=== PATIENT | male | born 1975 | race Two or more races ===

== ENCOUNTER 2023-06-01 11:36 | Outpatient (REF) | payer OTHER, SELFPAY ==
[2023-06-01 13:06] LABS: MANUAL DIFF FLAG NO
[2023-06-01 13:33] LABS: Basophils Percent Auto 0.5 % (0-2); Eosinophils Absolute Auto 0.4 X10*3/uL (0.0-0.4); Eosinophils Percent Auto 6.7 % (0-4); Hemoglobin 17.5 g/dl (14.0-18.0); Imm Gran Abs Auto 0.01 X10*3/uL (0.00-0.03); Imm Gran Pct Auto 0.2 % (0.0-0.4); Lymphocytes Absolute Auto 1.6 X10*3/uL (1.2-4.9); Lymphocytes Percent Auto 25.6 % (20-40); Mean Corpuscular HGB Conc 36.5 g/dl (31.0-36.0); Mean Corpuscular Hemoglobin 35.4 pg (27.0-33.0); Mean Platelet Volume 9.6 fL (9.4-12.4); Monocytes Absolute Auto 0.6 X10*3/uL (0.1-1.2); Monocytes Percent Auto 10.1 % (2-11); Neutrophils Absolute Auto 3.6 x10*3/uL (2.0-8.3); Neutrophils Percent Auto 56.9 % (45-73); Platelet Count 261 X10*3/uL (160-400); Red Blood Count 4.95 X10*6/uL (4.60-5.80); Red Cell Distribution Width 13.9 % (11.0-16.0); White Blood Count 6.3 X10*3/uL (4.8-10.8)
[2023-06-01 14:05] LABS: Alanine Aminotransferase 33 U/L (0-40); Albumin Level 4.1 g/dL (3.5-5.0); Alkaline Phosphatase 56 U/L (39-117); Anion Gap 12 (12-20); Aspartate Amino Transferase 30 U/L (5-37); Bilirubin Direct 0.5 mg/dL (0.0-0.5); Bilirubin Total 1.4 mg/dL (0.0-1.0); Blood Urea Nitrogen 18 mg/dL (9-16); Calcium 9.9 mg/dL (8.4-10.2); Carbon Dioxide 32 mmol/L (22-29); Chloride 102 mmol/L (96-108); Cholesterol 163 mg/dL (<200); Estimated Glomerular Filt Rate > 60; Glucose Random 102 mg/dL (60-115); HDL Cholesterol 34 mg/dL (>40); LDL Cholesterol Calculated 103 mg/dL (<100); Sodium 142 mmol/L (135-145); Total Protein 7.5 g/dL (6.5-8.0); Triglycerides 133 mg/dL (<150)
[2023-06-01 14:10] LABS: Estimated Average Glucose 103 mg/dL; Hemoglobin A1C 149.9984 umol/L; Hemoglobin A1c % 5.2 % (<6.0)
[2023-06-02 04:56] LABS: HIV AB/AG Nonreactive (Nonreactive); HIV Num 1 0.07 S/CO (0.00-0.99); ~HepC Num1 15.22 S/CO (0.00-0.79); ~Hepatitis C Antibody Reactive (Nonreactive)
[2023-06-04 12:38] LABS: HCV Log PCR 6.62 Log IU/mL (NOT DETECTED)
== END 2023-06-01 11:37 | disposition home or self-care (01) ==
LOC: HO.HHCL 11:36
PROVIDERS: Visit Provider Internal Medicine
DX: I10 Essential (primary) hypertension (principal)
CPT/HCPCS: 36415; 80048; 80061; 80076; 83036; 85025; 86803; 87389; 87522

== ENCOUNTER 2023-07-19 11:13 | Outpatient (REF) | payer OTHER, SELFPAY ==
[2023-07-19 13:28] LABS: INTERNATIONAL NORM RATIO 0.9 (0.9-1.1); Prothrombin Time 10.5 SEC (11.1-13.3)
[2023-07-20 08:45] LABS: Hepatitis A Antibody IgG REACTIVE (Nonreactive); ~Hepatitis A Antibody IgG 10.95 S/CO (0.00-0.99)
[2023-07-20 08:59] LABS: HBS Num1 0.22 mIU/mL (0-7.99); HBc Num1 0.27 S/CO (0.00-0.79); HBsAGNum1 0.42 S/CO (0.00-0.99); Hepatitis B Core Antibody Nonreactive (Nonreactive); Hepatitis B Surface Antigen Negative (Negative); ~Hepatitis B Surface Antibody NONREACTIVE (Nonreactive)
[2023-07-26 17:03] LABS: Hepatitis C Genotype 1a
[2023-07-30 16:53] LABS: FIB-ALT 24 U/L (9-46); FIB-Alpha-2-Macroglobulin 215 mg/dL (106-279); FIB-Apolipoprotein A1 137 mg/dL (94-176); FIB-GGT 83 U/L (3-95); FIB-Haptoglobin 163 mg/dL (43-212); Liver Fibrosis Score 0.44; Liver Fibrosis Stage F1-F2; Nec Inflam Act Grade A0; Nec Inflam Act Score 0.13
== END 2023-07-19 11:14 | disposition home or self-care (01) ==
LOC: HO.HHCL 11:13
PROVIDERS: Visit Provider Internal Medicine
DX: B18.2 Chronic viral hepatitis C (principal)
CPT/HCPCS: 36415; 81596; 85610; 86704; 86706; 86708; 87340; 87902

== ENCOUNTER 2023-09-27 14:35 | Outpatient (REF) | payer OTHER, SELFPAY ==
[2023-09-27 16:44] LABS: Anion Gap 14 (12-20); Blood Urea Nitrogen 20 mg/dL (9-16); Carbon Dioxide 30 mmol/L (22-29); Chloride 101 mmol/L (96-108); Estimated Glomerular Filt Rate > 60; Glucose Random 94 mg/dL (60-115); Potassium 3.6 mmol/L (3.3-5.1); Sodium 141 mmol/L (135-145)
== END 2023-09-27 14:36 | disposition home or self-care (01) ==
LOC: HO.HHCL 14:35
PROVIDERS: Visit Provider Internal Medicine
DX: I10 Essential (primary) hypertension (principal)
CPT/HCPCS: 36415; 80048

== ENCOUNTER 2023-12-27 10:44 | Outpatient (REF) | payer OTHER, SELFPAY ==
[2023-12-27 14:06] LABS: Anion Gap 10 (12-20); Blood Urea Nitrogen 21 mg/dL (9-16); Calcium 10.2 mg/dL (8.4-10.2); Carbon Dioxide 30 mmol/L (22-29); Chloride 103 mmol/L (96-108); Estimated Glomerular Filt Rate > 60; Glucose Random 89 mg/dL (60-115); Sodium 139 mmol/L (135-145)
[2023-12-27 14:10] LABS: PSA,Total (Free>4and<10) 0.86 ng/mL (0.00-4.00)
== END 2023-12-27 10:45 | disposition home or self-care (01) ==
LOC: HO.HHCL 10:44
PROVIDERS: Visit Provider Internal Medicine
DX: R10.30 Lower abdominal pain, unspecified (principal); I1A.0 Resistant hypertension; Z12.5 Encounter for screening for malignant neoplasm of prostate
CPT/HCPCS: 36415; 80048; 84153

== ENCOUNTER 2024-01-10 15:07 | Outpatient (AMB) | payer OTHER, SELFPAY ==
--- NOTE | 2024-01-10 13:25 | HO.NEPHOV ---
Vital Signs 01/10/24 15:08 Height 6 ft 3 in Weight 221 lb BMI 27.6 BP 126/84 Blood Pressure Location Lt brachial Position Sitting Pulse 77 Pulse Source Pulse Oximeter Pulse Oximetry (%) 98 Oxygen Delivery Method Room Air Intake Visit Reasons: Resistant Hypertension/ Conf Pyridine Operator Required: No Accompanied by: Spouse Allergies No Known Allergies Allergy (Verified 01/10/24 15:10) HPI Comments Details: 48 y/o male with a medical history of resistant HTN, erectile dysfunction, chronic hep C, tobacco use, loud snoring/hypersomnia (sleep studies pending). 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 smokin/2 pack cigarettes daily, 30 years alcohol: very little, drank more heavily in the past. Every day was drinking 1 liter each day or so. family hx: Not that he knows of medications: amlodipine 10mg daily, atenolol 50mg daily, chlorthalidone 50mg daily, olmesartan potassium gluconate 550mh daily. Providers: PCP: Dr Mery Hernandez at [facility] Specialists: he is not sure Imaging: none Creatinine, GFR: 09/27/23 creatinine 0.89, GFR >60 Urine: none on file diet, salt: does not avoid salt sugars: A1c 5.2 in May 2023 NSIADs/OTC medications: none Edema: denies urinary sx: none- denies flank pain, dysuria, blood in urine, difficulty emptying bladder joint pain: reports chronic low back pain, lots of heavy lifting at work reports pain under his belly button for three months now that occurs each time he has a bowel movement reports currently getting treatment for hep C at [facility], reports he has discussed with them and with PCP pain does not occur with urination also notes shortness of breath for 3-4 months, chest tightness with wheezing, continues to smoke, he is working on cutting down [employer] Medical History (Updated 01/10/24 @ 13:33 by Catherine Patel, [place], LOSS PREVENTION RESEARCH ENGINEER-BC) White coat syndrome with diagnosis of hypertension Erectile dysfunction Resistant hypertension Chronic hepatitis C without hepatic coma Hypersomnia Tobacco dependence syndrome Essential (primary) hypertension Review of Systems Const Denies anorexia, Denies fever(s) and Denies weakness Card Denies chest pain, Reports dyspnea and Reports dyspnea on exertion (reports wheezing) Resp Reports no additional complaints, Reports dyspnea and Reports dyspnea on exertion (reports wheezing) GI Reports abdominal pain (reports abdominal pain below belly button with bowel movements) and Denies diarrhea Denies hematuria Musc Denies tingling Skin/Breast Denies rash Neuro Denies focal weakness, Denies tingling, Denies tremor(s) and Denies weakness Physical Exam Vital Signs: Last Vital Signs Pulse 77 01/10/24 15:08 BP 126/84 01/10/24 15:08 Pulse Ox 98 01/10/24 15:08 Oxygen Delivery Method Room Air 01/10/24 15:08 BMI result Body Mass Index 27.6 Const General: comfortable and no acute distress Orientation/consciousness: oriented to person, oriented to place and oriented to time Neck Neck: Yes no JVD Resp Effort & Inspection: able to speak in complete sentences Auscultation: wheezes (bilateral middle upper lobes, inspiratory ) inspiratory wheezes Cardio Jugular venous distension: no JVD Rate: regular rate Rhythm: regular rhythm Heart sounds: S1 normal heart sound present and S2 normal heart sound present GI Palpation (GI): Soft to palpation and nontender General: Yes no CVA tenderness Back/Spine/Pelvis Back: no CVA tenderness Skin Rashes: no rashes Neuro General: oriented to person, oriented to place and oriented to time Extrem General: Yes normal to inspection, No edema and No pedal edema Results Reviewed Nephrology Results: Hgb 17.5 g/dl (14.0-18.0) 06/01/23 WBC 6.3 X10*3/uL (4.8-10.8) 06/01/23 Plt Count 261 X10*3/uL (160-400) 06/01/23 Sodium 139 mmol/L (135-145) 12/27/23 Potassium 4.0 mmol/L (3.3-5.1) 12/27/23 Chloride 103 mmol/L (96-108) 12/27/23 Carbon Dioxide 30 mmol/L (22-29) H 12/27/23 BUN 21 mg/dL (9-16) H 12/27/23 Creatinine 1.06 mg/dL (0.5-1.4) 12/27/23 Calcium 10.2 mg/dL (8.4-10.2) 12/27/23 Assessment & Plan Assessment & Plan (1) Resistant hypertension: Code(s): I1A.0 - Resistant hypertension Category: Medical (2) Chronic hepatitis C without hepatic coma: Code(s): B18.2 - Chronic viral hepatitis C Plan Blood pressure has normalized advised continue current blood pressure medication regimen, should monitor blood pressure at home if possible advised smoking cessation, weight loss, minimize salt, continue to avoid alcohol given hepatitis C, will check urine studies below, potential for glomerular disease patient to follow up in 1 month, blood work prior Orders: Orders Total Protein Urine Random Today B18.2 - Chronic viral hepatitis C, I1A.0 - Resistant hypertension UA w Microscopic Today B18.2 - Chronic viral hepatitis C, I1A.0 - Resistant hypertension Basic Metabolic Panel Today N18.30 - Chronic kidney disease, stage 3 unspecified Coding Level of Care Code New Pt Level 4 (29588) Diagnoses Resistant hypertension I1A.0 Chronic hepatitis C without hepatic coma B18.2
[2024-01-10 15:08] VITALS: BP 126/84; PULSE 77; O2SAT 98; BMI 27.6
== END 2024-01-10 15:54 | disposition home or self-care (01) ==
PROVIDERS: PCP Internal Medicine; Visit Provider Internal Medicine Hypertension Specialist
DX: I1A.0 Resistant hypertension (principal); B18.2 Chronic viral hepatitis C
CPT/HCPCS: 99204

== ENCOUNTER → 2024-01-10 15:07 | Outpatient (BNVA) | payer OTHER, SELFPAY | PROVIDERS: PCP Internal Medicine; Visit Provider Internal Medicine Hypertension Specialist | DX: I1A.0 Resistant hypertension (principal); N52.9 Male erectile dysfunction, unspecified; B18.2 Chronic viral hepatitis C; Z79.899 Other long term (current) drug therapy | CPT/HCPCS: 99202 ==

== ENCOUNTER 2024-02-08 09:55 | Outpatient (REF) | payer OTHER, SELFPAY ==
[2024-02-08 10:57] LABS: Appearance Urine Clear; Color Urine Yellow; Glucose Urine UA Negative (Negative); Leukocyte Esterase Urine Negative (Negative); Nitrite Urine Negative (Negative); PH 5.5 (5.0-9.0); UMIC TRIGGER UA YES; Urine Blood Trace (Negative); Urine Ketones Negative (Negative); Urine Protein Negative (Neg-Trace)
[2024-02-08 10:59] LABS: Bacteria Urine None Seen (None Seen); Hyaline Casts Urine 0-2 /LPF (0-2); RBC Urine 0-2 /HPF (0-2); Squamous Epithelial Cell Urine 0-2 /HPF (0-2); WBC Urine 0-5 /HPF (0-5)
[2024-02-08 11:43] LABS: Alanine Aminotransferase 18 U/L (0-40); Albumin Level 4.4 g/dL (3.5-5.0); Alkaline Phosphatase 59 U/L (39-117); Anion Gap 9 (12-20); Aspartate Amino Transferase 26 U/L (5-37); Bilirubin Direct 0.3 mg/dL (0.0-0.5); Bilirubin Total 1.4 mg/dL (0.0-1.0); Blood Urea Nitrogen 17 mg/dL (9-16); Carbon Dioxide 32 mmol/L (22-29); Chloride 104 mmol/L (96-108); Cholesterol 179 mg/dL (<200); Estimated Glomerular Filt Rate > 60; Glucose Random 100 mg/dL (60-115); HDL Cholesterol 26 mg/dL (>40); LDL Cholesterol Calculated 126 mg/dL (<100); Potassium 3.9 mmol/L (3.3-5.1); Sodium 141 mmol/L (135-145); Total Protein 7.6 g/dL (6.5-8.0); Triglycerides 139 mg/dL (<150)
[2024-02-08 11:45] LABS: Total Protein Urine Random 8 mg/dL (<12)
== END 2024-02-08 09:56 | disposition home or self-care (01) ==
LOC: HO.10HDL 09:55
PROVIDERS: Visit Provider Nurse Practitioner Family
DX: Z13.220 Encounter for screening for lipoid disorders (principal); I1A.0 Resistant hypertension; N18.30 Chronic kidney disease, stage 3 unspecified; B18.2 Chronic viral hepatitis C
CPT/HCPCS: 36415; 80048; 80061; 80076; 81001; 84156

== ENCOUNTER 2024-02-14 15:56 | Outpatient (AMB) | payer OTHER, SELFPAY ==
[2024-02-14 16:06] VITALS: BP 134/86; PULSE 83; O2SAT 99; BMI 28.0
--- NOTE | 2024-02-14 16:06 | HO.NEPHOV ---
Vital Signs 02/14/24 16:06 Height 6 ft 3 in Weight 224 lb BMI 28.0 BP 134/86 Blood Pressure Location Lt brachial Position Sitting Pulse 83 Pulse Source Pulse Oximeter Pulse Oximetry (%) 99 Oxygen Delivery Method Room Air Intake Visit Reasons: Resistant Hypertension/ Conf Mobile Service Rv Technician Required: No Accompanied by: Spouse Allergies No Known Allergies Allergy (Verified 02/14/24 16:08) Medication List - Last Reconciled 02/14/24 by Chaitanya Srinivasan MD amlodipine 10 mg PO DAILY atenolol 50 mg PO DAILY chlorthalidone 50 mg PO DAILY magnesium 250 mg PO DAILY nicotine 1 patch topical DAILY nicotine (polacrilex) 2 mg PO PRN olmesartan 20 mg PO DAILY omega-3 fatty acids 500 mg PO DAILY potassium gluconate 550 mg PO DAILY sildenafil (Viagra) 100 mg PO DAILY PRN HPI Comments Details: 48 y/o male with a medical history of resistant HTN, erectile dysfunction, chronic hep C, tobacco use, loud snoring/hypersomnia (sleep studies pending). 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 smokin/2 pack cigarettes daily, 30 years alcohol: very little, drank more heavily in the past. Every day was drinking 1 liter each day or so. family hx: Not that he knows of medications: amlodipine 10mg daily, atenolol 50mg daily, chlorthalidone 50mg daily, olmesartan potassium gluconate 550mh daily. Providers: PCP: Dr Mery Hernandez at [facility] Specialists: he is not sure Imaging: none Creatinine, GFR: 09/27/23 creatinine 0.89, GFR >60 Urine: none on file diet, salt: does not avoid salt sugars: A1c 5.2 in May 2023 NSIADs/OTC medications: none Edema: denies urinary sx: none- denies flank pain, dysuria, blood in urine, difficulty emptying bladder joint pain: reports chronic low back pain, lots of heavy lifting at work reports pain under his belly button for three months now that occurs each time he has a bowel movement reports currently getting treatment for hep C at [facility], reports he has discussed with them and with PCP pain does not occur with urination also notes shortness of breath for 3-4 months, chest tightness with wheezing, continues to smoke, he is working on cutting down 02/14/24 Doing well. Accompanied by his No new complaints [facility] Medical History (Updated 01/10/24 @ 13:33 by Catherine Patel, DNP, PHOTOGRAPHIC PROCESS ATTENDANT-) White coat syndrome with diagnosis of hypertension Erectile dysfunction Resistant hypertension Chronic hepatitis C without hepatic coma Hypersomnia Tobacco dependence syndrome Essential (primary) hypertension Physical Exam Vital Signs: Last Vital Signs Pulse 83 02/14/24 16:06 BP 134/86 02/14/24 16:06 Pulse Ox 99 02/14/24 16:06 Oxygen Delivery Method Room Air 02/14/24 16:06 BMI result Body Mass Index 28.0 Comfortable Neck supple no JVD. Lungs entry equal no rales. Heart S1-S2 heard no gallop or rub. Abdomen soft nontender. Neuro alert awake oriented. No asterixis. Extremities no edema. Results Reviewed Nephrology Results: Hgb 17.5 g/dl (14.0-18.0) 06/01/23 WBC 6.3 X10*3/uL (4.8-10.8) 06/01/23 Plt Count 261 X10*3/uL (160-400) 06/01/23 Sodium 141 mmol/L (135-145) 02/08/24 Potassium 3.9 mmol/L (3.3-5.1) 02/08/24 Chloride 104 mmol/L (96-108) 02/08/24 Carbon Dioxide 32 mmol/L (22-29) H 02/08/24 BUN 17 mg/dL (9-16) H 02/08/24 Creatinine 0.97 mg/dL (0.5-1.4) 02/08/24 Calcium 10.0 mg/dL (8.4-10.2) 02/08/24 Urine Protein Negative mg/dL (Neg-Trace) 02/08/24 Assessment & Plan Assessment & Plan (1) Resistant hypertension: Code(s): I1A.0 - Resistant hypertension Category: Medical (2) Chronic hepatitis C without hepatic coma: Code(s): B18.2 - Chronic viral hepatitis C Plan Blood pressure - better controlled advised continue current blood pressure medication regimen, should monitor blood pressure at home if possible advised smoking cessation, weight loss, minimize salt, continue to avoid alcohol h/o hepatitis C, treated Ua is bland No protienuria Renal function is NORMAL Orders: Orders UA and rflx microscopic 4 Months I1A.0 - Resistant hypertension Basic Metabolic Panel 4 Months I1A.0 - Resistant hypertension Coding Level of Care Code Est Pt Level 4 (53043) Diagnoses Resistant hypertension I1A.0 Chronic hepatitis C without hepatic coma B18.2
== END 2024-02-14 16:21 | disposition home or self-care (01) ==
PROVIDERS: PCP Internal Medicine; Visit Provider Internal Medicine Hypertension Specialist
DX: I1A.0 Resistant hypertension (principal); B18.2 Chronic viral hepatitis C
CPT/HCPCS: 99214

== ENCOUNTER → 2024-02-14 15:56 | Outpatient (BNVA) | payer OTHER, SELFPAY | PROVIDERS: PCP Internal Medicine; Visit Provider Internal Medicine Hypertension Specialist | DX: I1A.0 Resistant hypertension (principal); B18.2 Chronic viral hepatitis C | CPT/HCPCS: 99212 ==

== ENCOUNTER 2024-04-24 12:44 | Outpatient (REF) | payer OTHER, SELFPAY ==
[2024-04-24 13:15] LABS: MANUAL DIFF FLAG NO
[2024-04-24 13:39] LABS: Basophils Percent Auto 0.3 % (0-2); Eosinophils Absolute Auto 0.5 X10*3/uL (0.0-0.4); Eosinophils Percent Auto 7.4 % (0-4); Hematocrit 41.1 % (42.0-52.0); Imm Gran Abs Auto 0.01 X10*3/uL (0.00-0.03); Imm Gran Pct Auto 0.2 % (0.0-0.4); Lymphocytes Absolute Auto 2.1 X10*3/uL (1.2-4.9); Lymphocytes Percent Auto 31.7 % (20-40); Mean Corpuscular HGB Conc 36.5 g/dl (31.0-36.0); Mean Corpuscular Hemoglobin 38.3 pg (27.0-33.0); Mean Corpuscular Volume 104.8 fL (80.0-98.0); Mean Platelet Volume 9.5 fL (9.4-12.4); Monocytes Absolute Auto 0.7 X10*3/uL (0.1-1.2); Monocytes Percent Auto 10.4 % (2-11); Neutrophils Absolute Auto 3.3 x10*3/uL (2.0-8.3); Platelet Count 266 X10*3/uL (160-400); Red Blood Count 3.92 X10*6/uL (4.60-5.80); Red Cell Distribution Width 14.1 % (11.0-16.0); White Blood Count 6.7 X10*3/uL (4.8-10.8)
--- OUTSIDE RECORDS SUMMARY | 2024-04-24 14:01 | XMS_ITS | Clinical Summary ---
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 nicotine (Nicoderm CQ) 14 MG/24HR patchIndications: Tobacco dependence syndrome Place 1 patch on the skin 1 (one) time each day at the same time. 12 patch 024 Active nicotine (Nicoderm CQ) 7 MG/24HR patch Place 1 patch on the skin 1 (one) time each day at the same time. For 2 weeks 14 patch Active nicotine polacrilex ([facility] Nicotine) 2 MG gum Use 1 gum every 1 to 2 hours as needed. Do not exceed 5 lozenges/6 hours or 20 lozenges/day 100 each Active magnesium oxide (Mag-Ox) 250 MG tablet Take 250 mg by mouth Once per day. PURCHASES OTC (Unclear the actual Strength) Active olmesartan (Benicar) 20 MG tabletIndications :Resistant hypertension Take 1 tablet (20 mg) by mouth Once per day. 90 tablet 024 Active amLODIPine (Norvasc) 10 MG tabletIndications :Resistant hypertension Take 1 tablet (10 mg) by mouth Once per day. 90 tablet 3 024 Active omega-3 (Fish Oil) 1000 MG capsule PT PURCHASING OTC Active chlorthalidone (Hygroton) 50 MG tabletIndications :Essential hypertension TAKE 1 TABLET BY MOUTH EVERY DAY 90 tablet 1 Active amLODIPine-olmesa rtan (Haylee) 10-20 MG tabletIndications :Essential (primary) hypertension Take 1 tablet by mouth once daily 90 tablet 024 Active atorvastatin (Lipitor) 40 MG tabletIndications :Hyperlipidemia, unspecified hyperlipidemia type Take 1 tablet by mouth once daily 90 tablet 024 Active nicotine polacrilex (Nicotine Mini) 2 MG lozengeIndication s:Tobacco dependence syndrome Dissolve 1 lozenge (2 mg) in the mouth if needed for smoking cessation. 100 lozenge 025 2024 Active atenolol (Tenormin) 50 MG tabletIndications :Essential hypertension TOME ANDRE TABLETA TODOS LOS FERNANDEZ PARA LA PRESION ARTERIAL 90 tablet 3 025 Active sildenafil (Viagra) 100 MG tabletIndications :Erectile dysfunction, unspecified erectile dysfunction type Take 1 tablet (100 mg) by mouth if needed each day for erectile dysfunction. 12 tablet 025 2024 Active atenolol (Tenormin) 50 MG tabletIndications :Essential hypertension TAKE 1 TABLET BY MOUTH EVERY DAY FOR HYPERTENSION 90 tablet 3 024 2024 Discontinued sildenafil (Viagra) 100 MG tabletIndications :Erectile dysfunction, unspecified erectile dysfunction type Take 1 tablet (100 mg) by mouth if needed each day for erectile dysfunction. 12 tablet 024 2024 Discontinued(R eorder (will not trigger notification to Pharmacy)) Active Problems Problem Noted Date Diagnosed Date Palpitations 03/27/2024 Anxiety 03/27/2024 Assessment & Plan (03/28/2024 4:48 PM EST): Counseling done N referral Declines medications for now Resistant hypertension 12/21/2023 Assessment & Plan (12/21/2023 11:56 AM EDT): Olmesartan will be add today to his regime, c/w amlodipine, chlorthalidone and atenolol, I advise low Na diet and weight reduction Sleep studies pending I will refer patient to nephrology Erectile dysfunction 12/21/2023 White coat syndrome with diagnosis of hypertensi on 12/21/2023 Lower abdominal pain 12/21/2023 Chronic hepatitis C without hepatic coma 024 Assessment & Plan (06/21/2023 4:36 PM EDT): Patient to be follow by [facility]S hepatitis C team Hypersomnia 06/18/2023 Colon cancer screening 05/31/2023 Loud snoring 05/31/2023 Tobacco dependence syndrome 06/15/2022 Essential (primary) hypertension 12/25/2020 Overview (06/15/2022): Last Assessment & Plan: His hypertension is most likely essential in origin, as evidenced by its relatively long duration, known onset in his 30s, strong family history, and comorbidities of being overweight and tobacco use. Intermittent NSAID use could also be contributing. Based on reported home readings, it seems that his blood pressure has improved with the addition of enalapril. He is on all 3 recommended first-line antihypertensive agents, along with atenolol. He inquired specifically about the relationship between hypertension and erectile dysfunction. I informed him that hypertension is a risk for erectile dysfunction, and that numerous classes of antihypertensive agents can also contribute. We also discussed that tobacco use places him at increased risk, and used this as potential motivation toward quitting. I will make no immediate changes to his antihypertensives today. I did provide him a worksheet to perform 1 week of detailed home blood pressure monitoring (consisting of paired morning and evening readings) at his earliest convenience. His target blood pressure is less than 130/80. If he is at or near target, I would be inclined to discontinue atenolol, which would be the most likely of his current antihypertensives to contribute to erectile dysfunction. I counseled him on the importance of discontinuing NSAID use, limiting dietary sodium intake (and I provided him additional information about this in Latvian), and attempting to quit smoking. I will also obtain the most recent lab results from his primary care provider's office, primarily to investigate his kidney function and electrolytes. Assessment & Plan (03/28/2024 4:48 PM EST): I advised: - Aerobic exercise to reduce BP. Initial goal of 30 min walk 3-5x/week. Increase as tolerated. - low-sodium diet (goal: <2g/day) and heart healthy diet such as DASH to reduce BP and prevent ASCVD. - Home BP monitoring 1-2 x day with goal of <140/90. - Seek immediate medical attention for chest pain, palpitations, SOB, syncope, or sudden changes in mental status. - Do not change or discontinue current prescriptions without first consulting health care provider Assessment & Plan (06/21/2023 4:36 PM EDT): -I will increase his chlorthalidone to 50mg daily, c/w amlodipine 10mg daily and atenolol 50mg daily - Aerobic exercise to reduce BP. Initial goal of 30 min walk 3-5x/week. Increase as tolerated. - low-sodium diet (goal: <2g/day) and heart healthy diet such as DASH to reduce BP and prevent ASCVD. - Home BP monitoring 1-2 x day with goal of <140/90. - Seek immediate medical attention for chest pain, palpitations, SOB, syncope, or sudden changes in mental status. - Do not change or discontinue current prescriptions without first consulting health care provider Assessment & Plan (05/31/2023 3:44 PM EDT): Maintenance: BMP: ordered today Lipid Panel: ordered today ASCVD Risk: Calculate pending updated labs BP not at goal I ask patient to log his bBP at home and to have his log for next visit - Aerobic exercise to reduce BP. Initial goal of 30 min walk 3-5x/week. Increase as tolerated. - low-sodium diet (goal: <2g/day) and heart healthy diet such as DASH to reduce BP and prevent ASCVD. - Home BP monitoring 1-2 x day with goal of <140/90. - Seek immediate medical attention for chest pain, palpitations, SOB, syncope, or sudden changes in mental status. - Do not change or discontinue current prescriptions without first consulting health care provider Encounters * This document contains information received from the source organization and may not represent a complete record from that organization. Date Type Department Care Team Description 04/14/2024 Telephone [facility] [address] [place] [address] Vandana Bennett, CYNDIE Call Back Request 04/12/2024 Refill [facility] [address] [place] [phone] Mery Theodore MD Erectile dysfunction, unspecified erectile dysfunction type 04/12/2024 Telephone [facility] [address] [place] [phone] Mery Theodore MD Med Refill 04/12/2024 Refill [facility] [address] [place] [address] Mery Theodore MD Essential hypertension 03/27/2024 10:00 AM EST Office Visit [facility] [address] [place] [phone] Mery Theodore MD Essential (primary) hypertension (Primary Dx); Palpitations; Anxiety; Tobacco dependence syndrome 03/27/2024 Travel 03/21/2024 Patient Outreach [facility] [address] [place] [phone] Mery Theodore MD 03/21/2024 Patient Outreach [facility] [address] [place] [phone] Mery Theodore MD Pre-visit Planning (SDOH screening completed on 05/31/2023) 03/08/2024 Orders Only [facility] [address] [place] [phone] Keturah Da Silva, pest control service sales agent hepatitis C without hepatic coma (CMS/HCC) 03/07/2024 Refill [facility] P[facility] [address] [place], [place] [phone] Mery Theodore MD Erectile dysfunction, unspecified erectile dysfunction type 03/07/2024 Travel 03/06/2024 Telephone [facility] [address] [place] [phone] Aleja Tang, PharmD insurance 02/14/2024 Refill [facility] [address] [place] [phone] Mery Theodore MD Essential hypertension 02/08/2024 Orders Only GENERIC EXTERNAL DATA DEPARTMENT Provider, Generic External Data 01/28/2024 Telephone [facility] [address] [place] [address] Mery Theodore MD 01/25/2024 Refill [facility] PEDS [address] [place] [address] Mery Theodore MD Erectile dysfunction, unspecified erectile dysfunction type 01/25/2024 Travel from Last 3 Months Immunizations Name Administration Dates Next Due Influenza injectable quadrivalent preservative f ree 12/25/2020 Tdap 04/29/2021 Social History Tobacco Use Types Packs/Day Years Used Date Smoking Tobacco: Some Days Cigarettes Passive Smoke Exposure: Current Smokeless Tobacco: Current Tobacco Cessation:Ready to Q uit: No; Counseling Given: Yes Alcohol Use Standard Drinks/Week Comments Never 0 (1 standard drink = 0.6 oz pur e alcohol) Depression Answer Date Recorded Patient Health Questionnaire-9 Score 0 05/31/2023 Patient Health Questionnaire-9 Score 0 05/31/2023 Last PHQ-9: Questionnaire Data Not on file 0 05/31/2023 Housing Stability Answer Date Recorded What is your housing situation today? I have mila dsouza 05/31/[address] you li ve. Do you have problems with any of the following? None of the above 05/31/2023 Food Insecurity Answer Date Recorded Within the past 12 months, y ou worried that your food would run out before you got money to buy more: Never True 05/31/2023 Within the past 12 months,th e food you bought just didn't last and you didn't have enough money to get more: Never True 01/2024 Transportation Answer Date Recorded In the past 12 months, has l ack of transportation kept you from medical appts, meetings, work or from getting things needed for daily living? No 05/31/2023 Utilities Answer Date Recorded In the past 12 months, has t he electric, gas, oil or water company threatened to shut off services in your home? No 05/31/2023 Depression Answer Date Recorded Patient Health Questionnaire-2 Score 0 05/31/2023 Sex and Gender Information Value Date Recorded Sex Assigned at Male 01/19/2022 10:39 AM EDT Legal Sex Male 10:39 AM EDT Gender Identity Choose not to disclose 10:39 AM EDT Sexual Orientation Choose not to disclose 2021 10:39 AM EDT Last Filed Vital Signs Vital Sign Reading Time Taken Comments Blood Pressure 128/87 03/27/2024 10:19 AM EST Pulse 68 03/27/2024 10:19 AM EST Temperature 36.6 ??C (97.8 ??F) 03/27/2024 10:[address] Respiratory Rate 18 03/27/2024 10:19 AM EST Oxygen Saturation 97% 12/21/2023 9:22 AM EDT Inhaled Oxygen Concentration - - Weight 100 kg (221 lb 6.4 oz) 03/27/2024 10:19 A M EST Height 185.4 cm (6' 1 ) 03/27/2024 10:19 AM EST Body Mass Index 29.21 03/27/2024 10:19 AM EST Plan of Treatment Upcoming Encounters Date Type Department Care Team (Late st Contact Info) Description 07/11/2024 10:00 AM EDT Office Visit [facility] [address] [place] [address] Mery Theodore MD [address] [place] [address] Health Maintenance Due Date Last Done Comments CT Colonography 1976 Colonoscopy 1976 Dental Oral Exam 1976 Dental Prophylaxis 1976 Dental X-Ray: Bitewings 1976 Dental X-Ray: Full Mouth 1976 FIT 1976 FOBT 1976 Sigmoidoscopy 1976 Alcohol/Substance Use Screening 1988 Family Planning (PISQ) 01/11/1991 Hepatitis A Vaccines (1 of 2 - Risk 2-dose series) 01/11/1995 Hepatitis B Vaccines (1 of 3 - 19+ 3-dose series) 01/11/1995 Pneumococcal Vaccine: Pediatrics (0 to 5 Years) and At-Risk Patients (6 to 49) Years) (1 of 2 - PCV) 01/11/1995 COVID-19 Vaccine (2023-2 5 season) 2023 12/10/2020, 11/19/2020 Influenza Vaccine (#1) 2023 12/25/2020 Depression Screening 05/30/2024 05/31/2023, 05/31/2023 SDOH Screening 05/30/2024 05/31/2023 Tobacco Screening 03/07/2025 03/07/2024 Zoster Vaccines (1 of 2) 01/11/2026 Colorectal Cancer Screening 06/21/2026 FIT DNA/Cologuard 06/21/2026 06/22/2023 Lipid Panel 02/07/2029 02/08/2024, 06/01/2023, 12/25/2020 DTaP/Tdap/Td Vaccines (2 - T d or Tdap) 04/29/2031 04/29/2021 RSV Patients and Patients Aged 60 years or older (1 - 1-dose 75+ series) 01/11/2051 HIV Screening Completed 06/01/2023 HIB Vaccines Aged Out No longer eligi ble based on patient's age to complete this topic HPV Vaccines Aged Out No longer eligi ble based on patient's age to complete this topic IPV Vaccines Aged Out No longer eligi ble based on patient's age to complete this topic Meningococcal Vaccine Aged Out No adri kolton eligible based on patient's age to complete this topic RSV under 20 months Aged Out No longe r eligible based on patient's age to complete this topic Rotavirus Vaccines Aged Out No longer eligible based on patient's age to complete this topic Goals Goal Patient Goal Type Associated Problems Recent Progress Patient-Stated? Author Blood Pressure < 140/90 Blood Pressure 128/87( 025 10:19 AM EST) No Piers-Gambl e, Aleja, PharmD Quit using tobacco (cigarettes, smokeless, etc) Tobacco Use No Piers-Gambl e, Aleja, PharmD Procedures Procedure Name Priority Date/Time Associated Diagnosis Comments CBC WITH AUTO DIFFERENTIAL Routine 04/24/2024 12:50 PM EST Essential (primary) hypertension Palpitations URINE PROTEIN, TOTAL, RANDOM (W/O CREATININE) Routine 02/08/2024 10:00 AM EST LIPID PANEL, STANDARD Routine 02/08/2024 10:00 AM EST BASIC METABOLIC PANEL Routine 02/08/2024 10:00 AM EST HEPATIC FUNCTION PANEL Routine 02/08/2024 10:00 AM EST URINALYSIS, COMPLETE Routine 02/08/2024 10:00 AM EST LAB COLOGUARD?? COLON CANCER SCREEN Routine 06/22/2023 7:30 AM EDT Colon cancer screening HIV 1/2 ANTIGEN/ANTIBODY, FOURTH GENERATION W/RFL Routine 06/01/2023 11:39 AM EDT Essential (primary) hypertension from Last 3 Months or Most Recently Relevant to Health Maintenance Results * (ABNORMAL) CBC auto differential (04/24/2024 12:50 PM EST) White Blood Count 6.7 4.8 - 10.8 X10*3/uL [facility] Red Blood Count 3.92(L) 4.60 - 5.80 X10*6/uL [facility] Hemoglobin 15.0 14.0 - 18.0 g/dl [facility] Hematocrit 41.1(L) 42.0 - 52.0 % [facility] Mean Corpuscular Volume 104.8(H) 80.0 - 98.0 fL [facility] Mean Corpuscular Hemoglobin 38.3(H) 27.0 - 33.0 pg [facility] Mean Corpuscular HGB Conc 36.5(H) 31.0 - 36.0 g/dl [facility] Red Cell Distribution Width 14.1 11.0 - 16.0 % [facility] Platelet Count 266 160 - 400 X10*3/uL [facility] Mean Platelet Volume 9.5 9.4 - 12.4 fL [facility] Neutrophils Percent Auto 50.0 45 - 73 % [facility] Imm Gran Pct Auto 0.2 0.0 - 0.4 % [facility] Lymphocytes Percent Auto 31.7 20 - 40 % [facility] Monocytes Percent Auto 10.4 2 - 11 % [facility] Eosinophils Percent Auto 7.4(H) 0 - 4 % [facility] Basophils Percent Auto 0.3 0 - 2 % [facility] NRBC Pct Auto 0.0 0.0 - 0.2 /100WBC [facility] Neutrophils Absolute Auto 3.3 2.0 - 8.3 x10*3/uL [facility] Imm Gran Abs Auto 0.01 0.00 - 0.03 X10*3/uL [facility] Lymphocytes Absolute Auto 2.1 1.2 - 4.9 X10*3/uL [facility] Monocytes Absolute Auto 0.7 0.1 - 1.2 X10*3/uL [facility] Eosinophils Absolute Auto 0.5(H) 0.0 - 0.4 X10*3/uL [facility] Basophils Absolute Auto 0.0 0.0 - 0.2 X10*3/uL [facility] NRBC Abs Auto 0.000 0.0 - 0.012 X10*3/uL [facility] Blood Venous blood specimen / Unknown 04/24/2024 12:50 PM EST 04/24/2024 1:10 PM EST us Mery Hernandez MD LAB BLOOD ORDERABLES Final Result Performing Organization Address City/[facility]/ZIP Co de Phone Number [facility] [address] [place] [phone] * Urine Protein, Total, Random without Creatinine (02/08/2024 10:00 AM EST) Protein, Total, Random Urine 8 <12 mg/dL [facility] 02/08/2024 10:0 0 AM EST 02/08/2024 10:49 AM EST us Generic External Data Provider LAB URINE ORDERAB LES Final Result [facility] [address] [place] [phone] * (ABNORMAL) Urinalysis Complete (02/08/2024 10:00 AM EST) Color Urine Yellow [facility] Appearance Urine Clear [facility] PH 5.5 5.0 - 9.0 [facility] Glucose Urine UA Negative Negative mg/dL [facility] Urine Blood Trace(A) Negative [facility] Specific [place] - Urine 1.020 1.005 - 1.025 [facility] Urine Protein Negative Neg-Trace mg/dL [facility] Urine Ketones Negative Negative mg/dL [facility] Nitrite Urine Negative Negative [facility] Leukocyte Esterase Urine Negative Negative [facility] RBC Urine 0-2 0 - 2 /HPF [facility] Urine WBC 0-5 0 - 5 /HPF [facility] Urine Squamous Epithelial Cell 0-2 0 - 2 /HPF [facility] Urine Bacteria None Seen None Seen [facility] Hyaline Casts, Urine 0-2 0 - 2 /LPF [facility] 02/08/2024 10:0 0 AM EST 02/08/2024 10:49 AM EST us Generic External Data Provider LAB URINE ORDERAB LES Final Result [facility] [address] [place] [phone] * (ABNORMAL) Hepatic Function Panel (02/08/2024 10:00 AM EST) Bilirubin, Total 1.4(H) 0.0 - 1.0 mg/dL [facility] Bilirubin, Direct 0.3 0.0 - 0.5 mg/dL [facility] Aspartate Amino Transferase 26 5 - 37 U/L [facility] Alanine Aminotransferase 18 0 - 40 U/L [facility] Total Protein 7.6 6.5 - 8.0 g/dL [facility] Albumin Level 4.4 3.5 - 5.0 g/dL [facility] Alkaline Phosphatase 59 39 - 117 U/L [facility] 02/08/2024 10:0 0 AM EST 02/08/2024 10:52 AM EST Mery Hernandez MD LAB BLOOD ORDERABLES Final Result Performing Organization Address [facility] Co de Phone Number [facility] [address] [place] [phone] * (ABNORMAL) Lipid Panel, Standard (02/08/2024 10:00 AM EST) Triglycerides 139 <150 mg/dL [facility] Comment:Desirable Triglyceri de: less than 150 mg/dLBorderline High Triglyceride 150-199 mg/dLHigh Triglyceride: 200-499 mg/dLVery High Triglyceride: greater than or equal to 5OO mg/dL Cholesterol 179 <200 mg/dL [facility] Comment:Desirable Cholestero l: less than 200 mg/dLBorderline High Cholesterol: 200-239 mg/dLHigh Cholesterol: greater than 239 mg/dL LDL Cholesterol Calculated 126(H) <100 mg/dL [facility] Comment:Desirable LDL: less than 100 mg/dLNear Optimal/Above Optimal LDL: 110- 129 mg/dLBorderline High LDL: 130-159 mg/dLHigh LDL: 160-189 mg/dLVery High LDL: greater than or equal to 190 mg/dL HDL Cholesterol 26(L) >40 mg/dL [facility] Comment:Desirable HDL: great er than 40 mg/dL Note: This HDL assay may give artificially low results in patients with liver disease. 02/08/2024 10:0 0 AM EST 02/08/2024 10:52 AM EST us Mery Hernandez MD LAB BLOOD ORDERABLES Final Result Performing Organization Address [facility]/ZIP Co de Phone Number [facility] [address] [place] [phone] * (ABNORMAL) Basic Metabolic Panel (02/08/2024 10:00 AM EST) Pathologist [facility] Sodium 141 135 - 145 mmol/L [facility] Potassium 3.9 3.3 - 5.1 mmol/L [facility] Chloride 104 96 - 108 mmol/L [facility] Carbon Dioxide 32(H) 22 - 29 mmol/L [facility] Anion Gap 9(L) 12 - 20 [facility] Urea Nitrogen (BUN) 17(H) 9 - 16 mg/dL [facility] Creatinine, Serum 0.97 0.5 - 1.4 mg/dL [facility] Estimated Glomerular Filt Rate >60 [facility] Comment:Chronic Kidney Disea se: Estimated GFR < 60 mL/min/1.29e6Arpbjx Kidney Disease: Estimated GFR < 15 mL/min/1.73m2 Glucose 100 60 - 115 mg/dL [facility] Calcium 10.0 8.4 - 10.2 mg/dL [facility] 02/08/2024 10:0 0 AM EST 02/08/2024 10:52 AM EST us Generic External Data Provider LAB BLOOD ORDERAB LES Final Result [facility] [address] [place] [phone] * Cologuard?? colon cancer screening (06/22/2023 7:30 AM EDT) Pathologist [facility] Cologuard Result Negative Negative 06/26/19 24 12:44 AM EDT [employer] (CLIA #:[id number]) Comment: NEGATIVE TEST RESULT. A negative Cologuard result indicates a low likelihood that a colorectal cancer (CRC) or advanced adenoma (adenomatous polyps with more advanced pre-malignant features) ??is present. The chance that a person with a negative Cologuard test has a colorectal cancer is less than 1 in 1500 (negative predictive value >99.9%) or has an ??advanced adenoma is less than ??5.3% (negative predictive value 94.7%). These data are based on a prospective cross-sectional study of 10,000 individuals at average risk for colorectal cancer who were screened with both Cologuard and colonoscopy. (Joesph Todd al, N Engl J Med 2014;370(14):1286- 1297) The normal value (reference range) for this assay is negative. COLOGUARD RE-SCREENING RECOMMENDATION: Periodic colorectal cancer screening is an important part of preventive healthcare for asymptomatic individuals at average risk for colorectal cancer. ??Following a negative Cologuard result, the [place] [employer] and U.S. Multi-Society Task Force screening guidelines recommend a Cologuard re-screening interval of 3 years. References: [place] [employer] Guideline for Colorectal Cancer Screening: https://www.cancer.org/cancer/vtwcc-wglgbn-checcr/fnnyolgqf-bgnvgwwdj-aeqjntb/ac s-rec ommendations.html.; Surjit DK, Joellen JARVIS, Jessica ShoreK, Colorectal Cancer Screening: Recommendations for Physicians and Patients from the U.S. Multi-Society Task Force on Colorectal Cancer Screening , Am J Gastroenterology 2017; 112:6715-1955. TEST DESCRIPTION: Composite algorithmic analysis of stool DNA-biomarkers with hemoglobin immunoassay. ?? Quantitative values of individual biomarkers are not reportable and are not associated with individual biomarker result reference ranges. Cologuard is intended for colorectal cancer screening of adults of either sex, 45 years or older, who are at average-risk for colorectal cancer (CRC). Cologuard has been approved for use by the U.S. FDA. The performance of Cologuard was established in a cross sectional study of average-risk adults aged 50-84. Cologuard performance in patients ages 45 to 49 years was estimated by sub-group analysis of near-age groups. Colonoscopies performed for a positive result may find as the most clinically significant lesion: colorectal cancer [4.0%], advanced adenoma (including sessile serrated polyps greater than or equal to 1cm diameter) [20%] or non- advanced adenoma [31%]; or no colorectal neoplasia [45%]. These estimates are derived from a prospective cross-sectional screening study of 10,000 individuals at average risk for colorectal cancer who were screened with both Cologuard and colonoscopy. (Joesph Todd al, N Engl J Med 2014;370(14):9806-2612.) Cologuard may produce a false negative or false positive result (no colorectal cancer or precancerous polyp present at colonoscopy follow up). A negative Cologuard test result does not guarantee the absence of CRC or advanced adenoma (pre-cancer). The current Cologuard screening interval is every 3 years. ([place] [employer] and U.S. Multi-Society Task Force). Cologuard performance data in a 10,000 patient pivotal study using colonoscopy as the reference method can be accessed at the following location: www.[employer].com/results. Additional description of the Cologuard test process, warnings and precautions can be found at www.[employer].com. Stool specimen (specimen) 06/22/2023 7:30 AM EDT 06/23/2023 11:01 AM EDT Mery Hernandez MD LAB MOLECULAR DIAGNOS TICS ORDERABLES Final Result [employer] (CLIA #:[id number]) [place] [address] [place] [address], * HIV-1/2 Antigen and Antibodies, Fourth Generation, with Reflexes (06/01/2023 11:39 AM EDT) HIV AB/AG Nonreactive Nonreactive [facility] Comment:HIV-1 p24 Ag and/or HIV-1/HIV-2 Ab not detected.A test result that is nonreactive does not exclude thepossibility of exposure to or infection with HIV-1 and/orHIV-2. Nonreactive results in this assay for individualswith prior exposure to HIV-1 and/or HIV-2 may be due toantigen and antibody levels that are below the limit ofdetection of this assay.The [employer] HIV Ag/Ab Combo assay result andsupplemental assay results should be interpreted inconjunction with the patient's clinical presentation,history and other laboratory results. If the results areinconsistent with clinical evidence, additional testing issuggested to confirm the result. Blood Venous blood specimen / Unknown 06/01/2023 11:39 AM EDT 06/01/2023 1:01 PM EDT us Mery Hernandez MD LAB BLOOD ORDERABLES Final Result [facility] [address] [place] [address] [phone] from Last 3 Months or Most Recently Relevant to Health Maintenance Insurance [facility] - HSN FULL (MEDICAID) Advance Directives Documents on File Type Date Recorded Patient Global Compensation Manager Expl anation HealthCare Proxy 02/09/2024 2:22 PM proxy Advance Directives and Living Will 09/26/2023 Health Care Proxy 09/26/23 Care Teams Rock Room Worker Relationship Specialty Start Date End Date Mery Theodore MD [address] [place] [address] PCP - General Internal Medicine 04/19/23 Aleja Tang, JorgeD [address] [place] [address] Pharmacist Internal Medicine 07/19/23
--- OUTSIDE RECORDS SUMMARY | 2024-04-24 14:01 | XMS_ITS | Clinical Summary ---
Author Organization [facility] Address [address] [place] [address] Care Team Providers Care Extraction Supervisor Name Role Phone Nathalie Leroy Primary Care Provider [phone] Allergies No known active allergies Medications amLODIPine (NORVASC) 10 mg tablet Take 10 mg by mouth once a day. Active chlorthalidone (HYGROTEN) 25 mg tablet Take 25 mg by mouth once a day. Active enalapril (VASOTEC) 10 mg tablet Take 10 mg by mouth once a day. Active atenoloL (TENORMIN) 50 mg tablet Take 50 mg by mouth once a day. Active omeprazole (PriLOSEC) 40 mg capsule Take 1 capsule (40 mg total) by mouth once a day. 30 capsule 2 05/26/2021 Active Active Problems Problem Noted Date Diagnosed Date Essential (primary) hypertension 03/05/2021 Assessment & Plan (03/05/2021 12:14 PM EST): His hypertension is most likely essential in [...] provided him additional information about this in Georgian), and attempting to quit smoking. I will also obtain the most recent lab results from his primary care provider's office, primarily to investigate his kidney function and electrolytes. Overweight (BMI 25.0-29.9) 03/05/2021 Assessment & Plan (03/05/2021 12:15 PM EST): His BMI is higher than optimal at 27. In overweight individuals, a 10-kilogram weight loss results in an average reduction in systolic blood pressure of 5 to 20 mmHg. Gradual weight loss should be encouraged through diet and exercise. Family History Medical History Relation Name Comments Hypertension Father Hypertension Mother Relation Name Status Comments Father Mother Social History Tobacco Use Types Packs/Day Years Used Date Smoking Tobacco: Every Day Cigarettes Smokeless Tobacco: Never Alcohol Use Standard Drinks/Week Comments Never 0 (1 standard drink = 0.6 oz pur e alcohol) Sex and Gender Information Value Date Recorded Sex Assigned at Not on file Legal Sex Male 9:16 AM EDT Gender Identity Not on file Sexual Orientation Not on file Last Filed Vital Signs Vital Sign Reading Time Taken Comments Blood Pressure 130/89 03/05/2021 11:14 AM EST Pulse 68 03/05/2021 11:14 AM EST Temperature 36.5 ??C (97.7 ??F) 03/05/2021 11:[address] Respiratory Rate - - Oxygen Saturation - - Inhaled Oxygen Concentration - - Weight 98 kg (216 lb) 03/05/2021 11:14 AM EST Height 190.5 cm (6' 3 ) 03/05/2021 11:14 AM EST Body Mass Index 27 03/05/2021 11:14 AM EST Plan of Treatment Health Maintenance Due Date Last Done Comments Cologzafarrd 1976 Colon Cancer Screening 1976 Colonoscopy 1976 FOBT / Fit Test 1976 HIV Screening 1976 Hepatitis C Screening 1976 Sigmoidoscopy 1976 Pneumococcal Vaccine: Pediat melida (0-5 Years) and At-Risk Patients (6-64 Years) (1 of 2 - PCV) 01/11/1982 Hepatitis B Vaccines (1 of 3 - 19+ 3-dose series) 12/21 DTaP,Tdap,and Td Vaccines (1 - Tdap) 01/11/1998 Basic Metabolic Panel 11/20/2021 11/20/2020 COVID-19 Vaccine (1 - 2023-25 season) 2023 Influenza Vaccine (#1) 2023 Alcohol/Substance Use Screening 03/22/2024 Depression Screening and Follow-Up 03/22/2024 Social Drivers of Health Annual Screening 03/22/2024 RSV Vaccine (60+ years old a nd patients) (1 - 1-dose 75+ series) 01/11/2051 Insurance [address] [place] [address] [facility] Advance Directives Documents on File Type Date Recorded Patient Tunnel Heading Inspector Expl anation Health Care Proxy 03/05/2021 12:15 PM HEA LT CARE PROXY Care Teams Extraction Supervisor Relationship Specialty Start Date End Date Nathalie Leroy [address] [place] [address] PCP - General 01/02/21
--- OUTSIDE RECORDS SUMMARY | 2024-04-24 14:01 | XMS_ITS | Encounter Summary ---
Author Organization [employer] Address [address] [facility] 7t [place] [address] Care Team Providers Care Faro Dealer Name Role Phone Yolanda Sylvie [facility] Primary Care Provider [phone] Mery Theodore MD Primary Care Provide r Aleja Tang PharmD Unavailable [phone] Encounter Details Date Type Department Care Team (Late Contact Info) Description 06/03/2022 Orders Only [facility] [address] [place] [address] Chiara Aponte LPN Social History Tobacco Use Types Packs/Day Years Used Date Smoking Tobacco: Never Assessed Sex and Gender Information Value Date Recorded Sex Assigned at Male 01/19/2022 10:39 AM EDT Legal Sex Male 10:39 AM EDT Gender Identity Choose not to disclose 10:39 AM EDT Sexual Orientation Choose not to disclose 2021 10:39 AM EDT documented as of this encounter Plan of Treatment Upcoming Encounters Date Type Department Care Team (Late st Contact Info) Description 07/11/2024 10:00 AM EDT Office Visit [facility] [address] [place], [place] [phone] Mery Theodore MD [address] [place], [place] [phone] documented as of this encounter Visit Diagnoses Not on filedocumented in this encounter Care Teams Faro Dealer Relationship Specialty Start Date End Date Sylvie Guerrero FNP [address] [place] [address] PCP - General Family Medicine 11/14/21 04/18/23 Mery Theodore MD [address] [place] [address] PCP - General Internal Medicine 04/19/23 Aleja Tang, JorgeD [address] [place] [address] Pharmacist Internal Medicine 07/19/23 documented as of this encounter
--- OUTSIDE RECORDS SUMMARY | 2024-04-24 14:01 | XMS_ITS | Encounter Summary ---
Author Organization [employer] Address [address] [facility] 7t [place] [address] Care Team Providers Care Pie Icer Machine Name Role Phone Sylvie Guerrero [facility] Primary Care Provider [phone] Mery Theodore MD Primary Care Provide r Aleja Tang PharmD Unavailable Reason for Visit * Reason Comments Med Refill Encounter Details Date Type Department Care Team (Late st Contact Info) Description 02/27/2023 Refill [facility] [address] [place], [place] [phone] Yolanda [facility] [place] [address] [place], [place] [phone] Essential hypertension Social History Tobacco Use Types Packs/Day Years [...] Description 07/11/2024 10:00 AM EDT Office Visit [facility] [address] [place], [place] [phone] Mery Theodore MD [address] [place], [place] [phone] documented as of this encounter Visit Diagnoses Diagnosis Essential hypertension Unspecified essential hypertension documented in this encounter Care Teams Pie Icer Machine Relationship Specialty Start Date End Date Sylvie Guerrero FNP [address] [place] [address] PCP - General Family Medicine 11/14/21 04/18/23 Mery Theodore MD [address] [place] [address] PCP - General Internal Medicine 04/19/23 Aleja Tang, Arsh [address] [place] [phone] Pharmacist Internal Medicine 07/19/23 documented as of this encounter
--- OUTSIDE RECORDS SUMMARY | 2024-04-24 14:01 | XMS_ITS | Encounter Summary ---
Author Organization [employer] Address [address] [facility] 7t [place] [address] Care Team Providers Care Maori Physiotherapist Name Role Phone Mery Theodore MD Primary Care Provide r Aleja Tang PharmD Unavailable [phone] Reason for Visit * Reason Onset Date Comments Call Back Request 04/14/2024 Encounter Details Date Type Department Care Team (Late st Contact Info) Description 04/14/2024 Telephone [facility] [address] [place], [place] [phone] Vandana Bennett, CYNDIE [address] [place] [address] Call Back Request Social History Tobacco Use Types Packs/Day Years Used Date Smoking Tobacco: Some Days Cigarettes Passive Smoke Exposure: Current Smokeless Tobacco: Current Alcohol Use Standard Drinks/Week Comments Never 0 (1 standard drink = 0.6 oz pur e alcohol) Depression Answer Date Recorded Patient Health Questionnaire-9 Score 0 05/31/2023 Patient Health Questionnaire-9 Score 0 05/31/2023 Last PHQ-9: Questionnaire Data Not on file 0 05/31/2023 Housing Stability Answer Date Recorded What is your housing situation today? I have milachanelle dsouza 05/31/[address] you [...] AM EDT documented as of this encounter Miscellaneous Notes * Telephone Encounter - Vandana Bennett RN - 04/19/2024 9:17 AM EST RN called pt to inform labs for test of cure due. Pt states he will come in Wednesday to complete. * Telephone Encounter - Vandana Bennett RN - 04/19/2024 8:55 AM EST RN called pt to remind of test of cure, no answer, LVM for return call. RN will continue to try to reach pt. * Telephone Encounter - Vandana Bennett RN - 04/17/2024 4:04 PM EST RN called pt at number requested below. No answer, LVM for return call. * Telephone Encounter - Evert Fall - 04/17/2024 2:04 PM EST Tc from pt returning call CB # [phone] * Telephone Encounter - Vandana Bennett RN - 04/17/2024 9:22 AM EST RN called pt x2, no answer, was able to LVM for return call. RN will continue to reach pt. RN called pt to remind to get labs done for HEP C test of cure and others. No answer, # OOS. RN will continue to attempt to reach pt. * Telephone Encounter - Vandana Bennett RN - 04/14/2024 12:51 PM EST RN called pt to remind to get labs done for HEP C test of cure and others. No answer, # OOS. RN will continue to attempt to reach pt. documented in this encounter Plan of Treatment Upcoming Encounters Date Type Department Care Team (Late st Contact Info) Description 07/11/2024 10:00 AM EDT Office Visit [facility] [address] [place] [address] Mery Theodore MD [address] [place] [address] documented as of this encounter Goals Goal Patient Goal Type Associated Problems Recent Progress Patient-Stated? Author Blood Pressure < 140/90 Blood Pressure 128/87( 025 10:19 AM EST) No Piers-Gambl e, Aleja, PharmD Quit using tobacco (cigarettes, smokeless, etc) Tobacco Use No Piers-Gambl e, Aleja, PharmD documented as of this encounter Visit Diagnoses Not on filedocumented in this encounter Additional Health Concerns Assessment Noted Time PHQ-9 Depression Total Score: 0 05/31/19 24 2:12 PM EDT documented as of this encounter Care Teams Maori Physiotherapist Relationship Specialty Start Date End Date Mery Theodore MD [address] [place] [address] PCP - General Internal Medicine 04/19/23 Aleja Tang, Arsh [address] [place] [address] Pharmacist Internal Medicine 07/19/23 documented as of this encounter
--- OUTSIDE RECORDS SUMMARY | 2024-04-24 14:01 | XMS_ITS | Encounter Summary ---
Author Organization [employer] Address [address] [facility] 7t [place] [address] Care Team Providers Care Double Head Machine Operator Name Role Phone Mery Theodore MD Primary Care Provide r Aleja Tang PharmD Unavailable [phone] Reason for Visit * Reason Onset Date Comments Med Refill 08/23/2023 Encounter Details Date Type Department Care Team (Late st Contact Info) Description 08/23/2023 Refill [facility] [address] [place], [place] [phone] Mery Theodore MD [address] [place], [place] [phone] Essential hypertension Social History Tobacco Use Types [...] encounter Miscellaneous Notes * Telephone Encounter - Chiara Aponte LPN - 08/23/2023 8:31 AM EDT Last seen 06/21/23. * Telephone Encounter - Dylon Tsang - 08/23/2023 8:23 AM EDT Tc from pt requesting a refill for chlorthalidone (Hygroton) 25 MG tablet documented in this encounter Plan of Treatment Upcoming Encounters Date Type Department Care Team (Late st Contact Info) Description 07/11/2024 10:00 AM EDT Office Visit [facility] [address] [place] [address] Mery Theodore MD [address] [place] [address] documented as of this encounter Goals Goal Patient Goal Type Associated Problems Recent Progress Patient-Stated? Author Blood Pressure < 140/90 Blood Pressure 128/87( 025 10:19 AM EST) No Aleja Crawley, PharmD Quit using tobacco (cigarettes, smokeless, etc) Tobacco Use No Aleja Crawley PharmD documented as of this encounter Visit Diagnoses Diagnosis Essential hypertension Unspecified essential hypertension documented in this encounter Additional Health Concerns Assessment Noted Time PHQ-9 Depression Total Score: 0 05/31/19 24 2:12 PM EDT documented as of this encounter Care Teams Double Head Machine Operator Relationship Specialty Start Date End Date Mery Theodore MD [address] [place] [address] PCP - General Internal Medicine 04/19/23 Aleja Tang PharmD [address] [place] [address] Pharmacist Internal Medicine 07/19/23 documented as of this encounter
--- OUTSIDE RECORDS SUMMARY | 2024-04-24 14:01 | XMS_ITS | Encounter Summary ---
Author Organization [employer] Address [address] [facility] 7t [place] [address] Care Team Providers Care Reclamation Kettle Tender Name Role Phone Mery Theodore MD Primary Care Provide r Aleja Tang PharmD Unavailable [phone] Reason for Visit * Reason Comments Med Refill Encounter Details Date Type Department Care Team (Late st Contact Info) Description 04/12/[address] [facility] & PEDS [address] [place], [place] [phone] Mery Theodore MD [address] [place] [address] Essential hypertension Social History Tobacco Use Types [...] your housing situation today? I have mila meet 05/31/[address] you li [...] 07/11/2024 10:00 AM EDT Office Visit [facility] [address] [place] [address] Mery Theodore MD [address] [place] [address] documented as of this encounter Goals Goal Patient Goal Type Associated Problems Recent Progress Patient-Stated? Author Blood Pressure < 140/90 Blood Pressure 128/87( 025 10:19 AM EST) No Bernys-Gambl e, Aleja, PharmD Quit using tobacco (cigarettes, smokeless, etc) Tobacco Use No Piers-Gambl e, Aleja, PharmD documented as of this encounter Visit Diagnoses Diagnosis Essential hypertension Unspecified essential hypertension documented in this encounter Additional Health Concerns Assessment Noted Time PHQ-9 Depression Total Score: 0 05/31/19 24 2:12 PM EDT documented as of this encounter Care Teams Reclamation Kettle Tender Relationship Specialty Start Date End Date Mery Theodore MD [address] [place] [phone] PCP - General Internal Medicine 04/19/23 BernysIsa Mcclellandsa, PharmD [address] [place] [address] Pharmacist Internal Medicine 07/19/23 documented as of this encounter
--- OUTSIDE RECORDS SUMMARY | 2024-04-24 14:01 | XMS_ITS | Encounter Summary ---
Author Organization [employer] Address [address] [facility] 7t [place] [address] Care Team Providers Care Fruit Sorter Name Role Phone Mery Theodore MD Primary Care Provide r Aleja Tang PharmD Unavailable [phone]- [phone] Encounter Details Date Type Department Care Team (Latest Contact Info) Description 03/27/2024 Travel Social History Tobacco Use Types Packs/Day Years [...] the past 12 months, has t he [employer], [employer], oil or water [employer] threatened to shut off services in your [...] Description 07/11/2024 10:00 AM EDT Office Visit [facility] [address] [place] [address] Mery Theodore MD [address] [place] [address] documented as of this encounter Goals Goal [...] documented as of this encounter Care Teams Fruit Sorter Relationship Specialty Start Date End Date Mery Theodore MD [address] [place] [address] PCP - General Internal Medicine 04/19/23 BernysAleja Mcclelland, PharmD [address] [place] [phone] Pharmacist Internal Medicine 07/19/23 documented as of this encounter
--- OUTSIDE RECORDS SUMMARY | 2024-04-24 14:01 | XMS_ITS | Encounter Summary ---
Author Organization [employer] Address [address] [facility] 7t [place] [address] Care Team Providers Care Fox Farmer Name Role Phone Mery Theodore MD Primary Care Provide r Aleja Tang PharmD Unavailable [phone] Reason for Referral * Consultation (Routine) - Authorized Specialty Diagnoses / Procedures Referred By Lita t Referred To Contact Cardiology Diagnoses Essential (primary) hypertension Palpitations Mrey Theodore MD [address] [place] [address] Phone: tel: fax: Khanh Robins MD [address] [place] [address] [address] [place] [address] Phone: tel: Referral ID Status Reason Start Date Expiration Date Visits Requested Visits Authorized [id number] Authorized Specialty Services Required 03/27/2024 03/27/2025 1 1 * Consultation (Routine) - Closed Specialty Diagnoses / Procedures Referred By Contac t Referred To Contact Behavioral Health / Psychology Diagnoses Anxiety Mery Theodore MD [address] [place] [address] Phone: tel: fax: Referral ID Status Reason Start Date Expiration Date V isits Requested Visits Authorized [id number] Closed Specialty Services Required 03/27/2024 03/27/2025 1 1 Encounter Details Date Type Department Care Team (Late st Contact Info) Description 03/27/2024 10:00 AM EST Office Visit [facility] [address] [place] [address] Mery Theodore MD [address] [place] [address] Essential (primary) hypertension (Primary Dx); Palpitations; Anxiety; Tobacco dependence syndrome Social History Tobacco Use Types Packs/Day Years [...] AM EDT documented as of this encounter Last Filed Vital Signs Vital Sign Reading Time Taken Comments Blood Pressure 128/87 03/27/2024 10:19 AM EST Pulse 68 03/27/2024 10:19 AM EST Temperature 36.6 ??C (97.8 ??F) 03/27/2024 10:[address] Respiratory Rate 18 03/27/2024 10:19 AM EST Oxygen Saturation - - Inhaled Oxygen Concentration - - Weight 100 kg (221 lb 6.4 oz) 03/27/2024 10:19 A M EST Height 185.4 cm (6' 1 ) 03/27/2024 10:19 AM EST Body Mass Index 29.21 03/27/2024 10:19 AM EST documented in this encounter Progress Notes * Mery Hernandez MD - 03/27/2024 10:00 AM EST SUBJECTIVE: Jj Wilburn is a 49 y.o. year old adult who presents for Follow up . Acute Concerns: Patient reports he will like to stop smoking Patient feels very anxious all the time about his health Patient report persistent palpitations Social History Social History Narrative Not on file Patient Active Problem List Diagnosis Essential (primary) hypertension Tobacco dependence syndrome Colon cancer screening Loud snoring Hypersomnia Chronic hepatitis C without hepatic coma (CMS/HCC) Resistant hypertension Erectile dysfunction White coat syndrome with diagnosis of hypertension Lower abdominal pain Palpitations Anxiety No family history on file. Review of Systems Constitutional: Negative. HENT: Negative. Respiratory: Negative. Cardiovascular: Positive for palpitations. Negative for chest pain and leg swelling. Psychiatric/Behavioral: The patient is nervous/anxious. OBJECTIVE: Vitals: 03/27/24 1019 BP: 128/87 BP Location: Left arm Patient Position: Sitting BP Cuff Size: Large adult Pulse: 68 Resp: 18 Temp: 97.8 ??F (36.6 ??C) TempSrc: Oral Weight: 221 lb 6.4 oz (100 kg) Height: 6' 1 (1.854 m) Physical Exam Constitutional: Appearance: Normal appearance. Cardiovascular: Rate and Rhythm: Normal rate and regular rhythm. Pulmonary: Effort: Pulmonary effort is normal. Breath sounds: Normal breath sounds. Abdominal: General: Abdomen is flat. Palpations: Abdomen is soft. Musculoskeletal: Right lower leg: No edema. Left lower leg: Edema present. Neurological: Mental Status: He is alert. Follow Up: Follow up in about 3 months (around 06/25/2024) for chronic conditions . Current Outpatient Medications on File Prior to Visit Medication Sig Dispense Refill amLODIPine (Norvasc) 10 MG tablet Take 1 tablet (10 mg) by mouth Once per day. 90 tablet 3 amLODIPine-olmesartan (Haylee) 10-20 MG tablet Take 1 tablet by mouth once daily 90 tablet 0 atenolol (Tenormin) 50 MG tablet TAKE 1 TABLET BY MOUTH EVERY DAY FOR HYPERTENSION 90 tablet 3 atorvastatin (Lipitor) 40 MG tablet Take 1 tablet by mouth once daily 90 tablet 0 chlorthalidone (Hygroton) 50 MG tablet TAKE 1 TABLET BY MOUTH EVERY DAY 90 tablet 1 magnesium oxide (Mag-Ox) 250 MG tablet Take 250 mg by mouth Once per day. PURCHASES OTC (Unclear the actual Strength) nicotine (Nicoderm CQ) 14 MG/24HR patch Place 1 patch on the skin 1 (one) time each day at the sametime. 12 patch 0 nicotine (Nicoderm CQ) 7 MG/24HR patch Place 1 patch on the skin 1 (one) time each day at the same time. For 2 weeks 14 patch 0 nicotine polacrilex ([facility] Nicotine) 2 MG gum Use 1 gum every 1 to 2 hours as needed. Do not exceed 5lozenges/6 hours or 20 lozenges/day 100 each 0 olmesartan (Benicar) 20 MG tablet Take 1 tablet (20 mg) by mouth Once per day. 90 tablet 0 omega-3 (Fish Oil) 1000 MG capsule PT PURCHASING OTC sildenafil (Viagra) 100 MG tablet Take 1 tablet (100 mg) by mouth if needed each day for erectile dysfunction. 12 tablet 0 No current facility-administered medications on file prior to visit. Problem List Items Addressed This Visit Essential (primary) hypertension - Primary I advised: - Aerobic exercise to reduce BP. Initial goal of 30 min walk 3-5x/week. Increase as tolerated. - low-sodium diet (goal: <2g/day) and heart healthy diet such as DASH to reduce BP and prevent ASCVD. - Home BP monitoring 1-2 x day with goal of <140/90. - Seek immediate medical attention for chest pain, palpitations, SOB, syncope, or sudden changes inmental status. - Do not change or discontinue current prescriptions without first consulting health care provider Relevant Orders CBC auto differential Comprehensive Metabolic Panel Hemoglobin A1c HIV-1/2 Antigen and Antibodies, Fourth Generation, with Reflexes Hepatitis C Antibody with Reflex to HCV, RNA, Quantitative, Real-Time PCR Lipid Panel, Standard Vitamin D, 25-Hydroxy, Total, Immunoassay TSH with Reflex to Free T4 Referral to Cardiology Palpitations Relevant Orders CBC auto differential Comprehensive Metabolic Panel Hemoglobin A1c HIV-1/2 Antigen and Antibodies, Fourth Generation, with Reflexes Hepatitis C Antibody with Reflex to HCV, RNA, Quantitative, Real-Time PCR Lipid Panel, Standard Vitamin D, 25-Hydroxy, Total, Immunoassay TSH with Reflex to Free T4 Referral to Cardiology Anxiety Counseling done [facility] referral Declines medications for now Relevant Orders Referral to Behavioral Health Tobacco dependence syndrome Relevant Medications nicotine polacrilex (Nicotine Mini) 2 MG lozenge documented in this encounter Miscellaneous Notes * Assessment & Plan Note - Mery Hernandez MD - 03/28/2024 4:48 PM EST Associated Problem(s): Anxiety Counseling done N referral Declines medications for now * Assessment & Plan Note - Mery Hernandez MD - 03/28/2024 4:48 PM EST Associated Problem(s): Essential (primary) hypertension I advised: - Aerobic exercise to reduce BP. Initial goal of 30 min walk 3-5x/week. Increase as tolerated. - low-sodium diet (goal: <2g/day) and heart healthy diet such as DASH to reduce BP and prevent ASCVD. - Home BP monitoring 1-2 x day with goal of <140/90. - Seek immediate medical attention for chest pain, palpitations, SOB, syncope, or sudden changes inmental status. - Do not change or discontinue current prescriptions without first consulting health care provider documented in this encounter Plan of Treatment Upcoming Encounters Date Type Department Care Team (Late st Contact Info) Description 07/11/2024 10:00 AM EDT Office Visit [facility] [address] [place] [address] Mery Theodore MD [address] [place] [address] Scheduled Orders Name Type Priority Associated Diagnoses Orde r Schedule Comprehensive Metabolic Panel Lab Routine Essential (primary) hypertension Palpitations Expected: 03/27/2024 (Approximate), Expires: 03/27/2025 Hemoglobin A1c Lab Routine Essential (primary) hypertension Palpitations Expected: 03/27/2024 (Approximate), Expires: 03/27/2025 HIV-1/2 Antigen and Antibodies, Fourth Generation, with Reflexes Lab Routine Essential (primary) hypertension Palpitations Expected: 03/27/2024 (Approximate), Expires: 03/27/2025 Hepatitis C Antibody with Reflex to HCV, RNA, Quantitative, Real-Time PCR Lab Routine Essential (primary) hypertension Palpitations Expected: 03/27/2024, Expires: 03/27/2025 Lipid Panel, Standard Lab Routine Essential (primary) hypertension Palpitations Expected: 03/27/2024 (Approximate), Expires: 03/27/2025 Vitamin D, 25-Hydroxy, Total, Immunoassay Lab Routine Essential (primary) hypertension Palpitations Expected: 03/27/2024 (Approximate), Expires: 03/27/2025 TSH with Reflex to Free T4 Lab Routine Essential (primary) hypertension Palpitations Expected: 03/27/2024 (Approximate), Expires: 03/27/2025 Scheduled Referrals Name Type Priority Associated Diagnoses Order Schedule Referral to Behavioral Health Outpatient Referral Routine Anxiety Expected: 03/27/2024 (Approximate), Expires: 03/27/2025 Referral to Cardiology Outpatient Referral Routine Essential (primary) hypertension Palpitations Expected: 03/27/2024 (Approximate), Expires: 03/27/2025 documented as of this encounter Goals Goal Patient Goal Type Associated Problems Recent Progress Patient-Stated? Author Blood Pressure < 140/90 Blood Pressure 128/87( 025 10:19 AM EST) No Piers-Gambl e, Aleja, PharmD Quit using tobacco (cigarettes, smokeless, etc) Tobacco Use No Piers-Gambl e, Aleja, Arsh documented as of this encounter Procedures Procedure Name Priority Date/Time Associated Diagnosis Comments CBC WITH AUTO DIFFERENTIAL Routine 04/24/2024 12:50 PM EST Essential (primary) hypertension Palpitations documented in this encounter Results * (ABNORMAL) CBC auto differential (04/24/2024 12:50 PM EST) White Blood Count 6.7 4.8 - 10.8 X10*3/uL [facility] Red Blood Count 3.92(L) 4.60 - 5.80 X10*6/uL [facility] Hemoglobin 15.0 14.0 - 18.0 g/dl [facility] Hematocrit 41.1(L) 42.0 - 52.0 % [facility] Mean Corpuscular Volume 104.8(H) 80.0 - 98.0 fL [facility] Mean Corpuscular Hemoglobin 38.3(H) 27.0 - 33.0 pg [facility] Mean Corpuscular HGB Conc 36.5(H) 31.0 - 36.0 g/dl [facility] Red Cell Distribution Width 14.1 11.0 - 16.0 % [facility] Platelet Count 266 160 - 400 X10*3/uL [facility] Mean Platelet Volume 9.5 9.4 - 12.4 fL [facility] Neutrophils Percent Auto 50.0 45 - 73 % [facility] Imm Gran Pct Auto 0.2 0.0 - 0.4 % [facility] Lymphocytes Percent Auto 31.7 20 - 40 % [facility] Monocytes Percent Auto 10.4 2 - 11 % [facility] Eosinophils Percent Auto 7.4(H) 0 - 4 % [facility] Basophils Percent Auto 0.3 0 - 2 % [facility] NRBC Pct Auto 0.0 0.0 - 0.2 /100WBC [facility] Neutrophils Absolute Auto 3.3 2.0 - 8.3 x10*3/uL [facility] Imm Gran Abs Auto 0.01 0.00 - 0.03 X10*3/uL [facility] Lymphocytes Absolute Auto 2.1 1.2 - 4.9 X10*3/uL [facility] Monocytes Absolute Auto 0.7 0.1 - 1.2 X10*3/uL [facility] Eosinophils Absolute Auto 0.5(H) 0.0 - 0.4 X10*3/uL [facility] Basophils Absolute Auto 0.0 0.0 - 0.2 X10*3/uL [facility] NRBC Abs Auto 0.000 0.0 - 0.012 X10*3/uL [facility] Blood Venous blood specimen / Unknown 04/24/2024 12:50 PM EST 04/24/2024 1:10 PM EST us Mery Hernandez MD LAB BLOOD ORDERABLES Final Result [facility] [address] [place] [address] [phone] documented in this encounter Visit Diagnoses Diagnosis Essential (primary) hypertension- Primary Unspecified essential hypertension Palpitations Anxiety Anxiety state, unspecified Tobacco dependence syndrome Tobacco use disorder documented in this encounter Additional Health Concerns Assessment Noted Time PHQ-9 Depression Total Score: 0 05/31/19 24 2:12 PM EDT documented as of this encounter Care Teams Fox Farmer Relationship Specialty Start Date End Date Mery Theodore MD [address] [place] [address] PCP - General Internal Medicine 04/19/23 Aleja Tang PharmD [address] [place] [address] Pharmacist Internal Medicine 07/19/23 documented as of this encounter
--- OUTSIDE RECORDS SUMMARY | 2024-04-24 14:01 | XMS_ITS | Encounter Summary ---
Author Organization [facility] Address [address] [facility] 7t [place] [address] Care Team Providers Care Television Operator Name Role Phone [facility] Primary Care Provider [phone] Mery Theodore MD Primary Care Provide r Aleja Tang PharmD Unavailable Encounter Details Date Type Department Care Team (Late st Contact Info) Description 05/14/2022 Telephone [facility] [address] [place] [address] [place], [facility] [address] [place] [address] Social History Tobacco Use Types Packs/Day Years [...] 10:00 AM EDT Office Visit [facility] [address] [place] [address] [phone] Mery Theodore MD [address] [place], [place] [phone] documented as of this encounter Visit Diagnoses Not on filedocumented in this encounter Care Teams Television Operator Relationship Specialty Start Date End Date Sylvie Guerrero FNP [address] [place] [address] PCP - General Family Medicine 11/14/21 04/18/23 Mery Theodore MD [address] [place] [address] PCP - General Internal Medicine 04/19/23 Aleja Tang, JorgeD [address] [place] [address] Pharmacist Internal Medicine 07/19/23 documented as of this encounter
--- OUTSIDE RECORDS SUMMARY | 2024-04-24 14:01 | XMS_ITS | Encounter Summary ---
Author Organization [employer] Address [address] [facility] 7t [place] [address] Care Team Providers Care Plastic Maker Name Role Phone Mery Theodore MD Primary Care Provide r Aleja Tang PharmD Unavailable [phone] Reason for Visit * Reason Onset Date Comments Med Refill 04/12/2024 Encounter Details Date Type Department Care Team (Late st Contact Info) Description 04/12/2024 Telephone [facility] [address] [place], [place] [phone] Mery Theodore MD [address] [place], [place] [phone] Med Refill Social History Tobacco Use Types Packs/Day Years [...] encounter Miscellaneous Notes * Telephone Encounter - Stephani Yañez LPN - 04/12/2024 10:06 AM EST pended * Telephone Encounter - Evert Fall - 04/12/2024 9:54 AM EST TC from pt requesting medication refill. Medications needing refill : atenolol (Tenormin) 50 MG tablet To be sent to: [facility]/pharmacy #[id number] documented in this encounter Plan of Treatment Upcoming Encounters Date Type Department Care Team (Late st Contact Info) Description 07/11/2024 10:00 AM EDT Office Visit [facility] [address] [place] [address] Mery Theodore MD [address] [place] [address] documented as of this encounter Goals Goal Patient Goal Type Associated Problems Recent Progress Patient-Stated? Author Blood Pressure < 140/90 Blood Pressure 128/87( 025 10:19 AM EST) No PierAleja Anderson PharmD Quit using tobacco (cigarettes, smokeless, etc) Tobacco Use No Aleja Crawley PharmD documented as of this encounter Visit Diagnoses Not on filedocumented in this encounter Additional Health Concerns Assessment Noted Time PHQ-9 Depression Total Score: 0 05/31/19 24 2:12 PM EDT documented as of this encounter Care Teams Plastic Maker Relationship Specialty Start Date End Date Mery Theodore MD [address] [place] [phone] PCP - General Internal Medicine 04/19/23 Aleja Tang PharmD [address] [place] [phone] Pharmacist Internal Medicine 07/19/23 documented as of this encounter
--- OUTSIDE RECORDS SUMMARY | 2024-04-24 14:01 | XMS_ITS | Encounter Summary ---
Author Organization [employer] Address [address] [facility] [address] [place] [address] Care Team Providers Care Stave Planer Tender Name Role Phone Mery Theodore MD Primary Care Provide r Aleja Tang PharmD Unavailable [phone] Reason for Visit * Reason Onset Date Comments Med Refill 04/12/2024 Encounter Details Date Type Department Care Team (Late st Contact Info) Description 04/12/2024 Refill [facility] [address] [place], [place] [phone] Mery Theodore MD [address] [place], [place] [phone] Erectile dysfunction, unspecified erectile dysfunction type Social History Tobacco Use Types Packs/Day Years [...] Telephone Encounter - Chiara Aponte LPN - 04/12/2024 10:06 AM EST Last seen 03/27/24. * Telephone Encounter - Evert Fall - 04/12/2024 9:55 AM EST TC from pt requesting medication refill. Medications needing refill : sildenafil (Viagra) 100 MG tablet To be sent to: [facility] pharmacy documented in this encounter Plan of Treatment Upcoming Encounters Date Type Department Care Team (Late st Contact Info) Description 07/11/2024 10:00 AM EDT Office Visit [facility] [address] [place] [address] Mery Theodore MD [address] [place] [address] documented as of this encounter Goals Goal Patient Goal Type Associated Problems Recent Progress Patient-Stated? Author Blood Pressure < 140/90 Blood Pressure 128/87( 025 10:19 AM EST) No Aleja Crawley PharmD Quit using tobacco (cigarettes, smokeless, etc) Tobacco Use No Aleja Crawley PharmD documented as of this encounter Visit Diagnoses Diagnosis Erectile dysfunction, unspecified erectile dysfunction type documented in this encounter Additional Health Concerns Assessment Noted Time PHQ-9 Depression Total Score: 0 05/31/19 24 2:12 PM EDT documented as of this encounter Care Teams Stave Planer Tender Relationship Specialty Start Date End Date Mery Theodore MD [address] [place] [address] PCP - General Internal Medicine 04/19/23 Aleja Tang PharmD [address] [place] [address] Pharmacist Internal Medicine 07/19/23 documented as of this encounter
--- OUTSIDE RECORDS SUMMARY | 2024-04-24 14:01 | XMS_ITS | Encounter Summary ---
Author Organization [employer] Address [address] [facility] 7t [place] [address] Care Team Providers Care Bartender Server Name Role Phone [facility] Primary Care Provider [phone] Mery Theodore MD Primary Care Provide r Aleja Tang PharmD Unavailable Reason for Visit * Reason Onset Date Comments Medication Question 09/02/2022 Encounter Details Date Type Department Care Team (Late st Contact Info) Description 09/02/2022 Telephone [facility] MEDICINE [address] [place], [place] [phone] [facility] [address] [place], [place] [phone] Medication Question Social History Tobacco Use Types Packs/Day Years [...] encounter Miscellaneous Notes * Telephone Encounter - Anselmo Calderon - 09/03/2022 1:07 PM EDT Spoke to provider. Pcp sent new script to [facility] pharmacy ,. Pt aware * Telephone Encounter - Dylon Tsang - 09/03/2022 10:49 AM EDT Tc from pt requesting status on script, Tube Cleaner contacted pharmacy , pharmacist stated they did not receive script , Please re fax script. Please contact at [phone] * Telephone Encounter - Janae Lai - 09/02/2022 2:07 PM EDT Tc from pt requesting status on script for chlorthalidone (Hygroton) 25 MG tablet. Tube Cleaner advised request has been sent to PCP. Pt expressed concerns and stated cannot be with out Meds. PCP FACING MACHINE OPERATOR [place] * Telephone Encounter - Jennifer Stein - 09/02/2022 10:54 AM EDT Tc from pt calling to inform went to orange picker machine operator his medication chlorthalidone (Hygroton) 25 MG tablet but was only given 3 pills . Tube Cleaner inform pt that a 90 day script was sent today and health technical writer called pharmacy to see if they received script . Pharmacy informed they have not gotten script and asked tore sent . documented in this encounter Plan of Treatment Upcoming Encounters Date Type Department Care Team (Late st Contact Info) Description 07/11/2024 10:00 AM EDT Office Visit [facility] MEDICINE [address] [place] [address] Mery Theodore MD [address] [place] [address] documented as of this encounter Visit Diagnoses Diagnosis Essential hypertension Unspecified essential hypertension documented in this encounter Care Teams Bartender Server Relationship Specialty Start Date End Date Sylvie Guerrero FNP [address] [place] [address] PCP - General Family Medicine 11/14/21 04/18/23 Mery Theodore MD [address] [place] [address] PCP - General Internal Medicine 04/19/23 Aleja Tang, JorgeD [address] [place] [address] Pharmacist Internal Medicine 07/19/23 documented as of this encounter
--- OUTSIDE RECORDS SUMMARY | 2024-04-24 14:01 | XMS_ITS | Referral Summary ---
Author Organization [facility] Address [address] [place] [address] Care Team Providers Care Microfilm Technician Name Role Phone Nathalie Leroy Primary Care Provider [phone] Allergies No known active allergies Medications amLODIPine [...] provided him additional information about this in [place]), and attempting to quit smoking. I will [...] should be encouraged through diet and exercise. Social History Tobacco Use Types Packs/Day Years [...] 03/05/2021 11:14 AM EST Plan of Treatment Not on file Insurance [facility] Advance Directives Documents on File Type Date Recorded Patient Director Of Student Aid [facility] Proxy 03/05/2021 12:[address] [facility] PROX[facility] Care Teams Microfilm Technician Relationship Specialty Start Date End Date Nathalie Leroy [address] [place] [id number] PCP - General 01/02/21
[2024-04-24 14:46] LABS: Alanine Aminotransferase 12 U/L (0-40); Albumin Level 4.4 g/dL (3.5-5.0); Anion Gap 11 (12-20); Aspartate Amino Transferase 23 U/L (5-37); Bilirubin Direct 0.3 mg/dL (0.0-0.5); Bilirubin Total 1.6 mg/dL (0.0-1.0); Blood Urea Nitrogen 23 mg/dL (9-16); Calcium 9.7 mg/dL (8.4-10.2); Carbon Dioxide 30 mmol/L (22-29); Chloride 102 mmol/L (96-108); Estimated Glomerular Filt Rate > 60; Glucose Random 97 mg/dL (60-115); Potassium 3.9 mmol/L (3.3-5.1); Sodium 139 mmol/L (135-145); TSH reflex Free T4 1.84 uIU/mL (0.32-4.0); Total Protein 7.8 g/dL (6.5-8.0)
[2024-04-24 18:25] LABS: Alkaline Phosphatase 59 U/L (39-117)
[2024-04-25 07:48] LABS: Estimated Average Glucose 105 mg/dL; Hemoglobin A1C 139.7066 umol/L; Hemoglobin A1c % 5.3 % (<6.0); Total Hemoglobin (HGBA1C) 4026.6192 umol/L
[2024-04-25 08:43] LABS: HIV AB/AG Nonreactive (Nonreactive); HIV Num 1 0.09 S/CO (0.00-0.99); ~HepC Num1 15.44 S/CO (0.00-0.79); ~Hepatitis C Antibody Reactive (Nonreactive)
[2024-04-25 20:18] LABS: HCV Log PCR <1.18 NOT DETECTED Log IU/mL (NOT DETECTED); HepC Viral Load <15 NOT DETECTED IU/mL (NOT DETECTED)
== END 2024-04-24 12:45 | disposition home or self-care (01) ==
LOC: HO.HHCL 12:44
PROVIDERS: Family Medicine; Visit Provider Internal Medicine
DX: Z11.4 Encounter for screening for human immunodeficiency virus [HIV] (principal); Z13.1 Encounter for screening for diabetes mellitus; I10 Essential (primary) hypertension; R00.2 Palpitations; E78.5 Hyperlipidemia, unspecified; B18.2 Chronic viral hepatitis C
CPT/HCPCS: 36415; 80053; 82248; 82306; 83036; 84443; 85025; 86803; 87389; 87522

== ENCOUNTER 2024-06-05 11:56 | Outpatient (AMB) | payer OTHER, SELFPAY ==
--- NOTE | 2024-06-05 11:58 | MHC.OFFVIS ---
Vital Signs 06/05/24 12:00 Height 6 ft 3 in Weight 215 lb BMI 26.9 BP 131/83 Blood Pressure Location Lt brachial Position Sitting Respiration 16 Pulse 80 Pulse Source Pulse Oximeter Pulse Oximetry (%) 96 Oxygen Delivery Method Room Air Intake Visit Reasons: Chronic bilateral LB pain Gas Meter Repair Supervisor Required: Yes Gas Meter Repair Supervisor Services: Gas Meter Repair Supervisor Offered & Declined Gas Meter Repair Supervisor Name: Prefers to translate Allergies No Known Allergies Allergy (Verified 06/12/24 15:05) Medication List - Last Reconciled 06/05/24 by Cris Ellison LPN amlodipine 10 mg PO DAILY atenolol 50 mg PO DAILY chlorthalidone 50 mg PO DAILY lidocaine 5% patches topical DAILY magnesium 250 mg PO DAILY olmesartan 20 mg PO DAILY omega-3 fatty acids 500 mg PO DAILY potassium gluconate 550 mg PO DAILY sildenafil (Viagra) 100 mg PO DAILY PRN HPI HPI Chronic bilateral LB pain: Details: History of Present Illness The patient is a 49-year-old male presenting with issues of chronic low back pain. For the past 6 months, there has been axial low back pain of fluctuating severity, recently worsening to 10/10 pain intensity. Pain management initially included [id number] analgesics, but pain severity and associated symptoms such as numbness in the lower extremities and loss of functional capability have significantly impacted the patient?s quality of life. Despite efforts at home physical therapy, formal professionally supervised therapy has not yet been attempted. Pain Description - Onset: 6 months ago - Severity: Up to 10/10, with episodes necessitating acute care - Quality: Associated with numbness in lower limbs, functional impairment - Location: Axial low back - Aggravating Factors: Movement, physical activity - Alleviating Factors: Rest - Impact on Activity: Unable to perform self-care during acute episodes, limitations in work capability Physical Exam - Appears afebrile. - Alert and oriented. - Mood and affect appropriate. - Follows and participates in conversation appropriately. - Respiratory effort is unlabored. - Able to transition from sit to stand unassisted. - Ambulates with bilaterally normal heel strike and toe off. - Able to stand and walk on toes and heels. Pain Management - Affect: Severe pain episodes impacting psychological wellbeing - Analgesia: Ibuprofen, Acetaminophen, Emergency room-administered medication - Adverse Effects: Temporary bladder control issues from pain medication - Activities of Daily Living: Difficult during exacerbations; assistance required for self-care - Aberrant Drug Related Behaviors: None reported [facility] Medical History (Updated 06/05/24 @ 12:41 by Mesfin Milian MD) White coat syndrome with diagnosis of hypertension Erectile dysfunction Resistant hypertension Chronic hepatitis C without hepatic coma Hypersomnia Tobacco dependence syndrome Essential (primary) hypertension Physical Exam Vital Signs: Last Vital Signs Pulse 80 06/05/24 12:00 Resp 16 06/05/24 12:00 BP 131/83 06/05/24 12:00 Pulse Ox 96 06/05/24 12:00 Oxygen Delivery Method Room Air 06/05/24 12:00 BMI result Body Mass Index 26.9 Assessment & Plan Assessment & Plan (1) Low back pain: Code(s): M54.50 - Low back pain, unspecified Category: Medical Plan Plan To address the chronic low back pain presented, an initial plan includes starting formal physical therapy, considering it a requirement before escalating to further diagnostic studies such as MRI, per insurance guidelines. Analgesics like ibuprofen and acetaminophen will continue to be used. Efforts should be directed towards rest and activity modification during severe pain episodes. Follow-up is planned for two months to monitor progress with physical therapy and reassess treatment strategies accordingly. Patient was informed and verbally consented to the use of an ambient scribe for clinic note documentation during this visit. Discussion Notes During the consultation, we discussed that initiating physical therapy is necessary to satisfy insurance prerequisites for more advanced imaging like MRI. The patient was informed of the critical importance of adherence to therapy sessions and was advised to take caution with analgesics due to potential adverse effects. The need for rest and gradual activity was emphasized, and a two-month follow-up was scheduled to evaluate response to therapy and reassess management if pain persists. Patient Instructions - Begin formal physical therapy sessions as prescribed. - Continue taking current pain medications carefully. - Rest during severe pain episodes and minimize movements that exacerbate pain. - Follow up in two months or sooner if symptoms worsen or physical therapy aggravates the condition. - Seek immediate care if there are new symptoms or severe functional decline. Orders: Orders PT Evaluation and Treatment 06/05/24 M54.50 - Low back pain, unspecified Coding Level of Care Code New Pt Level 3 (88910) Diagnoses Low back pain M54.50
[2024-06-05 12:00] VITALS: BP 131/83; PULSE 80; RESP 16; O2SAT 96; BMI 26.9
== END 2024-06-05 12:48 | disposition home or self-care (01) ==
LOC: HO.PMC 11:56
PROVIDERS: PCP Internal Medicine; Referring Provider Emergency Medicine; Visit Provider Internal Medicine
DX: M54.50 Low back pain, unspecified (principal)
CPT/HCPCS: 99203

== ENCOUNTER → 2024-06-05 11:56 | Outpatient (BNVA) | payer OTHER, SELFPAY | PROVIDERS: PCP Internal Medicine; Referring Provider Emergency Medicine; Visit Provider Internal Medicine | DX: M54.50 Low back pain, unspecified (principal) | CPT/HCPCS: 99202 ==

== ENCOUNTER 2024-06-10 10:34 | Outpatient (REF) | payer OTHER, SELFPAY ==
[2024-06-10 11:45] LABS: Alanine Aminotransferase 13 U/L (0-40); Albumin Level 4.3 g/dL (3.5-5.0); Alkaline Phosphatase 62 U/L (39-117); Anion Gap 11 (12-20); Aspartate Amino Transferase 21 U/L (5-37); Bilirubin Direct 0.4 mg/dL (0.0-0.5); Bilirubin Total 1.4 mg/dL (0.0-1.0); Blood Urea Nitrogen 18 mg/dL (9-16); Calcium 9.8 mg/dL (8.4-10.2); Carbon Dioxide 30 mmol/L (22-29); Chloride 102 mmol/L (96-108); Cholesterol 162 mg/dL (<200); Estimated Glomerular Filt Rate > 60; Glucose Random 98 mg/dL (60-115); HDL Cholesterol 26 mg/dL (>40); LDL Cholesterol Calculated 114 mg/dL (<100); Potassium 3.6 mmol/L (3.3-5.1); Sodium 139 mmol/L (135-145); Triglycerides 114 mg/dL (<150)
[2024-06-10 11:50] LABS: Appearance Urine Clear; Color Urine Yellow; Glucose Urine UA Negative (Negative); Leukocyte Esterase Urine Negative (Negative); Nitrite Urine Negative (Negative); PH 6.5 (5.0-9.0); Urine Blood Negative (Negative); Urine Ketones Negative (Negative); Urine Protein Negative (Neg-Trace)
== END 2024-06-10 10:35 | disposition home or self-care (01) ==
LOC: HO.LAB 10:34
PROVIDERS: PCP Internal Medicine; Visit Provider Internal Medicine Hypertension Specialist
DX: I1A.0 Resistant hypertension (principal); E78.5 Hyperlipidemia, unspecified; B18.2 Chronic viral hepatitis C
CPT/HCPCS: 36415; 80048; 80061; 80076; 81003

== ENCOUNTER 2024-06-12 14:47 | Outpatient (AMB) | payer OTHER, SELFPAY ==
[2024-06-12 14:52] VITALS: BP 118/76; PULSE 78; O2SAT 98; BMI 27.2
--- NOTE | 2024-06-12 14:52 | HO.NEPHOV ---
Vital Signs 06/12/24 14:52 Height 6 ft 3 in Weight 218 lb BMI 27.2 BP 118/76 Blood Pressure Location Rt brachial Position Sitting Pulse 78 Pulse Source Pulse Oximeter Pulse Oximetry (%) 98 Oxygen Delivery Method Room Air Intake Visit Reasons: 4 mo fu/ Conf Tube Splicer Required: Yes Tube Splicer Name: Rachele [id number] Accompanied by: Self / Same As Patient Allergies No Known Allergies Allergy (Verified 06/12/24 15:05) Medication List - Last Reconciled 06/12/24 by Chaitanya Srinivasan MD amlodipine 10 mg PO DAILY atenolol 50 mg PO DAILY chlorthalidone 50 mg PO DAILY lidocaine 5% patches topical DAILY magnesium 250 mg PO DAILY olmesartan 20 mg PO DAILY omega-3 fatty acids 500 mg PO DAILY potassium gluconate 550 mg PO DAILY sildenafil (Viagra) 100 mg PO DAILY PRN HPI Comments Details: 48 y/o male with a medical history of resistant HTN, erectile dysfunction, chronic hep C, tobacco use, loud snoring/hypersomnia (sleep studies pending). 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 smokin/2 pack cigarettes daily, 30 years alcohol: very little, drank more heavily in the past. Every day was drinking 1 liter each day or so. family hx: Not that he knows of medications: amlodipine 10mg daily, atenolol 50mg daily, chlorthalidone 50mg daily, olmesartan potassium gluconate 550mh daily. Providers: PCP: Dr Mery Hernandez at [facility] Specialists: he is not sure Imaging: none Creatinine, GFR: 09/27/23 creatinine 0.89, GFR >60 Urine: none on file diet, salt: does not avoid salt sugars: A1c 5.2 in May 2023 NSIADs/OTC medications: none Edema: denies urinary sx: none- denies flank pain, dysuria, blood in urine, difficulty emptying bladder joint pain: reports chronic low back pain, lots of heavy lifting at work reports pain under his belly button for three months now that occurs each time he has a bowel movement reports currently getting treatment for hep C at [facility], reports he has discussed with them and with PCP pain does not occur with urination also notes shortness of breath for 3-4 months, chest tightness with wheezing, continues to smoke, he is working on cutting down 02/14/24 Doing well. Accompanied by his No new complaints [facility] Medical History (Updated 06/05/24 @ 12:41 by Mesfin Milian MD) White coat syndrome with diagnosis of hypertension Erectile dysfunction Resistant hypertension Chronic hepatitis C without hepatic coma Hypersomnia Tobacco dependence syndrome Essential (primary) hypertension Physical Exam Vital Signs: Last Vital Signs Pulse 78 06/12/24 14:52 BP 118/76 06/12/24 14:52 Pulse Ox 98 06/12/24 14:52 Oxygen Delivery Method Room Air 06/12/24 14:52 BMI result Body Mass Index 27.2 Comfortable Neck supple no JVD. Lungs entry equal no rales. Heart S1-S2 heard no gallop or rub. Abdomen soft nontender. Neuro alert awake oriented. No asterixis. Extremities no edema. Results Reviewed Nephrology Results: Hgb 15.0 g/dl (14.0-18.0) 04/24/24 WBC 6.7 X10*3/uL (4.8-10.8) 04/24/24 Plt Count 266 X10*3/uL (160-400) 04/24/24 Sodium 139 mmol/L (135-145) 06/10/24 Potassium 3.6 mmol/L (3.3-5.1) 06/10/24 Chloride 102 mmol/L (96-108) 06/10/24 Carbon Dioxide 30 mmol/L (22-29) H 06/10/24 BUN 18 mg/dL (9-16) H 06/10/24 Creatinine 1.02 mg/dL (0.5-1.4) 06/10/24 Calcium 9.8 mg/dL (8.4-10.2) 06/10/24 Urine Protein Negative mg/dL (Neg-Trace) 06/10/24 Assessment & Plan Assessment & Plan (1) Resistant hypertension: Code(s): I1A.0 - Resistant hypertension Category: Medical (2) Chronic hepatitis C without hepatic coma: Code(s): B18.2 - Chronic viral hepatitis C Plan Blood pressure - better controlled advised continue current blood pressure medication regimen, should monitor blood pressure at home if possible advised smoking cessation, weight loss, minimize salt, continue to avoid alcohol h/o hepatitis C, treated Ua is bland No protienuria Renal function is NORMAL Coding Level of Care Code Est Pt Level 3 (68358) Diagnoses Resistant hypertension I1A.0 Chronic hepatitis C without hepatic coma B18.2
--- OUTSIDE RECORDS SUMMARY | 2024-06-12 17:39 | XMS_ITS | Encounter Summary ---
Author Organization [employer] Address [address] [facility] 7t [place] [address] Care Team Providers Care Ear Pull Machine Operator Name Role Phone Sylvie Guerrero [facility] Primary Care Provider [phone] Mery Theodore MD Primary Care Provide r Aleja Tang PharmD Unavailable Reason for Visit * Reason Comments Med Refill Encounter Details Date Type Department Care Team (Late st Contact Info) Description 02/27/2023 Refill [facility] [address] [place], [place] [phone] [facility] [address] [place], [place] [phone] Essential hypertension Social History Tobacco Use Types [...] Description 07/11/2024 10:00 AM EDT Office Visit [facility] [address] [place], [place] [phone] Mery Theodore MD [address] [place], [place] [phone] 07/17/2024 2:00 PM EDT Office Visit [facility] [address] [place] [address] Allie Driver MD [address] [place] [phone] documented as of this encounter Visit Diagnoses Diagnosis Essential hypertension Unspecified essential hypertension documented in this encounter Care Teams Ear Pull Machine Operator Relationship Specialty Start Date End Date [facility], [facility] [address] [place] [phone] PCP - General Family Medicine 11/14/21 04/18/23 Mery Theodore MD [address] [place] [phone] PCP - General Internal Medicine 04/19/23 Aleja Tang, JorgeD [address] [place] [phone] Pharmacist Internal Medicine 07/19/23 documented as of this encounter
--- OUTSIDE RECORDS SUMMARY | 2024-06-12 17:39 | XMS_ITS | Encounter Summary ---
Author Organization [employer] Address [address] [facility] 7t [place] [address] Care Team Providers Care Concept Artist Name Role Phone Mery Theodore MD Primary Care Provide r Aleja Tang PharmD Unavailable [phone] Encounter Details Date Type Department Care Team (Late st Contact Info) Description 06/10/2024 Orders Only [facility] [address] [place], [place] [phone] Allie Driver MD [address] [place] [address] Social History Tobacco Use Types Packs/Day Years [...] your housing situation today? I have mila sing 05/31/[address] you li [...] 07/11/2024 10:00 AM EDT Office Visit [facility] [address] [place] [phone] Mery Theodore MD [address] [place] [phone] 07/17/2024 2:00 PM EDT Office Visit [facility] [address] [place] [phone] Allie Driver MD [address] [place] [phone] documented as of this encounter Goals Goal Patient Goal Type Associated Problems Recent Progress Patient-Stated? Author Blood Pressure < 140/90 Blood Pressure 144/95( 025 11:29 AM EST) No Piers-Gambl e, Aleja, PharmD Quit using tobacco (cigarettes, smokeless, etc) Tobacco Use No Piers-Gambl e, Aleja, PharmD documented as of this encounter Procedures Procedure Name Priority Date/Time Associated Diagnosis Comments HEPATIC FUNCTION PANEL Routine 06/10/2024 10:57 AM EDT BASIC METABOLIC PANEL Routine 06/10/2024 10:57 AM EDT URINALYSIS WITH REFLEX TO MICROSCOPIC Routine 06/10/2024 10:55 AM EDT documented in this encounter Results * (ABNORMAL) Basic Metabolic Panel (06/10/2024 10:57 AM EDT) Pathologist [facility] Sodium 139 135 - 145 mmol/L [facility] Potassium 3.6 3.3 - 5.1 mmol/L [facility] Chloride 102 96 - 108 mmol/L [facility] Carbon Dioxide 30(H) 22 - 29 mmol/L [facility] Anion Gap 11(L) 12 - 20 [facility] Urea Nitrogen (BUN) 18(H) 9 - 16 mg/dL [facility] Creatinine, Serum 1.02 0.5 - 1.4 mg/dL [facility] Estimated Glomerular Filt Rate >60 [facility] Comment:Chronic Kidney Disea se: Estimated GFR < 60 mL/min/[id number] Kidney Disease: Estimated GFR < 15 mL/min/1.73m2 Glucose 98 60 - 115 mg/dL [facility] Calcium 9.8 8.4 - 10.2 mg/dL [facility] 06/10/2024 10:5 7 AM EDT 06/10/2024 10:57 AM EDT us Generic External Data Provider LAB BLOOD ORDERAB LES Final Result Performing Organization Address City/State/[facility] Co de Phone Number [facility] [address] [place] [phone] * (ABNORMAL) Hepatic Function Panel (06/10/2024 10:57 AM EDT) Bilirubin, Total 1.4(H) 0.0 - 1.0 mg/dL [facility] Bilirubin, Direct 0.4 0.0 - 0.5 mg/dL [facility] Aspartate Amino Transferase 21 5 - 37 U/L [facility] Alanine Aminotransferase 13 0 - 40 U/L [facility] Total Protein 8.0 6.5 - 8.0 g/dL [facility] Albumin Level 4.3 3.5 - 5.0 g/dL [facility] Alkaline Phosphatase 62 39 - 117 U/L [facility] 06/10/2024 10:5 7 AM EDT 06/10/2024 10:57 AM EDT Allie Driver MD LAB BLOOD ORDERABLES Final R esult Performing Organization Address [facility] Co de Phone Number [facility] [address] [place] [address] [phone] * Urinalysis with Reflex to Microscopic (06/10/2024 10:55 AM EDT) Color Urine Yellow [facility] Appearance Urine Clear [facility] PH 6.5 5.0 - 9.0 [facility] Glucose Urine UA Negative Negative mg/dL [facility] Urine Blood Negative Negative [facility] Specific [place] - Urine 1.020 1.005 - 1.025 [facility] Urine Protein Negative Neg-Trace mg/dL [facility] Urine Ketones Negative Negative mg/dL [facility] Nitrite Urine Negative Negative [facility] Leukocyte Esterase Urine Negative Negative [facility] 06/10/2024 10:5 5 AM EDT 06/10/2024 11:15 AM EDT us Generic External Data Provider LAB URINE ORDERAB LES Final Result Performing Organization Address [facility] de Phone Number [facility] [address] [place] [phone] documented in this encounter Visit Diagnoses Not on filedocumented in this encounter Additional Health Concerns Assessment Noted Time PHQ-9 Depression Total Score: 0 05/31/19 24 2:12 PM EDT documented as of this encounter Care Teams Concept Artist Relationship Specialty Start Date End Date Mery Theodore MD [address] [place] [phone] PCP - General Internal Medicine 04/19/23 Aleja Tang, Arsh [address] [place] [phone] Pharmacist Internal Medicine 07/19/23 documented as of this encounter
--- OUTSIDE RECORDS SUMMARY | 2024-06-12 17:39 | XMS_ITS | Encounter Summary ---
Author Organization [employer] Address [address] [facility] [address]t [place] [address] Care Team Providers Care International Tax Manager Name Role Phone [facility] Primary Care Provider [phone] Mery Theodore MD Primary Care Provide r Aleja Tang PharmD Unavailable Reason for Visit * Reason Onset Date Comments Medication Question 09/02/2022 Encounter Details Date Type Department Care Team (Late st Contact Info) Description 09/02/2022 Telephone [facility] [address] [place], [place] [phone] [facility] [address] [place], [place] [phone] Medication Question Social History Tobacco Use Types [...] to provider. Pcp sent new script to [facility] pharmacy ,. Pt aware * Telephone Encounter - Dylon Tsang - 09/03/2022 10:49 AM EDT Tc from pt requesting status on script, Radial Drill Press Set Up Operator contacted pharmacy , pharmacist stated they did not receive script , Please re fax script. Please contact at [phone] * Telephone Encounter - Janae Lai - 09/02/2022 2:07 PM EDT Tc from pt requesting status on script for chlorthalidone (Hygroton) 25 MG tablet. Radial Drill Press Set Up Operator advised request has been sent to PCP. Pt expressed concerns and stated cannot be with out Meds. PCP [facility] * Telephone Encounter - Jennifer Stein - 09/02/2022 10:54 AM EDT Tc from pt calling to inform went to picker operator his medication chlorthalidone (Hygroton) 25 MG tablet but was only given 3 pills . Radial Drill Press Set Up Operator inform pt that a 90 day script was sent today and abstract writer called pharmacy to see if they received script . Pharmacy informed they have not gotten script and asked tore sent . documented in this encounter Plan of Treatment Upcoming Encounters Date Type Department Care Team (Late st Contact Info) Description 07/11/2024 10:00 AM EDT Office Visit [facility] [address] [place] [phone] Mery Theodore MD [address] [place] [address] 07/17/2024 2:00 PM EDT Office Visit [facility] [address] [place] [phone] Allie Driver MD [address] [place] [address] documented as of this encounter Visit Diagnoses Diagnosis Essential hypertension Unspecified essential hypertension documented in this encounter Care Teams International Tax Manager Relationship Specialty Start Date End Date Sylvie Guerrero FNP [address] [place] [address] PCP - General Family Medicine 11/14/21 04/18/23 Mery Theodore MD [address] [place] [phone] PCP - General Internal Medicine 04/19/23 Aleja Tang, JorgeD [address] [place] [phone] Pharmacist Internal Medicine 07/19/23 documented as of this encounter
--- OUTSIDE RECORDS SUMMARY | 2024-06-12 17:39 | XMS_ITS | Encounter Summary ---
Author Organization [email or web address] Address [address] [facility] 7t [place] [address] Care Team Providers Care Software Design Manager Name Role Phone Mery Theodore MD Primary Care Provide r Aleja Tang PharmD Unavailable [phone] Reason for Referral * Consultation (Routine) - Authorized Specialty Diagnoses / Procedures Referred By Contac t Referred To Contact Pain Medicine Diagnoses Chronic bilateral low back pain without sciatica Angel Vee MD [address] [place] [address] Phone: tel: fax: [address] Phone: tel: fax: Referral ID Status Reason Start Date Expiration Date Visits Requested Visits Authorized [id number] Authorized Specialty Services Required 05/19/2024 05/19/2025 1 1 Reason for Visit * Reason Comments Back Pain Encounter Details Date Type Department Care Team (Late st Contact Info) Description 05/19/2024 11:20 AM EST Office Visit [facility] [address] [place] [address] [phone] Angel Vee MD [address] [place] [address] [phone] Chronic bilateral low back pain without sciatica (Primary Dx); Elevated blood pressure reading in office without diagnosis of hypertension Social History Tobacco Use Types Packs/Day [...] Sign Reading Time Taken Comments Blood Pressure 144/95 05/19/2024 11:29 AM EST Pulse 78 05/19/2024 11:29 AM EST Temperature 36.2 ??C (97.1 ??F) 05/19/2024 11:[address] Respiratory Rate 20 05/19/2024 11:29 AM EST Oxygen Saturation 99% 05/19/2024 11:29 AM EST Inhaled Oxygen Concentration - - Weight 100 kg (220 lb 6.4 oz) 05/19/2024 11:29 A M EST Height 185.4 cm (6' 1 ) 05/19/2024 11:29 AM EST Body Mass Index 29.08 05/19/2024 11:29 AM EST documented in this encounter Progress Notes * Angel Vee MD - 05/19/2024 11:20 AM EST Subjective Patient ID: Jj Wilburn is a 49 y.o. adult. Department Supervisor: CASIE Gardner was seen yesterday at [facility] ED for worsening chronic lower back pain . Patient stated that he has had 6-month history of pain across the lower back that worsened over the past week. Distant history of IVDU over 20 years ago with no recent use . X-rays of lumbar spine read as minimal degenerative changes at L1-L2 including mild to space narrowing and endplate sclerosis. Clinical impression: Acute bilateral low back pain without sciatica. He was given Tylenol Toradol 30 mg IM and Flexeril in the ED. Prescribed Flexeril. Jj came to [facility] today because of persistent LBP, worse with changes in position. Pain worsened several days ago after lifting luggage when he returned from [place]. Denies fever, chills, abd. pain, urinary sx, bowel or bladder dysfunction, saddle anesthesia, extremity weakness or numbness, or radiation of pain. Flexeril helps but causes drowsiness. Toradol injection helped transiently. Not taking NSAIDS or Tylenol. Lives with and 3 children out of 6. 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 Smokers 5 cigarettes/day. Has NBRT Patient Active Problem List Diagnosis Essential (primary) hypertension Tobacco dependence syndrome Colon cancer screening Loud snoring Hypersomnia Chronic hepatitis C without hepatic coma (CMS/HCC) Resistant hypertension Erectile dysfunction White coat syndrome with diagnosis of hypertension Lower abdominal pain Palpitations Anxiety The following portions of the chart were reviewed this encounter and updated as appropriate: Tobacco Allergies Meds Problems Med Hx Surg Hx Fam Hx Review of Systems Constitutional: Negative for fever. Respiratory: Negative for shortness of breath. Cardiovascular: Negative for chest pain. Gastrointestinal: Negative for abdominal pain. Musculoskeletal: Positive for back pain. Skin: Negative for rash. Neurological: Negative for headaches. Objective Physical Exam Constitutional: Appearance: Normal appearance. HENT: Nose: Nose normal. Mouth/Throat: Mouth: Mucous membranes are moist. Eyes: Pupils: Pupils are equal, round, and reactive to light. Comments: Bilateral pterygium Cardiovascular: Rate and Rhythm: Normal rate and regular rhythm. Heart sounds: No murmur heard. Pulmonary: Effort: Pulmonary effort is normal. Breath sounds: Normal breath sounds. Musculoskeletal: General: Normal range of motion. Cervical back: No tenderness. Comments: Mild tenderness across lower back. Skin: Findings: No rash. Neurological: Mental Status: He is alert. Sensory: Sensation is intact. Motor: Motor function is intact. Gait: Gait is intact. Psychiatric: Mood and Affect: Mood normal. Behavior: Behavior normal. Procedures Assessment/Plan Diagnoses and all orders for this visit: Chronic bilateral low back pain without sciatica Prescribed lidocaine patches, acetaminophen, ibuprofen, refilled Flexeril. Given Toradol 30 mg IM in walk-in clinic. Given work note. Referred to pain management. - ketorolac (Toradol) injection 30 mg Elevated blood pressure reading in office without diagnosis of hypertension States that BP is usually elevated when he comes to the office, but home BP readings are in normal range, e.g. systolic in 120s. Other orders - acetaminophen (Tylenol) 500 MG tablet; Take 2 tablets (1,000 mg) by mouth every 6 (six) hours if needed for moderate pain or fever for up to 25 doses. - ibuprofen 400 MG tablet; Take 1 tablet (400 mg) by mouth every 6 (six) hours if needed for moderate pain or fever for up to 30 doses. - lidocaine (Lidoderm) 5 % patch; Apply 1 patch topically Once per day. Remove & discard patch within 12 hours or as directed by MD. - cyclobenzaprine (Flexeril) 10 MG tablet; Take 1 tablet (10 mg) by mouth every 8 (eight) hours if needed for muscle spasms. documented in this encounter Plan of Treatment Upcoming Encounters Date Type Department Care Team (Late st Contact Info) Description 07/11/2024 10:00 AM EDT Office Visit [facility] [address] [place] [address] Mery Theodore MD [address] [place] [address] 07/17/2024 2:00 PM EDT Office Visit [facility] [address] [place] [address] Allie Driver MD [address] [place] [address] Scheduled Referrals Name Type Priority Associated Diagnoses Orde r Schedule Referral to Pain Medicine Outpatient Referral Routine Chronic bilateral low back pain without sciatica Expected: 05/19/2024 (Approximate), Expires: 05/19/2025 documented as of this encounter Goals Goal Patient Goal Type Associated Problems Recent Progress Patient-Stated? Author Blood Pressure < 140/90 Blood Pressure 144/95( 025 11:29 AM EST) No Aleja Crawley PharmD Quit using tobacco (cigarettes, smokeless, etc) Tobacco Use No Aleja Crawley PharmD documented as of this encounter Visit Diagnoses Diagnosis Chronic bilateral low back pain without sciatica- Primary Elevated blood pressure reading in office without diagnosis of hypertension documented in this encounter Administered Medications Inactive Administered Medications - up to 3 most recent administrations Medication Order MAR Action Action Date Dose Rate Site ketorolac (Toradol) injection 30 mg 30 mg, Intramuscular, Once, On Wed05/19/24 at 1230, For 1 doseIndications:Chronic bilateral low back pain without sciatica Given 05/19/2024 12:30 PM EST 30 mg Right Deltoid documented in this encounter Additional Health Concerns Assessment Noted Time PHQ-9 Depression Total Score: 0 05/31/19 24 2:12 PM EDT documented as of this encounter Care Teams Software Design Manager Relationship Specialty Start Date End Date Mery Theodore MD [address] [place] [phone] PCP - General Internal Medicine 04/19/23 Aleja Tang PharmD [address] [place] [phone] Pharmacist Internal Medicine 07/19/23 documented as of this encounter
--- OUTSIDE RECORDS SUMMARY | 2024-06-12 17:39 | XMS_ITS | Encounter Summary ---
Author Organization [employer] Address [address] [facility] 7t [place] [address] Care Team Providers Care Automated Weaver Name Role Phone Sylvie Guerrero BARREL REPAIRER Primary Care Provider [phone] Mery Theodore MD Primary Care Provide r Aleja Tang PharmD Unavailable [phone] Encounter Details Date Type Department Care Team (Late Contact Info) Description 06/03/2022 Orders Only [facility] [address] [place] [address] Chiara Aponte LPN Social History Tobacco Use [...] Encounters Date Type Department Care Team (Late Contact Info) Description 07/11/2024 10:00 AM EDT Office Visit [facility] [address] [place] [address] [phone] Mery Theodore MD [address] [place] [phone] 07/17/2024 2:00 PM EDT Office Visit [facility] [address] [place] [address] [phone] Allie Driver MD [address] [place] [phone] documented as of this encounter Visit Diagnoses Not on filedocumented in this encounter Care Teams Automated Weaver Relationship Specialty Start Date End Date Sylvie Guerrero FNP [address] [place] [address] PCP - General Family Medicine 11/14/21 04/18/23 Mery Theodore MD [address] [place] [address] [phone] PCP - General Internal Medicine 04/19/23 Aleja Tang, PharmD [address] [place] [phone] Pharmacist Internal Medicine 07/19/23 documented as of this encounter
--- OUTSIDE RECORDS SUMMARY | 2024-06-12 17:39 | XMS_ITS | Encounter Summary ---
Author Organization [employer] Address 75 [facility] 7t [place] [address] Care Team Providers Care Store Warehouse Associate Name Role Phone Mery Theodore MD Primary Care Provide r Aleja Tang PharmD Unavailable [phone] Reason for Visit * Reason Onset Date Comments Med Refill 05/16/2024 Encounter Details Date Type Department Care Team (Late st Contact Info) Description 05/16/2024 Telephone [facility] [address] [place], [place] [phone] Mery Theodore MD [address] [place], [place] [phone] Med Refill Social History Tobacco Use Types [...] Telephone Encounter - Stephani Yañez LPN - 05/16/2024 12:51 PM EST Patient should have refill left * Telephone Encounter - Divya Salas - 05/16/2024 11:41 AM EST TC from pt requesting medication refill. Medications needing refill : chlorthalidone (Hygroton) 50 MG tablet To be sent to: [facility]/pharmacy #[id number] - [place], [place] - [address] [facility] documented in this encounter Plan of Treatment Upcoming Encounters Date Type Department Care Team (Late st Contact Info) Description 07/11/2024 10:00 AM EDT Office Visit [facility] [address] [place] [address] [phone] Mery Theodore MD [address] [place] [address] 07/17/2024 2:00 PM EDT Office Visit [facility] [address] [place] [phone] Allie Driver MD [address] [place] [address] documented as of this encounter Goals Goal [...] documented as of this encounter Care Teams Store Warehouse Associate Relationship Specialty Start Date End Date Mery Theodore MD [address] [place] [address] PCP - General Internal Medicine 04/19/23 Aleja Tang, PharmD [address] [place] [address] Pharmacist Internal Medicine 07/19/23 documented as of this encounter
--- OUTSIDE RECORDS SUMMARY | 2024-06-12 17:39 | XMS_ITS | Encounter Summary ---
Author Organization [employer] Address [address] [facility] 7t [place] [address] Care Team Providers Care Platform Consultant Name Role Phone Mery Theodore MD Primary Care Provide r Aleja Tang PharmD Unavailable [phone] Reason for Visit * Reason Onset Date Comments ER Follow-up 05/19/2024 Encounter Details Date Type Department Care Team (Late st Contact Info) Description 05/19/2024 Telephone [facility] [address] [place], [place] [phone] Mery Theodore MD [address] [place], [place] [phone] ER Follow-up Social History Tobacco Use Types Packs/Day Years [...] your housing situation today? I have mila sdouza 05/31/[address] you li [...] encounter Miscellaneous Notes * Telephone Encounter - Edelmira Stokes RN - 05/19/2024 9:13 AM EST Called pt. Via Giving Assistant diesel maintenance technician [phone] Faustino. Pt. speaks Scottish. Called back. Pt states that pt. Has lower back pain x 1 week. Yesterday pt. Could not stand and pt. brought him to [facility] in [place]. They did Xrays and no fracture. ED referred pt. To see PCP and get orders for MRI. Pt. Did receive an injection in his back yesterday at ED . Pt. Currently cannot stand without help from . states that pt. Never shows pain so he is hurting . No known injury fromlifting and no falls. No pain with urination. No blood in urine. Notes from ED visit in pt. Chart. Protocol Used: Back Pain (Adult) Protocol-Based Disposition: See in Office or Video Visit Today at 1130am. Video visit offer not recorded Positive Triage Question: * Severe back pain (e.g., excruciating, unable to do any normal activities) and not improved after pain medicine and Care Advice * All higher-acuity triage questions were negative Care Advice Discussed: * Cold or Heat * Telephone Encounter - Louie Abdul - 05/19/2024 9:08 AM EST Patient calling to report ED visit on : Date: 05/18/24 Hospital: [facility] Seen for: Back Pain Symptomatic Yes *if yes message should go to Triage Patient advised will forward to team nurse for follow up Contact pt Spouse at [phone] documented in this encounter Plan of Treatment Upcoming Encounters Date Type Department Care Team (Late st Contact Info) Description 07/11/2024 10:00 AM EDT Office Visit [facility] [address] [place] [phone] Mery Theodore MD [address] [place] [phone] 07/17/2024 2:00 PM EDT Office Visit [facility] [address] [place] [phone] Allie Driver MD [address] [place] [phone] documented as of this encounter Goals Goal [...] documented as of this encounter Care Teams Platform Consultant Relationship Specialty Start Date End Date Mery Theodore MD [address] [place] [phone] PCP - General Internal Medicine 04/19/23 BernysIsa Mcclellandsa, PharmD [address] [place] [phone] Pharmacist Internal Medicine 07/19/23 documented as of this encounter
--- OUTSIDE RECORDS SUMMARY | 2024-06-12 17:39 | XMS_ITS | Clinical Summary ---
Author Organization [facility] Address [address] [place] [address] Care Team Providers Care Distribution Technician Name Role Phone Nathalie Leroy Primary Care Provider [phone] Allergies No known active allergies Medications amLODIPine [...] provided him additional information about this in Icelandic), and attempting to quit smoking. I will [...] 1976 Hepatitis C Screening 1976 Sigmoidoscopy 1976 Hepatitis B Vaccines (1 of 3 - 19+ 3-dose series) 12/21 Pneumococcal Vaccine: Pediat melida (0-5 Years) and At-Risk Patients (6-50 Years) (1 of 2 - PCV) 01/11/1995 DTaP,Tdap,and Td Vaccines (1 - Tdap) 01/11/1998 Basic Metabolic Panel 11/20/2021 11/20/2020 COVID-19 Vaccine (1 - 2023-25 season) 2023 Influenza Vaccine (#1) 2023 Alcohol/Substance Use Screening 03/22/2024 Depression Screening and Follow-Up 03/22/2024 Social Drivers of Health Annual Screening 03/22/2024 RSV Vaccine (60+ years old a nd patients) (1 - 1-dose 75+ series) 01/11/2051 Insurance [address] [place], [place] [id number] [place] [address] Advance Directives Documents on File Type Date Recorded Patient Nuclear Process Engineer Expl anation Health Care Proxy 03/05/2021 12:15 PM [facility] CARE PROXY Care Teams Distribution Technician Relationship Specialty Start Date End Date Nathalie Leroy [address] [place] [phone] PCP - General 01/02/21
--- OUTSIDE RECORDS SUMMARY | 2024-06-12 17:39 | XMS_ITS | Referral Summary ---
Author Organization [facility] Address [address] [place] [address] Care Team Providers Care Electro Mechanical Assembler Name Role Phone Nathalie Leroy Primary Care Provider [phone] Allergies No known active allergies Medications amLODIPine [...] provided him additional information about this in Tuvaluan), and attempting to quit smoking. I will [...] Plan of Treatment Not on file Insurance [facility] Advance Directives Documents on File Type Date Recorded Patient Fuel Cell Builder Expl [facility] Care Proxy 03/05/2021 12:15 PM [facility] CARE PROXY Care Teams Electro Mechanical Assembler Relationship Specialty Start Date End Date Nathalie Leroy [address] [place] [phone] PCP - General 01/02/21
--- OUTSIDE RECORDS SUMMARY | 2024-06-12 17:39 | XMS_ITS | Encounter Summary ---
Author Organization [employer] Address [address] [facility] 7t [place] [address] Care Team Providers Care Virtual Assistant Name Role Phone Yolanda [facility] Primary Care Provider [phone] Mery Theodore MD Primary Care Provide r Aleja Tang PharmD Unavailable Encounter Details Date Type Department Care Team (Late st Contact Info) Description 05/14/[address] [address] [facility] [address] [place] [address] Social History Tobacco Use Types Packs/Day Years [...] Description 07/11/2024 10:00 AM EDT Office Visit [address] [phone] Mery Theodore MD [address] [place], [place] [phone] 07/17/2024 2:00 PM EDT Office Visit [address] [place] [address] Allie Driver MD [address] [place], [place] [phone] documented as of this encounter Visit Diagnoses Not on filedocumented in this encounter Care Teams Virtual Assistant Relationship Specialty Start Date End Date [facility] [address] [place], [place] [phone] PCP - General Family Medicine 11/14/21 04/18/23 Mery Theodore MD [address] [place] [address] [phone] PCP - General Internal Medicine 04/19/23 Aleja Tang, Arsh [address] [place] [address] [phone] Pharmacist Internal Medicine 07/19/23 documented as of this encounter
--- OUTSIDE RECORDS SUMMARY | 2024-06-12 17:40 | XMS_ITS | Encounter Summary ---
Author Organization [employer] Address [address] [facility] 7t [place] [address] Care Team Providers Care Restaurant Worker Name Role Phone Mery Theodore MD Primary Care Provide r Aleja Tang PharmD Unavailable [phone] Reason for Visit * Reason Onset Date Comments Med Refill 06/08/2024 Encounter Details Date Type Department Care Team (Late st Contact Info) Description 06/08/2024 Telephone [facility] [address] [place], [place] [phone] Mery Theodore MD [address] [place], [place] [phone] Med Refill Social History Tobacco Use Types [...] Telephone Encounter - Chiara Aponte LPN - 06/08/2024 9:43 AM EDT Medication pended to PCP. * Telephone Encounter - Louie Abdul - 06/08/2024 9:30 AM EDT TC from pt requesting medication refill. Medications needing refill : sildenafil (Viagra) 100 MG tablet To be sent to: [facility]/pharmacy #[id number] - [place], [place] - [address] [facility] documented in this encounter Plan of Treatment Upcoming Encounters Date Type Department Care Team (Late st Contact Info) Description 07/11/2024 10:00 AM EDT Office Visit [facility] [address] [place] [address] [phone] Mery Theodore MD [address] [place] [address] 07/17/2024 2:00 PM EDT Office Visit [facility] [address] [place] [address] [phone] Allie Driver MD [address] [place] [address] documented as of this encounter Goals Goal Patient Goal Type Associated Problems Recent Progress Patient-Stated? Author Blood Pressure < 140/90 Blood Pressure 144/95( 025 11:29 AM EST) No Bernys-Gambl darrion, Aleja, PharmD Quit using tobacco (cigarettes, smokeless, etc) Tobacco Use No Piers-Gambl darrion, Aleja, PharmD documented as of this encounter Visit Diagnoses Not on filedocumented in this encounter Additional Health Concerns Assessment Noted Time PHQ-9 Depression Total Score: 0 05/31/19 24 2:12 PM EDT documented as of this encounter Care Teams Restaurant Worker Relationship Specialty Start Date End Date Mery Theodore MD [address] [place] [address] PCP - General Internal Medicine 04/19/23 Aleja Tang, PharmD [address] [place] [address] Pharmacist Internal Medicine 07/19/23 documented as of this encounter
--- OUTSIDE RECORDS SUMMARY | 2024-06-12 17:40 | XMS_ITS | Clinical Summary ---
Author Organization [employer] Address [address] [facility] [address] [place] [address] Care Team Providers Care [employer] Name Role Phone Mery Theodore MD Primary Care Provide r Aleja Tang PharmD Unavailable [phone] Allergies No known active allergies Medications * [...] BY MOUTH EVERY DAY 90 tablet 1 024 Active atorvastatin (Lipitor) 40 MG tabletIndications :Hyperlipidemia, unspecified hyperlipidemia type Take 1 tablet by mouth once daily 90 tablet 024 Active nicotine polacrilex (Nicotine Mini) 2 MG lozengeIndication s:Tobacco dependence syndrome Dissolve 1 lozenge (2 mg) in the mouth if needed for smoking cessation. 100 lozenge 025 Active atenolol (Tenormin) 50 MG tabletIndications :Essential hypertension TOME ANDRE TABLETA TODOS LOS FERNANDEZ PARA LA PRESION ARTERIAL 90 tablet 3 025 Active ergocalciferol (Vitamin D2) 1.25 MG (15805 UT) capsule Take 1 capsule (1.25 mg) by mouth 1 (one) time per week. 12 capsule 1 025 2024 Active acetaminophen (Tylenol) 500 MG tablet Take 2 tablets (1,000 mg) by mouth every 6 (six) hours if needed for moderate pain or fever for up to 25 doses. 50 tablet 025 Active ibuprofen 400 MG tablet Take 1 tablet (400 mg) by mouth every 6 (six) hours if needed for moderate pain or fever for up to 30 doses. 30 tablet 025 Active lidocaine (Lidoderm) 5 % patch Apply 1 patch topically Once per day. Remove & discard patch within 12 hours or as directed by MD. 30 patch 2 025 2025 Active cyclobenzaprine (Flexeril) 10 MG tablet Take 1 tablet (10 mg) by mouth every 8 (eight) hours if needed for muscle spasms. 30 tablet 1 025 Active amLODIPine-olmesa rtan (Haylee) 10-20 MG tabletIndications :Essential (primary) hypertension TAKE 1 TABLET BY MOUTH EVERY DAY 90 tablet 025 Active sildenafil (Viagra) 100 MG tabletIndications :Erectile dysfunction, unspecified erectile dysfunction type TAKE 1 TABLET BY MOUTH EVERY DAY NEEDED FOR ERECTILE DYSFUNCTION 12 tablet 025 Active amLODIPine-olmesa rtan (Haylee) 10-20 MG tabletIndications :Essential (primary) hypertension Take 1 tablet by mouth once daily 90 tablet 024 2024 Discontinued(R eorder (will not trigger notification to Pharmacy)) sildenafil (Viagra) 100 MG tabletIndications :Erectile dysfunction, unspecified erectile dysfunction type Take 1 tablet (100 mg) by mouth if needed each day for erectile dysfunction. 12 tablet 025 2024 Discontinued(R eorder (will not trigger notification to Pharmacy)) Hospital, Clinic, or Other Facility Administered Medication Ordered Dose Route Frequency Start Date End Date Status ketorolac (Toradol) injection 30 mgIndications:Chronic bilateral low back pain without sciatica 30 mg IM Once 05/19/2024 05/19/2024 Ended Active Problems Problem Noted Date Diagnosed Date Palpitations 03/27/2024 Anxiety 03/27/2024 Assessment & Plan (03/28/2024 4:48 PM EST): Counseling done [facility] referral Declines medications for now Resistant hypertension [...] PM EDT): Patient to be follow by [facility] hepatitis C team Hypersomnia 06/18/2023 Colon cancer [...] provided him additional information about this in Turkish), and attempting to quit smoking. I will [...] organization. Date Type Department Care Team Description 06/10/2024 Orders Only [facility] [address] [place], [place] [phone] Allie Driver MD 06/08/[address] [address] Mery Theodore MD Med Refill 06/08/[address] [address] Mery Theodore MD Essential (primary) hypertension; Erectile dysfunction, unspecified erectile dysfunction type 05/30/2024 Telephone [facility] [address] [place] [address] Vandana Bennett RN 05/19/2024 11:20 AM EST Office Visit [facility] [address] [place] [phone] Angel Vee MD Chronic bilateral low back pain without sciatica (Primary Dx); Elevated blood pressure reading in office without diagnosis of hypertension 05/19/[address] [address] Mery Theodore MD ER Follow-up 05/16/[address] [address] Mery Theodore MD Med Refill 04/26/[address] [address] Vandana Bennett, RN 04/24/[address] [address] Marcela Gonzalez, RN Results 04/24/2024 Orders Only [address] [address] Amy Simmons MD Vitamin D deficiency (Primary Dx) 04/24/2024 Orders Only [address] [address] Mery Theodore MD 04/14/[address] [address] Vandana Bennett, RN Call Back Request 04/12/[address] [address] Mery Theodore MD Erectile dysfunction, unspecified erectile dysfunction type 04/12/[address] [address] Mery Theodore MD Med Refill 04/12/2024 Refill [facility] [address] [place] [address] Mery Theodore MD Essential hypertension 03/27/2024 10:00 AM EST Office Visit [address] [address] Mery Theodore MD Essential (primary) hypertension (Primary Dx); Palpitations; Anxiety; Tobacco dependence syndrome 03/27/2024 Travel 03/21/2024 Patient Outreach [address] [address] Mery Theodore MD 03/21/2024 Patient Outreach [facility] [address] [place], [place] [phone] Mery Theodore MD Pre-visit Planning ([facility] screening completed on 05/31/2023) from Last 3 Months Immunizations Name Administration [...] Mass Index 29.08 05/19/2024 11:29 AM EST Plan of Treatment Upcoming Encounters Date Type Department Care Team (Late st Contact Info) Description 07/11/2024 10:00 AM EDT Office Visit [facility] [address] [place] [phone] Mery Theodore MD [address] [place] [address] 07/17/2024 2:00 PM EDT Office Visit [facility] [address] [place] [address] Allie Driver MD [address] [place] [address] Health Maintenance Due Date Last Done Comments [...] of 2 - PCV) 01/11/1995 COVID-19 Vaccine (3 - season) 2023 12/10/2020, 11/19/2020 Influenza Vaccine (#1) 2023 12/25/2020 Depression Screening 05/30/2024 05/31/2023, 05/31/19 24 SDOH Screening 05/30/2024 05/31/2023 Tobacco Screening 05/19/2025 05/19/2024 Zoster Vaccines (1 of 2) 01/11/2026 Colorectal Cancer Screening 06/21/2026 FIT DNA/Cologuard 06/21/2026 06/22/2023 Lipid Panel 06/10/2029 06/10/2024, 01/20, 06/01/2023, Additional history exists DTaP/Tdap/Td Vaccines (2 - Td or Tdap) 04/29/2031 04/29/2021 RSV Patients and Patients Aged 60 years or older (1 - 1-dose 75+ series) 01/11/2051 HIV Screening Completed 04/24/2024, 06/01/2023 HIB Vaccines Aged Out No longer [...] Procedure Name Priority Date/Time Associated Diagnosis Comments BASIC METABOLIC PANEL Routine 06/10/2024 10:57 AM EDT HEPATIC FUNCTION PANEL Routine 10:57 AM EDT LIPID PANEL, STANDARD Routine 06/10/2024 10:57 AM EDT Essential (primary) hypertension Palpitations URINALYSIS WITH REFLEX TO MICROSCOPIC Routine 06/10/2024 10:55 AM EDT HEPATITIS C VIRAL RNA, QUANTITATIVE, REAL-TIME PCR Routine 04/24/2024 12:50 PM EST Vitamin D deficiency HEPATIC FUNCTION PANEL Routine 12:50 PM EST TSH W/REFLEX TO FT4 Routine 04/24/2024 1 2:50 PM EST Essential (primary) hypertension Palpitations VITAMIN D,25-OH,TOTAL,IA Routine 04/24/2024 12:50 PM EST Essential (primary) hypertension Palpitations HEPATITIS C AB W/REFL TO HCV RNA, QN, PCR Routine 04/24/2024 12:50 PM EST Essential (primary) hypertension Palpitations HIV 1/2 ANTIGEN/ANTIBODY, FOURTH GENERATION W/RFL Routine 04/24/2024 12:50 PM EST Essential (primary) hypertension Palpitations HEMOGLOBIN A1C Routine 04/24/2024 12:50 PM EST Essential (primary) hypertension Palpitations COMPREHENSIVE METABOLIC PANEL Routine 04/24/2024 12:50 PM EST Essential (primary) hypertension Palpitations CBC WITH AUTO DIFFERENTIAL Routine 04/24/2024 12:50 PM EST Essential (primary) hypertension Palpitations LAB COLOGUARD?? COLON CANCER SCREEN Routine 06/22/2023 7:30 AM EDT Colon cancer screening from Last 3 Months or Most Recently Relevant to Health Maintenance Results * (ABNORMAL) Hepatic Function Panel (06/10/2024 10:57 AM EDT) Only the most recent of2 resultswithin the time period is included. Bilirubin, Total 1.4(H) 0.0 - 1.0 mg/dL [facility] Bilirubin, Direct 0.4 0.0 - 0.5 mg/dL [facility] Aspartate Amino Transferase 21 5 - 37 U/L [facility] Alanine Aminotransferase 13 0 - 40 U/L [facility] Total Protein 8.0 6.5 - 8.0 g/dL [facility] Albumin Level 4.3 3.5 - 5.0 g/dL [facility] Alkaline Phosphatase 62 39 - 117 U/L [facility] 06/10/2024 10:5 7 AM EDT 06/10/2024 10:57 AM EDT Allie Driver MD LAB BLOOD ORDERABLES Final R esult [facility] [address] [place] [phone] * (ABNORMAL) Lipid Panel, Standard (06/10/2024 10:57 AM EDT) Triglycerides 114 <150 mg/dL [facility] Comment:Desirable Triglyceri de: less than 150 mg/dLBorderline High Triglyceride 150-199 mg/dLHigh Triglyceride: 200-499 mg/dLVery High Triglyceride: greater than or equal to 5OO mg/dL Cholesterol 162 <200 mg/dL [facility] Comment:Desirable Cholestero l: less than 200 mg/dLBorderline High Cholesterol: 200-239 mg/dLHigh Cholesterol: greater than 239 mg/dL LDL Cholesterol Calculated 114(H) <100 mg/dL [facility] Comment:Desirable LDL: less than 100 mg/dLNear Optimal/Above Optimal LDL: 110- 129 mg/dLBorderline High LDL: 130-159 mg/dLHigh LDL: 160-189 mg/dLVery High LDL: greater than or equal to 190 mg/dL HDL Cholesterol 26(L) >40 mg/dL [facility] Comment:Desirable HDL: great er than 40 mg/dL Note: This HDL assay may give artificially low results in patients with liver disease. Blood Venous blood specimen / Unknown 06/10/2024 10:57 AM EDT 06/10/2024 10:57 AM EDT us Mery Hernandez MD LAB BLOOD ORDERABLES Final Result Performing Organization Address [facility]/ZIP Co de Phone Number [facility] [address] [place] [phone] * (ABNORMAL) Basic Metabolic Panel (06/10/2024 10:57 AM EDT) Sodium 139 135 - 145 mmol/L [facility] Potassium 3.6 3.3 - 5.1 mmol/L [facility] Chloride 102 96 - 108 mmol/L [facility] Carbon Dioxide 30(H) 22 - 29 mmol/L [facility] Anion Gap 11(L) 12 - 20 [facility] Urea Nitrogen (BUN) 18(H) 9 - 16 mg/dL [facility] Creatinine, Serum 1.02 0.5 - 1.4 mg/dL [facility] Estimated Glomerular Filt Rate >60 [facility] Comment:Chronic Kidney Disea se: Estimated GFR < 60 mL/min/1.35m7Zrpgoi Kidney Disease: Estimated GFR < 15 mL/min/1.73m2 Glucose 98 60 - 115 mg/dL [facility] Calcium 9.8 8.4 - 10.2 mg/dL [facility] 06/10/2024 10:5 7 AM EDT 06/10/2024 10:57 AM EDT us Generic External Data Provider LAB BLOOD ORDERAB LES Final Result Performing Organization Address [facility]/ZIP Co de Phone Number [facility] [address] [place] [phone] * Urinalysis with Reflex to Microscopic (06/10/2024 10:55 AM EDT) Color Urine Yellow [facility] Appearance Urine Clear [facility] PH 6.5 5.0 - 9.0 [facility] Glucose Urine UA Negative Negative mg/dL [facility] Urine Blood Negative Negative [facility] Specific [place] - Urine 1.020 1.005 - 1.025 [facility] Urine Protein Negative Neg-Trace mg/dL [facility] Urine Ketones Negative Negative mg/dL [facility] Nitrite Urine Negative Negative [facility] Leukocyte Esterase Urine Negative Negative [facility] 06/10/2024 10:5 5 AM EDT 06/10/2024 11:15 AM EDT us Generic External Data Provider LAB URINE ORDERAB LES Final Result [facility] [address] [place] [phone] * (ABNORMAL) Vitamin D, 25-Hydroxy, Total, Immunoassay (04/24/2024 12:50 PM EST) Vitamin D 25-OH Total 8.0(L) >30 ng/mL [facility] Comment:Health Based Referen ce Values*< 20 ng/mL Nlvutrbkc40-38 ng/mL Insufficient> 30 ng/mL Sufficient*Ric MULLEN. N Engl J Med. 2007;357:266-280Care must be taken in interpreting Vitamin D results fromdifferent laboratories and methodologies. Published datademonstrated that results from patients undergoinghemodialysis may show a negative bias when tested withvarious automated 25-OH vitamin D assays when compared toLC-MS/MS.When testing samples from patients whose predominant form ofVitamin D is Vitamin D2, such as patients receiving VitaminD2 supplementation, results that are subtherapeutic shouldbe confirmed with another method such as LC-MS/MS. Blood Venous blood specimen / Unknown 04/24/2024 12:50 PM EST 04/24/2024 1:10 PM EST us Mery Hernandez MD LAB BLOOD ORDERABLES Final Result Performing Organization Address City/[facility]/ZIP Co de Phone Number [facility] [address] [place] [phone] * TSH with Reflex to Free T4 (04/24/2024 12:50 PM EST) Pathologist [facility] [place] TSH reflex Free T4 1.84 0.32 - 4.0 uIU/mL [facility] Blood Venous blood specimen / Unknown 04/24/2024 12:50 PM EST 04/24/2024 1:10 PM EST us Mery Hernandez MD LAB BLOOD ORDERABLES Final Result Performing Organization Address [facility] Co de Phone Number [facility] [address] [place] [phone] * Hepatitis C Viral RNA, Quantitative, Real-Time PCR (04/24/2024 12:50 PM EST) Pathologist [facility] [place] Hepatitis C Viral Load <15 NOT DETECTED NOT DETECTED IU/mL [facility] HCV Log PCR <1.18 NOT DETECTED NOT DETECTED Log IU/mL [facility] Comment:For additional infor mation, please refer tohttp://education.[employer]/faq/YJB03i3(This link is being provided for informational/educational purposes only.)THIS TEST WAS PERFORMED AT:[facility] [place] [phone] OG MD 04/24/2024 12:5 0 PM EST 04/24/2024 1:10 PM EST Allie Driver MD LAB BLOOD ORDERABLES Final R esult Performing Organization Address [facility]/ZIP Co de Phone Number [facility] [address] [place] [phone] * (ABNORMAL) CBC auto differential (04/24/2024 12:50 PM EST) White Blood Count 6.7 4.8 - 10.8 X10*3/uL [facility] Red Blood Count 3.92(L) 4.60 - 5.80 X10*6/uL [facility] Hemoglobin 15.0 14.0 - 18.0 g/dl [facility] Hematocrit 41.1(L) 42.0 - 52.0 % [facility] Mean Corpuscular Volume 104.8(H) 80.0 - 98.0 fL [facility] Mean Corpuscular Hemoglobin 38.3(H) 27.0 - 33.0 pg [facility] Mean Corpuscular HGB Conc 36.5(H) 31.0 - 36.0 g/dl [facility] Red Cell Distribution Width 14.1 11.0 - 16.0 % [facility] Platelet Count 266 160 - 400 X10*3/uL [facility] Mean Platelet Volume 9.5 9.4 - 12.4 fL [facility] Neutrophils Percent Auto 50.0 45 - 73 % [facility] Imm Gran Pct Auto 0.2 0.0 - 0.4 % [facility] Lymphocytes Percent Auto 31.7 20 - 40 % [facility] Monocytes Percent Auto 10.4 2 - 11 % [facility] Eosinophils Percent Auto 7.4(H) 0 - 4 % [facility] Basophils Percent Auto 0.3 0 - 2 % [facility] NRBC Pct Auto 0.0 0.0 - 0.2 /100WBC [facility] Neutrophils Absolute Auto 3.3 2.0 - 8.3 x10*3/uL [facility] Imm Gran Abs Auto 0.01 0.00 - 0.03 X10*3/uL [facility] Lymphocytes Absolute Auto 2.1 1.2 - 4.9 X10*3/uL [facility] Monocytes Absolute Auto 0.7 0.1 - 1.2 X10*3/uL [facility] Eosinophils Absolute Auto 0.5(H) 0.0 - 0.4 X10*3/uL [facility] Basophils Absolute Auto 0.0 0.0 - 0.2 X10*3/uL [facility] NRBC Abs Auto 0.000 0.0 - 0.012 X10*3/uL [facility] Blood Venous blood specimen / Unknown 04/24/2024 12:50 PM EST 04/24/2024 1:10 PM EST Mery Hernandez MD LAB BLOOD ORDERABLES Final Result Performing Organization Address City/[facility]/ZIP Co de Phone Number [facility] [address] [place] [phone] * (ABNORMAL) Hepatitis C Antibody with Reflex to HCV, RNA, Quantitative, Real- Time PCR (04/24/2024 12:50 PM EST) Hepatitis C Antibody Reactive( A) Nonreactive [facility] Comment:Presumptive evidence of antibodies to HCV. Blood Venous blood specimen / Unknown 04/24/2024 12:50 PM EST 04/24/2024 1:10 PM EST Mery Hernandez MD LAB BLOOD ORDERABLES Final Result Performing Organization Address [facility] Co de Phone Number [facility] [address] [place] [phone] * HIV-1/2 Antigen and Antibodies, Fourth Generation, with Reflexes (04/24/2024 12:50 PM EST) HIV AB/AG Nonreactive Nonreactive [facility] Comment:HIV-1 p24 Ag and/or HIV-1/HIV-2 Ab not detected.A test result that is nonreactive does not exclude thepossibility of exposure to or infection with HIV-1 and/orHIV-2. Nonreactive results in this assay for individualswith prior exposure to HIV-1 and/or HIV-2 may be due toantigen and antibody levels that are below the limit ofdetection of this assay.The uiu HIV Ag/Ab Combo assay result andsupplemental assay results should be interpreted inconjunction with the patient's clinical presentation,history and other laboratory results. If the results areinconsistent with clinical evidence, additional testing issuggested to confirm the result. Blood Venous blood specimen / Unknown 04/24/2024 12:50 PM EST 04/24/2024 1:10 PM EST Mery Hernandez MD LAB BLOOD ORDERABLES Final Result Performing Organization Address [facility] Co de Phone Number [facility] [address] [place] [phone] * Hemoglobin A1c (04/24/2024 12:50 PM EST) Hemoglobin A1c 5.3 <6.0 % [facility] Comment:Hemoglobin A1C Refer ence Range Adults: 4.8 - 6.0 % Non diabetic: < 6.0 % Goal: < 7.0 %Additional Action Suggested: > 8.0 %Note: Hemoglobin A1c results are invalid for patients with abnormal amounts of HbF. Blood transfusions may impact the HbA1c concentration in the patient sample. Estimated Average Glucose 105 mg/dL [facility] Comment:eAG = Estimated ave rage glucose which is %A1C expressed asaverage glucose, using the formula of the Z4T-TatxvhjSqydmdw Glucose study (ADAG), Diabetes Care, Vol.31,#8,Oct. 2007 Blood Venous blood specimen / Unknown 04/24/2024 12:50 PM EST 04/24/2024 1:10 PM EST us Mery Hernandez MD LAB BLOOD ORDERABLES Final Result Performing Organization Address [facility] Co de Phone Number [facility] [address] [place] [phone] * (ABNORMAL) Comprehensive Metabolic Panel (04/24/2024 12:50 PM EST) Sodium 139 135 - 145 mmol/L [facility] Potassium 3.9 3.3 - 5.1 mmol/L [facility] Chloride 102 96 - 108 mmol/L [facility] Carbon Dioxide 30(H) 22 - 29 mmol/L [facility] Anion Gap 11(L) 12 - 20 [facility] Urea Nitrogen (BUN) 23(H) 9 - 16 mg/dL [facility] Creatinine, Serum 1.04 0.5 - 1.4 mg/dL [facility] Estimated Glomerular Filt Rate >60 [facility] Comment:Chronic Kidney Disea se: Estimated GFR < 60 mL/min/1.95l6Nsachm Kidney Disease: Estimated GFR < 15 mL/min/1.73m2 Glucose 97 60 - 115 mg/dL [facility] Calcium 9.7 8.4 - 10.2 mg/dL [facility] Bilirubin, Total 1.6(H) 0.0 - 1.0 mg/dL [facility] Aspartate Amino Transferase 23 5 - 37 U/L [facility] Alanine Aminotransferase 12 0 - 40 U/L [facility] Total Protein 7.8 6.5 - 8.0 g/dL [facility] Albumin Level 4.4 3.5 - 5.0 g/dL [facility] Alkaline Phosphatase 59 39 - 117 U/L [facility] Blood Venous blood specimen / Unknown 04/24/2024 12:50 PM EST 04/24/2024 1:10 PM EST Mery Hernandez MD LAB BLOOD ORDERABLES Final Result [facility] [address] [place] [phone] * Cologuard?? colon cancer screening (06/22/2023 7:30 AM EDT) Cologuard Result Negative Negative 06/26/19 24 12:44 AM EDT [employer] (CLIA #:[id number]) Comment: NEGATIVE TEST RESULT. A negative Cologuard [...] cancer. ??Following a negative Cologuard result, the [place] [employer] Society and U.S. Multi-Society Task Force screening guidelines recommend a Cologuard re-screening interval of 3 years. References: [place] [employer] Guideline for Colorectal Cancer Screening: https://www.cancer.org/cancer/csqey-ptbwmq-qjqpgs/gljqyugop-gskpssjdi-qoufniw/ac s-rec ommendations.html.; Surjit DK, Joellen CR, Jessica ShoreK, Colorectal Cancer Screening: Recommendations for Physicians and Patients from the U.S. Multi-Society Task Force on Colorectal Cancer Screening , Am J Gastroenterology 2017; 112:2306-2264. TEST DESCRIPTION: Composite algorithmic analysis of stool [...] (Joesph Todd al, N Engl J Med 2014;370(14):8898-1041.) Cologuard may produce a false negative or false positive result (no colorectal cancer or precancerous polyp present at colonoscopy follow up). A negative Cologuard test result does not guarantee the absence of CRC or advanced adenoma (pre-cancer). The current Cologuard screening interval is every 3 years. ([place] [employer] and U.S. Multi-Society Task Force). Cologuard performance data in a 10,000 patient pivotal study using colonoscopy as the reference method can be accessed at the following location: www.[employer]/results. Additional description of the Cologuard test process, warnings and precautions can be found at www.[employer]. Stool specimen (specimen) 06/22/2023 7:30 AM EDT 06/23/2023 11:01 AM EDT Mery Hernandez MD LAB MOLECULAR DIAGNOS TICS ORDERABLES Final Result [employer] (CLIA #:[id number]) [address] [place] [address], from Last 3 Months or Most Recently Relevant to Health Maintenance Insurance DENTAL - HSN FULL (MEDICAID) [id number] Advance Directives Documents on File Type Date Recorded Patient Rug Measurer Expl anation HealthCare Proxy 02/09/2024 2:22 PM proxy Advance Directives and Living Will 09/26/2023 Health Care Proxy 09/26/23 Care Teams Hat Parts Cutter Machine Relationship Specialty Start Date End Date Mery Theodore MD [address] [place] [address] PCP - General Internal Medicine 04/19/23 Aleja Tang PharmD [address], [place] [phone] Pharmacist Internal Medicine 07/19/23
--- OUTSIDE RECORDS SUMMARY | 2024-06-12 17:40 | XMS_ITS | Encounter Summary ---
Author Organization [employer] Address [address] 7[address] [place] [address] Care Team Providers Care Oil Inspector Name Role Phone Mery Theodore MD Primary Care Provide r Aleja Tang PharmD Unavailable [phone]- [phone] Encounter Details Date Type Department Care Team (Late st Contact Info) Description 05/30/2024 Telephone [facility] [address], [place] [phone] Vandana Bennett, CYNDIE [address] [place] [address] Social History Tobacco Use Types Packs/Day Years [...] Telephone Encounter - Vandana Bennett RN - 06/02/2024 4:13 PM EDT RN called pt and rescheduled missed HEP C JOSIAS MD appt to 07/17/24, pt agrees to POC. * Telephone Encounter - Louie Abdul - 06/01/2024 9:16 AM EDT Tc from pt returning call regarding prior message. Contact pt at [phone] * Telephone Encounter - Vandana Bennett RN - 05/31/2024 8:44 AM EDT RN called pt x2 to rescheduled HEP C JOSIAS visit. No answer, LVM, Pt to return call. * Telephone Encounter - Vandana Bennett RN - 05/30/2024 11:10 AM EDT RN called pt to reschedule JOSIAS HEP C visit. No answer, LVM for return call. documented in this encounter Plan of Treatment Upcoming Encounters Date Type Department Care Team (Late st Contact Info) Description 07/11/2024 10:00 AM EDT Office Visit [facility] [address] [place] [address] Mery Theodore MD [address] [place] [phone] 07/17/2024 2:00 PM EDT Office Visit [facility] [address] [place] [address] Allie Driver MD [address] [place] [address] documented as of this encounter Goals Goal [...] documented as of this encounter Care Teams Oil Inspector Relationship Specialty Start Date End Date Mery Theodore MD [address] [place] [phone] PCP - General Internal Medicine 04/19/23 BernysAleja Mcclelland, PharmD [address] [place] [phone] Pharmacist Internal Medicine 07/19/23 documented as of this encounter
--- OUTSIDE RECORDS SUMMARY | 2024-06-12 17:40 | XMS_ITS | Encounter Summary ---
Author Organization [employer] Address [address] [facility] 7t [place] [address] Care Team Providers Care Circular Shear Operator Name Role Phone Mery Theodore MD Primary Care Provide r Aleja Tang PharmD Unavailable [phone] Reason for Visit * Reason Onset Date Comments Med Refill 06/08/2024 Encounter Details Date Type Department Care Team (Late st Contact Info) Description 06/08/2024 Refill [facility] [address] [place], [place] [phone] Mery Theodore MD [address] [place], [place] [phone] Essential (primary) hypertension; Erectile dysfunction, unspecified erectile dysfunction type Social [...] Aponte LPN - 06/08/2024 9:43 AM EDT Last seen 05/19/24. * Telephone Encounter - Louie Abdul - 06/08/2024 9:28 AM EDT TC from pt requesting medication refill. Medications needing refill : amLODIPine-olmesartan (Haylee) 10-20 MG tablet To be sent to: [facility]/pharmacy #[id number] - [place], [place] - [address] [facility] documented in this encounter Plan of Treatment Upcoming Encounters Date Type Department Care Team (Late st Contact Info) Description 07/11/2024 10:00 AM EDT Office Visit [facility] [address] [place] [phone] Mery Theodore MD [address] [place] [address] 07/17/2024 2:00 PM EDT Office Visit [facility] [address] [place] [address] Allie Driver MD [address] [place] [address] documented as of this encounter Goals Goal Patient Goal Type Associated Problems Recent Progress Patient-Stated? Author Blood Pressure < 140/90 Blood Pressure 144/95( 025 11:29 AM EST) No Bernys-Eriberto maier, Aleja, PharmD Quit using tobacco (cigarettes, smokeless, etc) Tobacco Use No Piers-Gambl darrion, Aleja, PharmD documented as of this encounter Visit Diagnoses Diagnosis Essential (primary) hypertension Unspecified essential hypertension Erectile dysfunction, unspecified erectile dysfunction type documented in this encounter Additional Health Concerns Assessment Noted Time PHQ-9 Depression Total Score: 0 05/31/19 24 2:12 PM EDT documented as of this encounter Care Teams Circular Shear Operator Relationship Specialty Start Date End Date Mery Theodore MD [address] [place] [phone] PCP - General Internal Medicine 04/19/23 Aleja Tang PharmD [address] [place] [phone] Pharmacist Internal Medicine 07/19/23 documented as of this encounter
== END 2024-06-12 15:24 | disposition home or self-care (01) ==
LOC: HO.HKA 14:48
PROVIDERS: PCP Internal Medicine; Visit Provider Internal Medicine Hypertension Specialist
DX: I1A.0 Resistant hypertension (principal); B18.2 Chronic viral hepatitis C
CPT/HCPCS: 99213

== ENCOUNTER → 2024-06-12 14:47 | Outpatient (BNVA) | payer OTHER, SELFPAY | PROVIDERS: PCP Internal Medicine; Visit Provider Internal Medicine Hypertension Specialist | DX: I1A.0 Resistant hypertension (principal); B18.2 Chronic viral hepatitis C | CPT/HCPCS: 99212 ==

== ENCOUNTER 2024-07-27 08:25 | Outpatient (REF) | payer OTHER, SELFPAY ==
--- OUTSIDE RECORDS SUMMARY | 2024-07-27 08:41 | XMS_ITS | Clinical Summary ---
Author Organization [employer] Address [address] [facility] 7t [place] [address] Care Team Providers Care Demolition Crane Operator Name Role Phone Mery Theodore MD Primary Care Provide r Aleja Tang PharmD Unavailable [phone] Allergies No known active allergies Medications * This document contains information received from the source organization and may not represent a complete record from that organization. nicotine (Nicoderm CQ) 14 MG/24HR patchIndications :Tobacco dependence syndrome Place 1 patch on the skin 1 (one) time each day at the same time. 12 patch 4 Active nicotine (Nicoderm CQ) 7 MG/24HR patch Place 1 patch on the skin 1 (one) time each day at the same time. For 2 weeks 14 patch 4 Active magnesium oxide (Mag-Ox) 250 MG tablet Take 250 mg by mouth Once per day. PURCHASES OTC (Unclear the actual Strength) Active omega-3 (Fish Oil) 1000 MG capsule PT PURCHASING OTC Active chlorthalidone (Hygroton) 50 MG tabletIndication s:Essential hypertension TAKE 1 TABLET BY MOUTH EVERY DAY 90 tablet 1 4 Active atenolol (Tenormin) 50 MG tabletIndication s:Essential hypertension TOME ANDRE TABLETA TODOS LOS FERNANDEZ PARA LA PRESION ARTERIAL 90 tablet 3 5 Active ergocalciferol (Vitamin D2) 1.25 MG (31542 UT) capsule Take 1 capsule (1.25 mg) by mouth 1 (one) time per week. 12 capsule 1 5 10/10/19 25 Active acetaminophen (Tylenol) 500 MG tablet Take 2 tablets (1,000 mg) by mouth every 6 (six) hours if needed for moderate pain or fever for up to 25 doses. 50 tablet 5 Active ibuprofen 400 MG tablet Take 1 tablet (400 mg) by mouth every 6 (six) hours if needed for moderate pain or fever for up to 30 doses. 30 tablet 5 Active lidocaine (Lidoderm) 5 % patch Apply 1 patch topically Once per day. Remove & discard patch within 12 hours or as directed by MD. 30 patch 2 5 05/19/19 26 Active cyclobenzaprine (Flexeril) 10 MG tablet Take 1 tablet (10 mg) by mouth every 8 (eight) hours if needed for muscle spasms. 30 tablet 1 5 Active amLODIPine-olmes theresa (Haylee) 10-20 MG tabletIndication s:Essential (primary) hypertension TAKE 1 TABLET BY MOUTH EVERY DAY 90 tablet 5 Active sildenafil (Viagra) 100 MG tabletIndication s:Erectile dysfunction, unspecified erectile dysfunction type TAKE 1 TABLET BY MOUTH EVERY DAY NEEDED FOR ERECTILE DYSFUNCTION 12 tablet 1 5 Active cetirizine (ZyrTEC) 10 MG tablet Take 1 tablet (10 mg) by mouth Once per day. 30 tablet 3 5 06/16/19 26 Active fluticasone (Flonase) 50 MCG/ACT nasal spray Administer 2 sprays into each nostril Once per day. Shake gently. Before first use, prime pump. After use, clean tip and replace cap. 16 g 3 5 06/16/19 26 Active nicotine polacrilex ([facility] Nicotine) 2 MG gumIndications:T obacco dependence syndrome weeks 1 to 6, chew 1 piece of gum every 1-2 hours PRN; during weeks 7 to 9, chew 1 piece every 2 to 4 hours PRN; during weeks 10 to 12, chew 1 piece every 4 to 8 hours PRN, then stop. MAX 24 pieces gum/day 100 each 5 Active atorvastatin (Lipitor) 20 MG tabletIndication s:Dyslipidemia Take 1 tablet (20 mg) by mouth Once per day. 90 tablet 5 Active Active Problems Problem Noted Date Diagnosed Date Hepatitis C virus infection cured after antiviral drug therapy 07/17/2024 Dyslipidemia 06/21/2024 Palpitations 03/27/2024 Anxiety 03/27/2024 Assessment & Plan [...] provided him additional information about this in [place]), and attempting to quit smoking. I will [...] without first consulting health care provider Encounters Date Type Department Care Team Description 07/17/2024 2:00 PM EDT Telemedicine [address] [address] Allie Driver MD Chronic hepatitis C without hepatic coma (CMS/HCC) (Primary Dx); Hepatitis C virus infection cured after antiviral drug therapy 07/17/2024 Travel 07/03/[address] [address] Mery Theodore MD Chart Prep 06/30/2024 Patient Outreach [address] [address] Mery Theodore MD Pre-visit Planning (SDOH screening negative and tobacco screening negative) 06/21/2024 Orders Only [address] [address] Mery Theodore MD Dyslipidemia (Primary Dx) 06/20/2024 Travel 06/15/2024 8:40 AM EDT Office Visit [facility] [address] [place] [phone] Chiara Yañez DO Tongue lesion (Primary Dx); Throat irritation; Chronic nasal congestion; Erectile dysfunction, unspecified erectile dysfunction type 06/14/[address] [address] Mery Theodore MD Nurse Triage 06/10/2024 Orders Only [address] [address] Allie Driver MD 06/08/[address] [address] Mery Theodore MD Med Refill 06/08/2024 Refill [facility] [address] [place] [address] Mery Theodore MD Essential (primary) hypertension; Erectile dysfunction, unspecified erectile dysfunction type 05/30/2024 Telephone [facility] [address] [place] [phone] Vandana Bennett RN 05/19/2024 11:20 AM EST Office Visit [facility] [address] [place] [phone] Angel Vee MD Chronic bilateral low back pain without sciatica (Primary Dx); Elevated blood pressure reading in office without diagnosis of hypertension 05/19/2024 Telephone [facility] [address] [place] [phone] Mery Theodore MD ER Follow-up 05/16/[address] [address] Mery Theodore MD Med Refill from Last 3 Months Immunizations Name Administration Dates Next Due Influenza injectable quadrivalent preservative f ree 12/25/2020 Tdap 04/29/2021 Social History Tobacco Use Types Packs/Day Years Used Date Smoking Tobacco: Former Cigarettes Q uit: 06/13/2024 Passive Smoke Exposure: Past Alcohol Use Standard Drinks/Week Comments Never 0 (1 standard drink = 0.6 oz pur e alcohol) Depression Answer Date Recorded Patient Health Questionnaire-9 Score 0 05/31/2023 Patient Health Questionnaire-9 Score 0 05/31/2023 Last PHQ-9: Questionnaire Data Not on file 0 05/31/2023 Housing Stability Answer Date Recorded What is your housing situation today? I have mila dsouza 06/30/[address] you li ve. Do you have problems with any of the following? None of the above 06/30/2024 Food Insecurity Answer Date Recorded Within the past 12 months, y ou worried that your food would run out before you got money to buy more: Never True 06/30/2024 Within the past 12 months,th e food you bought just didn't last and you didn't have enough money to get more: Never True 01/2025 Transportation Answer Date Recorded In the past 12 months, has l ack of transportation kept you from medical appts, meetings, work or from getting things needed for daily living? No 06/30/2024 Utilities Answer Date Recorded In the past 12 months, has t he electric, gas, oil or water company threatened to shut off services in your home? No 06/30/2024 Depression Answer Date Recorded Patient Health Questionnaire-2 Score 0 05/31/2023 Internet Access Answer Date Recorded Internet Access Q1 Yes 06/30/2024 Internet Access Q2 Not on file 06/30/2024 Sex and Gender Information Value Date Recorded Sex Assigned at Male 01/19/2022 10:39 AM EDT Legal Sex Male 10:39 AM EDT Gender Identity Choose not to disclose 10:39 AM EDT Sexual Orientation Choose not to disclose 2021 10:39 AM EDT Last Filed Vital Signs Vital Sign Reading Time Taken Comments Blood Pressure 112/80 06/20/2024 3:11 PM EDT Pulse 76 06/20/2024 3:11 PM EDT Temperature 36.6 ??C (97.8 ??F) 06/15/2024 8:46 AM ED T Respiratory Rate 18 06/15/2024 8:46 AM EDT Oxygen Saturation 99% 06/15/2024 8:46 AM EDT Inhaled Oxygen Concentration - - Weight 99.6 kg (219 lb 9.6 oz) 06/15/2024 8:46 A M EDT Height 185.4 cm (6' 1 ) 05/19/2024 11:29 AM EST Body Mass Index 28.97 05/19/2024 11:29 AM EST Plan of Treatment Upcoming Encounters Date Type Department Care Team (Late st Contact Info) Description 08/01/2024 1:30 PM EDT Medication Management [facility] [address] [place] [phone] Aleja Tang, PharmD [address] [place] [address] 08/21/2024 3:30 PM EDT Office Visit [facility] [address] [place] [address] Mery Theodore MD [address] [place] [address] Health Maintenance Due Date Last Done Comments [...] - PCV) 01/11/1995 COVID-19 Vaccine (3 - 2023- season) 2023 12/10/2020, 11/19/2020 Influenza Vaccine (#1) 2023 12/25/2020 Depression Screening 05/30/2024 05/31/2023, 05/31/19 24 Tobacco Screening 06/20/2025 06/20/2024 SDOH Screening 06/30/2025 06/30/2024 Zoster Vaccines (1 of 2) 01/11/2026 Colorectal [...] Author Blood Pressure < 140/90 Blood Pressure 112/80( 025 3:11 PM EDT) No Piers-Gambl e, Aleja, PharmD Quit using tobacco (cigarettes, smokeless, etc) Tobacco Use No Piers-Gambl e, Aleja, PharmD Procedures Procedure Name Priority Date/Time Associated Diagnosis Comments POCT INFLUENZA B (ID NOW RAPID MOLECULAR) Routine 06/15/2024 9:16 AM EDT Throat irritation POCT INFLUENZA A (ID NOW RAPID MOLECULAR) Routine 06/15/2024 9:16 AM EDT Throat irritation POCT RAPID STREP A Routine 06/15/2024 9: 16 AM EDT Throat irritation POCT RAPID COVID ANTIGEN Routine 06/15/2024 9:16 AM EDT Throat irritation BASIC METABOLIC PANEL Routine 06/10/2024 10:57 AM EDT HEPATIC FUNCTION PANEL Routine 06/10/2024 10:57 AM EDT LIPID PANEL, STANDARD Routine 06/10/2024 10:57 AM EDT Essential (primary) hypertension Palpitations URINALYSIS WITH REFLEX TO MICROSCOPIC Routine 06/10/2024 10:55 AM EDT HIV 1/2 ANTIGEN/ANTIBODY, FOURTH GENERATION W/RFL Routine 04/24/2024 12:50 PM EST Essential (primary) hypertension Palpitations LAB COLOGUARD?? COLON CANCER SCREEN Routine 06/22/2023 7:30 AM EDT Colon cancer screening from Last 3 Months or Most Recently Relevant to Health Maintenance Results * Influenza B (ID NOW Rapid Molecular) (06/15/2024 9:16 AM EDT) [facility] Influenza B Negative Negative, Indeterminate [facility] Swab 06/15/2024 9:16 AM EDT Chiara Yañez DO POINT OF CARE TEST ENTER/ALBERTO T ORDERABLES Final Result Performing Organization Address [facility]/ZIP Co de Phone Number [facility] [address] [place] [phone] * Influenza A (ID NOW Rapid Molecular) (06/15/2024 9:16 AM EDT) [facility] Influenza A Negative Negative, Indeterminate [facility] Swab 06/15/2024 9:16 AM EDT Chiara Yañez DO POINT OF CARE TEST ENTER/ALBERTO T ORDERABLES Final Result Performing Organization Address [facility]/ZIP Co de Phone Number [facility] [address] [place] [phone] * POCT Rapid COVID Ag (06/15/2024 9:16 AM EDT) [facility] Rapid COVID Ag Negative [facility] Swab 06/15/2024 9:16 AM EDT Chiara Yañez DO POINT OF CARE TEST ENTER/ALBERTO T ORDERABLES Final Result Performing Organization Address [facility] Co de Phone Number [facility] [address] [place] [phone] * POCT rapid strep A manually resulted (06/15/2024 9:16 AM EDT) [facility] Rapid Strep A Screen Negative Negative, None Detected [facility] Swab 06/15/2024 9:16 AM EDT Chiara Yañez DO POINT OF CARE TEST ENTER/ALBERTO T ORDERABLES Final Result Performing Organization Address [facility] Co de Phone Number [facility] [address] [place] [phone] * (ABNORMAL) Hepatic Function Panel (06/10/2024 10:57 AM EDT) Bilirubin, Total 1.4(H) 0.0 - 1.0 mg/dL [facility] Bilirubin, Direct 0.4 0.0 - 0.5 mg/dL [facility] Aspartate Amino Transferase 21 5 - 37 U/L [facility] Alanine Aminotransferase 13 0 - 40 U/L [facility] Total Protein 8.0 6.5 - 8.0 g/dL [facility] Albumin Level 4.3 3.5 - 5.0 g/dL [facility] Alkaline Phosphatase 62 39 - 117 U/L [facility] 06/10/2024 10:5 7 AM EDT 06/10/2024 10:57 AM EDT us Allie Driver MD LAB BLOOD ORDERABLES Final R esult Performing Organization Address [facility] Co de Phone Number [facility] [address] [place] [phone] * (ABNORMAL) Lipid Panel, Standard (06/10/2024 10:57 AM EDT) Triglycerides 114 <150 mg/dL [facility] Comment:Desirable Triglyceri de: less than 150 mg/dLBorderline High Triglyceride 150-199 mg/dLHigh Triglyceride: 200-499 mg/dLVery High Triglyceride: greater than or equal to 5OO mg/dL Cholesterol 162 <200 mg/dL [facility] Comment:Desirable Cholestero l: less than 200 mg/dLBorderline High Cholesterol: 200-239 mg/dLHigh Cholesterol: greater than 239 mg/dL LDL Cholesterol Calculated 114(H) <100 mg/dL [facility] Comment:Desirable LDL: less than 100 mg/dLNear Optimal/Above Optimal LDL: 110- 129 mg/dLBorderline High LDL: 130-159 mg/dLHigh LDL: 160-189 mg/dLVery High LDL: greater than or equal to 190 mg/dL HDL Cholesterol 26(L) >40 mg/dL [facility] Comment:Desirable HDL: great er than 40 mg/dL Note: This HDL assay may give artificially low results in patients with liver disease. Blood Venous blood specimen / Unknown 06/10/2024 10:57 AM EDT 06/10/2024 10:57 AM EDT us Mery Hernandez MD LAB BLOOD ORDERABLES Final Result [facility] [address] [place] [phone] * (ABNORMAL) Basic Metabolic Panel (06/10/2024 10:57 AM EDT) Sodium 139 135 - 145 mmol/L [facility] Potassium 3.6 3.3 - 5.1 mmol/L [facility] Chloride 102 96 - 108 mmol/L [facility] Carbon Dioxide 30(H) 22 - 29 mmol/L [facility] Anion Gap 11(L) 12 - 20 [facility] Urea Nitrogen (BUN) 18(H) 9 - 16 mg/dL [facility] Creatinine, Serum 1.02 0.5 - 1.4 mg/dL [facility] Estimated Glomerular Filt Rate >60 [facility] Comment:Chronic Kidney Disea se: Estimated GFR < 60 mL/min/1.66a8Klyoli Kidney Disease: Estimated GFR < 15 mL/min/1.73m2 Glucose 98 60 - 115 mg/dL [facility] Calcium 9.8 8.4 - 10.2 mg/dL [facility] 06/10/2024 10:5 7 AM EDT 06/10/2024 10:57 AM EDT us Generic External Data Provider LAB BLOOD ORDERAB LES Final Result Performing Organization Address [facility] Co de Phone Number [facility] [address] [place] [phone] * Urinalysis with Reflex to Microscopic (06/10/2024 10:55 AM EDT) Color Urine Yellow [facility] Appearance Urine Clear [facility] PH 6.5 5.0 - 9.0 [facility] Glucose Urine UA Negative Negative mg/dL [facility] Urine Blood Negative Negative [facility] Specific [place] - Urine 1.020 1.005 - 1.025 [facility] Urine Protein Negative Neg-Trace mg/dL [facility] Urine Ketones Negative Negative mg/dL [facility] Nitrite Urine Negative Negative [facility] Leukocyte Esterase Urine Negative Negative [facility] 06/10/2024 10:5 5 AM EDT 06/10/2024 11:15 AM EDT Generic External Data Provider LAB URINE ORDERAB LES Final Result Performing Organization Address [facility] Co de Phone Number [facility] [address] [place] [phone] * HIV-1/2 Antigen and Antibodies, Fourth Generation, with Reflexes (04/24/2024 12:50 PM EST) HIV AB/AG Nonreactive Nonreactive [facility] Comment:HIV-1 p24 Ag and/or HIV-1/HIV-2 Ab not detected.A test result that is nonreactive does not exclude thepossibility of exposure to or infection with HIV-1 and/orHIV-2. Nonreactive results in this assay for individualswith prior exposure to HIV-1 and/or HIV-2 may be due toantigen and antibody levels that are below the limit ofdetection of this assay.The [employer] HIV Ag/Ab Combo assay result andsupplemental assay results should be interpreted inconjunction with the patient's clinical presentation,history and other laboratory results. If the results areinconsistent with clinical evidence, additional testing issuggested to confirm the result. Blood Venous blood specimen / Unknown 04/24/2024 12:50 PM EST 04/24/2024 1:10 PM EST Mery Hernandez MD LAB BLOOD ORDERABLES Final Result [facility] [address] [place] [phone] * Cologuard?? colon cancer screening (06/22/2023 7:30 AM EDT) Cologuard Result Negative Negative 06/26/19 12:44 AM EDT [facility] (CLIA #:[id number]) Comment: NEGATIVE TEST RESULT. A negative Cologuard [...] cancer. ??Following a negative Cologuard result, the [employer] Cancer Society and U.S. Multi-Society Task Force screening guidelines recommend a Cologuard re-screening interval of 3 years. References: [employer] Guideline for Colorectal Cancer Screening: https://www.cancer.org/cancer/seunf-epwitc-bytrwt/qrajdixyj-xstckzbnc-tudbtke/ac s-rec ommendations.html.; Surjit BENOIT, Joellen JARVIS, Jessica ShoreK, Colorectal Cancer Screening: Recommendations for Physicians and Patients from the U.S. Multi-Society Task Force on Colorectal Cancer Screening , Am J Gastroenterology 2017; 112:6232-9803. TEST DESCRIPTION: Composite algorithmic analysis of stool [...] screened with both Cologuard and colonoscopy. (Joesph Garrett et al, N Engl J Med 2014;370(14):0385-2799.) Cologuard may produce a false negative or false positive result (no colorectal cancer or precancerous polyp present at colonoscopy follow up). A negative Cologuard test result does not guarantee the absence of CRC or advanced adenoma (pre-cancer). The current Cologuard screening interval is every 3 years. ([employer] Society and U.S. Multi-Society Task Force). Cologuard performance data in a 10,000 patient pivotal study using colonoscopy as the reference method can be accessed at the following location: www.[employer]adia/results. Additional description of the Cologuard test process, warnings and precautions can be found at www.colVest[employer] Technical Textilesrd.Allocadia. Stool specimen (specimen) 06/22/2023 7:30 AM EDT 06/23/2023 11:01 AM EDT Mery Hernandez MD LAB MOLECULAR DIAGNOS TICS ORDERABLES Final Result [facility] (CLIA #:[id number]) [place] [address], from Last 3 Months or Most Recently Relevant to Health Maintenance Insurance [address] [facility] - HSN FULL (MEDICAID) Advance Directives Documents on File Type Date Recorded Patient Needle Straightener Expl anation HealthCare Proxy 02/09/2024 2:22 PM proxy Advance Directives and Living Will 09/26/2023 Health Care Proxy 09/26/23 Care Teams Demolition Crane Operator Relationship Specialty Start Date End Date Mery Theodore MD [address] [place] [phone] PCP - General Internal Medicine 04/19/23 Aleja Tang, JorgeD [address] [place] [phone] Pharmacist Internal Medicine 07/19/23
--- OUTSIDE RECORDS SUMMARY | 2024-07-27 08:41 | XMS_ITS | Encounter Summary ---
Author Organization [employer] Address [address] [facility] 7t [place] [address] Care Team Providers Care Electronic Game Developer Name Role Phone Mery Theodore MD Primary Care Provide r Aleja Tang PharmD Unavailable [phone] Reason for Visit * Reason Onset Date Comments Med Refill 06/08/2024 Encounter Details Date Type Department Care Team (Late st Contact Info) Description 06/08/2024 Telephone [facility] [address] [place], [place] [phone] Mery Theodore MD [address] [place], [place] [phone] Med Refill Social History Tobacco Use Types [...] 100 MG tablet To be sent to: [facility]/pharmacy #[id number] - [place], [place] - [address] [facility] documented in this encounter Plan of Treatment Upcoming Encounters Date Type Department Care Team (Late st Contact Info) Description 08/01/2024 1:30 PM EDT Medication Management [facility] [address] [place] [address] [phone] Aleja Tang, PharmD [address] [place] [address] 08/21/2024 3:30 PM EDT Office Visit [facility] [address] [place], [place] [phone] Mery Theodore MD [address] [place] [address] documented as of this encounter Goals Goal Patient Goal Type Associated Problems Recent Progress Patient-Stated? Author Blood Pressure < 140/90 Blood Pressure 112/80( 025 3:11 PM EDT) No Bernys-Macl darrion, Aleja, PharmD Quit using tobacco (cigarettes, smokeless, etc) Tobacco Use No Piers-Gambl e, Aleja, PharmD documented as of this encounter Visit Diagnoses Not on filedocumented in this encounter Additional Health Concerns Assessment Noted Time PHQ-9 Depression Total Score: 0 05/31/19 24 2:12 PM EDT documented as of this encounter Care Teams Electronic Game Developer Relationship Specialty Start Date End Date Mery Theodore MD [address] [place] [address] PCP - General Internal Medicine 04/19/23 Aleja Tang, PharmD [address] [place] [address] Pharmacist Internal Medicine 07/19/23 documented as of this encounter
--- OUTSIDE RECORDS SUMMARY | 2024-07-27 08:41 | XMS_ITS | Encounter Summary ---
Author Organization [employer] Address 75 [facility] 7t [place] [address] Care Team Providers Care Supervisor Electronic Coils Name Role Phone Sylvie Guerrero [facility] Primary Care Provider [phone] Mery Theodore MD Primary Care Provide r Aleja Tang PharmD Unavailable Reason for Visit * Reason Comments Med Refill Encounter Details Date Type Department Care Team (Late st Contact Info) Description 02/27/2023 Refill [facility] [address] [place], [place] [phone] Yolanda Sylvie, [facility] [address] [place], [place] [phone] Essential hypertension Social History Tobacco Use Types [...] Description 08/01/2024 1:30 PM EDT Medication Management [facility] [address] [place] [address] Aleja Tang, PharmD [address] [place] [address] 08/21/2024 3:30 PM EDT Office Visit [facility] [address] [place] [address] Mery Theodore MD [address] [place] [address] documented as of this encounter Visit Diagnoses Diagnosis Essential hypertension Unspecified essential hypertension documented in this encounter Care Teams Supervisor Electronic Coils Relationship Specialty Start Date End Date [facility] [address] [place] [phone] PCP - General Family Medicine 11/14/21 04/18/23 Mery Theodore MD [address] [place] [address] [phone] PCP - General Internal Medicine 04/19/23 Aleja Tang, JorgeD [address] [place] [phone] Pharmacist Internal Medicine 07/19/23 documented as of this encounter
--- OUTSIDE RECORDS SUMMARY | 2024-07-27 08:41 | XMS_ITS | Encounter Summary ---
Author Organization [employer] Address [address] [facility] 7t [place] [address] Care Team Providers Care Senior Care Assistant Name Role Phone [facility] Primary Care Provider [phone] Mery Theodore MD Primary Care Provide r Aleja Tang PharmD Unavailable Reason for Visit * Reason Onset Date Comments Medication Question 09/02/2022 Encounter Details Date Type Department Care Team (Late st Contact Info) Description 09/02/2022 Telephone [facility] [address] [place], [place] [phone] [facility] [address] [place], [place] [phone] Medication Question Social History Tobacco Use Types [...] to provider. Pcp sent new script to [facility] pharmacy ,. Pt aware * Telephone Encounter - Dylon Tsang - 09/03/2022 10:49 AM EDT Tc from pt requesting status on script, [employer] contacted pharmacy , pharmacist stated they did not receive script , Please re fax script. Please contact at [phone] * Telephone Encounter - Janae Lai - 09/02/2022 2:07 PM EDT Tc from pt requesting status on script for chlorthalidone (Hygroton) 25 MG tablet. [employer] advised request has been sent to PCP. Pt expressed concerns and stated cannot be with out Meds. PCP [facility] * Telephone Encounter - Jennifer Stein - 09/02/2022 10:54 AM EDT Tc from pt calling to inform went to moss picker his medication chlorthalidone (Hygroton) 25 MG tablet but was only given 3 pills . [employer] inform pt that a 90 day script was sent today and expert medical writer called pharmacy to see if they received script . Pharmacy informed they have not gotten script and asked tore sent . documented in this encounter Plan of Treatment Upcoming Encounters Date Type Department Care Team (Late st Contact Info) Description 08/01/2024 1:30 PM EDT Medication Management [facility] [address] [place] [phone] Aleja Tang, PharmD [address] [place] [address] 08/21/2024 3:30 PM EDT Office Visit [facility] [address] [place] [address] Mery Theodore MD [address] [place] [address] documented as of this encounter Visit Diagnoses Diagnosis Essential hypertension Unspecified essential hypertension documented in this encounter Care Teams Senior Care Assistant Relationship Specialty Start Date End Date Sylvie Guerrero FNP [address] [place] [address] PCP - General Family Medicine 11/14/21 04/18/23 Mery Theodore MD [address] [place] [address] PCP - General Internal Medicine 04/19/23 Aleja Tang, JorgeD [address] [place] [address] Pharmacist Internal Medicine 07/19/23 documented as of this encounter
--- OUTSIDE RECORDS SUMMARY | 2024-07-27 08:41 | XMS_ITS | Encounter Summary ---
Author Organization [employer] Address [address] [facility] 7t [place] [address] Care Team Providers Care Trashman Name Role Phone Sylvie Guerrero [facility] Primary Care Provider [phone] Mery Theodore MD Primary Care Provide r Aleja Tang PharmD Unavailable [phone] Encounter Details Date Type Department Care Team (Late st Contact Info) Description 05/14/2022 Telephone [facility] [address] [place] [address] [place], [place], [facility] [address] [place] [address] Social History Tobacco Use Types Packs/Day Years [...] Description 08/01/2024 1:30 PM EDT Medication Management [facility] [address] [place] [address] [phone] Aleja Tang, PharmD [address] [place] [address] 08/21/2024 3:30 PM EDT Office Visit [facility] [address] [place] [address] Mery Theodore MD [address] [place], [place] [phone] documented as of this encounter Visit Diagnoses Not on filedocumented in this encounter Care Teams Trashman Relationship Specialty Start Date End Date [facility] [address] [place] [address] PCP - General Family Medicine 11/14/21 04/18/23 Mery Theodore MD [address] [place] [address] [phone] PCP - General Internal Medicine 04/19/23 Aleja Tang, JorgeD [address] [place] [address] [phone] Pharmacist Internal Medicine 07/19/23 documented as of this encounter
--- OUTSIDE RECORDS SUMMARY | 2024-07-27 08:41 | XMS_ITS | Encounter Summary ---
Author Organization [employer] Address [address] [facility] 7t [place] [address] Care Team Providers Care Prepared Foods Associate Name Role Phone Sylvie Guerrero REGISTERED VETERINARY TECHNICIAN Primary Care Provider [phone] Mery Theodore MD Primary Care Provide r Aleja Tang PharmD Unavailable [phone] Encounter Details Date Type Department Care Team (Late Contact Info) Description 06/03/2022 Orders Only [facility] [address] [place] [address] Chiara Aponte LPN Social History Tobacco Use [...] Department Care Team (Late Contact Info) Description 08/01/2024 1:30 PM EDT Medication Management [facility] [address] [place], [place] [phone] Aleja Tang, PharmD [address] [place], [place] [phone] 08/21/2024 3:30 PM EDT Office Visit [facility] [address] [place], [place] [phone] Mery Theodore MD [address] [place] [address] documented as of this encounter Visit Diagnoses Not on filedocumented in this encounter Care Teams Prepared Foods Associate Relationship Specialty Start Date End Date Sylvie Guerrero FNP [address] [place] [phone] PCP - General Family Medicine 11/14/21 04/18/23 Mery Theodore MD [address] [place] [address] [phone] PCP - General Internal Medicine 04/19/23 Aleja Tang, JorgeD [address] [place] [phone] Pharmacist Internal Medicine 07/19/23 documented as of this encounter
--- OUTSIDE RECORDS SUMMARY | 2024-07-27 08:41 | XMS_ITS | Clinical Summary ---
Author Organization [facility] Address [address] [place] [address] Care Team Providers Care Tugboat Dispatcher Name Role Phone Nathalie Leroy Primary Care Provider [phone] Allergies No known active allergies Medications amLODIPine [...] provided him additional information about this in Maltese), and attempting to quit smoking. I will [...] COVID-19 Vaccine (1 - 2023-25 season) 2023 Alcohol/Substance Use Screening 03/22/2024 Depression Screening and Follow-Up 03/22/2024 Social Drivers of Health Annual Screening 03/22/2024 Influenza Vaccine (Season Ended) 2024 RSV Vaccine (60+ years old a nd patients) (1 - 1-dose 75+ series) 01/11/2051 Insurance [address] [place], [place] [id number] [place] [address] Advance Directives Documents on File Type Date Recorded Patient Process Control Specialist Expl anation Health Care Proxy 03/05/2021 12:15 PM [facility] PROX[facility] Care Teams Tugboat Dispatcher Relationship Specialty Start Date End Date Nathalie Leroy [address] [place] [phone] PCP - General 01/02/21
--- OUTSIDE RECORDS SUMMARY | 2024-07-27 08:41 | XMS_ITS | Referral Summary ---
Author Organization [facility] Address [address] [place] [address] Care Team Providers Care Data Architect Manager Name Role Phone Nathalie [place] Primary Care Provider [phone] Allergies No known active allergies Medications amLODIPine [...] provided him additional information about this in [place]), and attempting to quit smoking. I will [...] Plan of Treatment Not on file Insurance [facility] Advance Directives Documents on File Type Date Recorded Patient Systems Technologist Expl [facility] Care Proxy 03/05/2021 12:15 PM [facility] C[facility] PROXY Care Teams Data Architect Manager Relationship Specialty Start Date End Date Nathalie Leroy [address] [place] [phone] PCP - General 01/02/21
[2024-07-27 11:49] LABS: Alanine Aminotransferase 14 U/L (0-40); Albumin Level 4.2 g/dL (3.5-5.0); Alkaline Phosphatase 63 U/L (39-117); Aspartate Amino Transferase 49 U/L (5-37); Bilirubin Direct 0.3 mg/dL (0.0-0.5); Cholesterol 153 mg/dL (<200); HDL Cholesterol 23 mg/dL (>40); LDL Cholesterol Calculated 93 mg/dL (<100); Total Protein 7.4 g/dL (6.5-8.0); Triglycerides 185 mg/dL (<150)
== END 2024-07-27 08:26 | disposition home or self-care (01) ==
LOC: HO.HHCL 08:25
PROVIDERS: Visit Provider Internal Medicine
DX: E78.5 Hyperlipidemia, unspecified (principal)
CPT/HCPCS: 36415; 80061; 80076

== ENCOUNTER 2024-07-31 11:42 | Outpatient (AMB) | payer OTHER, SELFPAY ==
--- NOTE | 2024-07-31 11:50 | A.OFFVIS_ITS ---
Vital Signs 07/31/24 11:52 Height 6 ft 3 in Weight 216 lb BMI 27.0 BP 132/82 Blood Pressure Location Lt brachial Position Sitting Respiration 16 Pulse 69 Pulse Source Pulse Oximeter Pulse Oximetry (%) 97 Oxygen Delivery Method Room Air Intake Visit Reasons: 2 months fu Ramp Supervisor Required: Yes Ramp Supervisor Services: Ramp Supervisor Offered & Declined Ramp Supervisor Name: Prefers to translate Allergies No Known Allergies Allergy (Verified 07/31/24 11:53) Medication List - Last Reconciled 07/31/24 by Cris Ellison LPN amlodipine 10 mg PO DAILY atenolol 50 mg PO DAILY chlorthalidone 50 mg PO DAILY lidocaine 5% patches topical DAILY magnesium 250 mg PO DAILY olmesartan 20 mg PO DAILY omega-3 fatty acids 500 mg PO DAILY potassium gluconate 550 mg PO DAILY sildenafil (Viagra) 100 mg PO DAILY PRN HPI HPI 2 months fu: Details: History of Present Illness The patient is a 49-year-old male presenting with recurrent musculoskeletal pain. He describes intermittent episodes of pain with initial improvement following physical therapy, but a recurrence once therapy is stopped. Due to experiencing severe pain during a prior massage session where he was positioned face-down, the patient expresses fear and reluctance towards resuming PT, concerned about experiencing similar pain again. There is a noted absence of current physical therapy, but a plan to restart as a prerequisite for insurance authorization of an MRI. The pain's specifics, such as primary location or radiation, are not detailed; however, movement is haily ntified as an exacerbating factor, interfering with the patient's routine activities. Pain Description - Onset: Intermittent recurrence. - Quality: Severe pain during past massage therapy; apprehensive toward PT repeating such pain. - Primary Location: Not specifically mentioned. - Exacerbating Factors: Movement, prior trauma during therapy. - Alleviating Factors: Temporary improvement with physical therapy historically; however, specific activities for relief not detailed. Physical Exam - Appears afebrile. - Alert and oriented. - Mood and affect appropriate. - Follows and participates in conversation appropriately. - Respiratory effort is unlabored. Results Pain Management - Affect: Significant fear and anxiety around PT due to prior traumatic experience. - Analgesia: Not currently on medications for pain; exact pain scores not specified. - Adverse Effects: Not noted; specific medication side effects not discussed. - Activities of Daily Living: Pain interferes with day-to-day activities, particularly those involving movement. - Aberrant Drug Related Behaviors: Not mentioned in conversation. [facility] Medical History (Updated 06/05/24 @ 12:41 by Mesfin Milian MD) White coat syndrome with diagnosis of hypertension Erectile dysfunction Resistant hypertension Chronic hepatitis C without hepatic coma Hypersomnia Tobacco dependence syndrome Essential (primary) hypertension Physical Exam Vital Signs: Last Vital Signs Pulse 69 07/31/24 11:52 Resp 16 07/31/24 11:52 BP 132/82 07/31/24 11:52 Pulse Ox 97 07/31/24 11:52 Oxygen Delivery Method Room Air 07/31/24 11:52 BMI result Body Mass Index 27.0 Assessment & Plan Assessment & Plan (1) Low back pain: Code(s): M54.50 - Low back pain, unspecified Category: Medical Plan Plan - Initiate physical therapy with gentle progression and explicit differentiation from previous massage experiences. - Consider MRI if PT proves ineffective or painful, supporting insurance authorization upon demonstrated need. - Follow-up arranged in two months for reassessment based on PT outcomes and MRI considerations. - Enlist PT practices focused on avoiding previously painful maneuvers, underscoring active and comfort-centric approaches. - Urgency in scheduling PT noted to meet insurance stipulations for MRI eligi bility. Patient was informed and verbally consented to the use of an ambient scribe for clinic note documentation during this visit. Discussion Notes During the visit, I discussed with the patient the management plan centered around restarting physical therapy, approached gradually to prevent recurrence of previous traumatic pain experiences. I emphasized that PT differs substantially from massage therapy, which had caused significant discomfort in the past. If the patient experiences increased pain levels during PT, I advised them to contact me so that we can influence insurance to authorize an MRI. We agreed upon meeting after two months to evaluate physical therapy efficacy, addressing concerns diligently and coordinating further necessary diagnostics or adjustments. Patient Instructions - Begin physical therapy focusing on gentle, slow progress to avoid previous pain issues. - Notify the office if experiencing new or worsening pain during PT sessions. - Schedule PT promptly for MRI authorization contingencies. - Attend follow-up in two months to re-evaluate pain status and therapy outcomes. Coding Level of Care Code Est Pt Level 3 (29491) Diagnoses Low back pain M54.50
[2024-07-31 11:52] VITALS: BP 132/82; PULSE 69; RESP 16; O2SAT 97; BMI 27.0
--- OUTSIDE RECORDS SUMMARY | 2024-07-31 12:28 | XMS_ITS | Clinical Summary ---
Author Organization [employer] Address [address] [facility] 7t [place] [address] Care Team Providers Care O And M Supervisor Name Role Phone Mery Theodore MD Primary Care Provide r Aleja Tang PharmD Unavailable [phone] Allergies No known active allergies Medications * [...] 5 Active ergocalciferol (Vitamin D2) 1.25 MG (30874 UT) capsule Take 1 capsule (1.25 mg) [...] provided him additional information about this in Swedish), and attempting to quit smoking. I will [...] Encounters Date Type Department Care Team Description 07/27/2024 Orders Only [address] [address] Mery Theodore MD 07/17/2024 2:00 PM EDT Telemedicine [address] [address] Allie Driver MD Chronic hepatitis C without hepatic coma (CMS/HCC) (Primary Dx); Hepatitis C virus infection cured after antiviral drug therapy 07/17/2024 Travel 07/03/[address] [address] Mery Theodore MD Chart Prep 06/30/2024 Patient Outreach [address] [address] Mery Theodore MD Pre-visit Planning (SDOH screening negative and tobacco screening negative) 06/21/2024 Orders Only [address] [address] Mery Theodore MD Dyslipidemia (Primary Dx) 06/20/2024 Travel 06/15/2024 8:40 AM EDT Office Visit [facility] [address] [place] [address] Chiara Yañez DO Tongue lesion (Primary Dx); Throat irritation; Chronic nasal congestion; Erectile dysfunction, unspecified erectile dysfunction type 06/14/[address] [address] Mery Theodore MD Nurse Triage 06/10/2024 Orders Only [address] [address] Allie Driver MD 06/08/2024 Telephone [facility] [address] [place] [address] Mery Theodore MD Med Refill 06/08/2024 Refill [facility] [address] [place] [address] Mery Theodore MD Essential (primary) hypertension; Erectile dysfunction, unspecified erectile dysfunction type 05/30/2024 Telephone [facility] [address] [place] [address] Vandana Bennett RN 05/19/2024 11:20 AM EST Office Visit [facility] [address] [place] [address] Angel Vee MD Chronic bilateral low back pain without sciatica (Primary Dx); Elevated blood pressure reading in office without diagnosis of hypertension 05/19/[address] [address] Mery Theodore MD ER Follow-up 05/16/[address] [address] Mery Theodore MD Med Refill from Last [...] the past 12 months, has t he [employer], gas, oil or water company threatened to [...] Description 08/01/2024 1:30 PM EDT Medication Management [facility] [address] [place] [address] Aleja Tang, PharmD [address] [place] [address] 08/21/2024 3:30 PM EDT Office Visit [facility] [address] [place], [place] [phone] Mery Theodore MD [address] [place], [place] [phone] Health Maintenance Due Date Last Done Comments [...] of 2 - PCV) 01/11/1995 COVID-19 Vaccine ( - season) 2023 12/10/2020, 11/19/2020 Influenza Vaccine (#1) 2023 12/25/2020 Depression Screening 05/30/2024 05/31/2023, 05/31/19 Tobacco Screening 06/20/2025 06/20/2024 SDOH Screening 06/30/2025 06/30/2024 Zoster Vaccines (1 of 2) 01/11/2026 Colorectal Cancer Screening 06/21/2026 FIT DNA/Cologuard 06/21/2026 06/22/2023 Lipid Panel 07/27/2029 07/27/2024, 05/21, 02/08/2024, Additional history exists DTaP/Tdap/Td Vaccines (2 - [...] Procedure Name Priority Date/Time Associated Diagnosis Comments LIPID PANEL, STANDARD Routine 07/27/2024 8:27 AM EDT HEPATIC FUNCTION PANEL Routine 07/27/2024 8:27 AM EDT POCT INFLUENZA B (ID NOW RAPID MOLECULAR) [...] Maintenance Results * (ABNORMAL) Hepatic Function Panel (07/27/2024 8:27 AM EDT) Only the most recent of2 resultswithin the time period is included. Bilirubin, Total 1.0 0.0 - 1.0 mg/dL [facility] Bilirubin, Direct 0.3 0.0 - 0.5 mg/dL [facility] Aspartate Amino Transferase 49(H) 5 - 37 U/L [facility] Comment:Slight Hemolysis.Int erpret result with caution. Alanine Aminotransferase 14 0 - 40 U/L [facility] Total Protein 7.4 6.5 - 8.0 g/dL [facility] Albumin Level 4.2 3.5 - 5.0 g/dL [facility] Alkaline Phosphatase 63 39 - 117 U/L [facility] 07/27/2024 8:27 AM EDT 07/27/2024 11:12 AM EDT us Mery [place] MD LAB BLOOD ORDERABLES Final Result [facility] [address] [place] [address] [phone] * (ABNORMAL) Lipid Panel, Standard (07/27/2024 8:27 AM EDT) Only the most recent of2 resultswithin the time period is included. Triglycerides 185(H) <150 mg/dL [facility] Comment:Desirable Triglyceri de: less than 150 mg/dLBorderline High Triglyceride 150-199 mg/dLHigh Triglyceride: 200-499 mg/dLVery High Triglyceride: greater than or equal to 5OO mg/dL Cholesterol 153 <200 mg/dL [facility] Comment:Desirable Cholestero l: less than 200 mg/dLBorderline High Cholesterol: 200-239 mg/dLHigh Cholesterol: greater than 239 mg/dL LDL Cholesterol Calculated 93 <100 mg/dL [facility] Comment:Desirable LDL: less than 100 mg/dLNear Optimal/Above Optimal LDL: 110- 129 mg/dLBorderline High LDL: 130-159 mg/dLHigh LDL: 160-189 mg/dLVery High LDL: greater than or equal to 190 mg/dL HDL Cholesterol 23(L) >40 mg/dL [facility] Comment:Desirable HDL: great er than 40 mg/dL Note: This HDL assay may give artificially low results in patients with liver disease. 07/27/2024 8:27 AM EDT 07/27/2024 11:12 AM EDT us Mery Hernandez MD LAB BLOOD ORDERABLES Final Result Performing Organization Address City/[facility]/ZIP Co de Phone Number [facility] [address] [place] [phone] * Influenza B (ID NOW Rapid Molecular) (06/15/2024 9:16 AM EDT) Influenza B Negative Negative, Indeterminate [facility] Swab 06/15/2024 9:16 AM EDT us Chiara Yañez DO POINT OF CARE TEST ENTER/ALBERTO T ORDERABLES Final Result Performing Organization Address City/[facility]/ZIP Co de Phone Number [facility] [address] [place] [phone] * Influenza A (ID NOW Rapid Molecular) (06/15/2024 9:16 AM EDT) Influenza A Negative Negative, Indeterminate [facility] Swab 06/15/2024 9:16 AM EDT Chiara Yañez DO POINT OF CARE TEST ENTER/ALBERTO T ORDERABLES Final Result Performing Organization Address [facility] Co de Phone Number [facility] [address] [place] [phone] * POCT Rapid COVID Ag (06/15/2024 9:16 AM EDT) Pathologist [facility] Rapid COVID Ag Negative [facility] Swab 06/15/2024 9:16 AM EDT Chiara Yañez DO POINT OF CARE TEST ENTER/ALBERTO T ORDERABLES Final Result Performing Organization Address [facility] de Phone Number [facility] [address] [place] [phone] * POCT rapid strep A manually resulted (06/15/2024 9:16 AM EDT) [facility] Rapid Strep A Screen Negative Negative, None Detected [facility] Swab 06/15/2024 9:16 AM EDT Chiara Otilio DO POINT OF CARE TEST ENTER/ALBERTO T ORDERABLES Final Result Performing Organization Address [facility] de Phone Number [facility] [address] [place] [phone] * (ABNORMAL) Basic Metabolic Panel (06/10/2024 10:57 AM EDT) [facility] Sodium 139 135 - 145 mmol/L [facility] Potassium 3.6 3.3 - 5.1 mmol/L [facility] Chloride 102 96 - 108 mmol/L [facility] Carbon Dioxide 30(H) 22 - 29 mmol/L [facility] Anion Gap 11(L) 12 - 20 [facility] Urea Nitrogen (BUN) 18(H) 9 - 16 mg/dL [facility] Creatinine, Serum 1.02 0.5 - 1.4 mg/dL [facility] Estimated Glomerular Filt Rate >60 [facility] Comment:Chronic Kidney Disea se: Estimated GFR < 60 mL/min/1.43a9Ytdbmg Kidney Disease: Estimated GFR < 15 mL/min/1.73m2 Glucose 98 60 - 115 mg/dL [facility] Calcium 9.8 8.4 - 10.2 mg/dL [facility] 06/10/2024 10:5 7 AM EDT 06/10/2024 10:57 AM EDT us Generic External Data Provider LAB BLOOD ORDERAB LES Final Result Performing Organization Address [facility] Co de Phone Number [facility] [address] [place] [phone] * Urinalysis with Reflex to Microscopic (06/10/2024 10:55 AM EDT) Color Urine Yellow [facility] Appearance Urine Clear [facility] PH 6.5 5.0 - 9.0 [facility] Glucose Urine UA Negative Negative mg/dL [facility] Urine Blood Negative Negative [facility] Specific [place] - Urine 1.020 1.005 - 1.025 [facility] Urine Protein Negative Neg-Trace mg/dL [facility] Urine Ketones Negative Negative mg/dL [facility] Nitrite Urine Negative Negative [facility] Leukocyte Esterase Urine Negative Negative [facility] 06/10/2024 10:5 5 AM EDT 06/10/2024 11:15 AM EDT us Generic External Data Provider LAB URINE ORDERAB LES Final Result Performing Organization Address [facility] Co de Phone Number [facility] [address] [place] [phone] * HIV-1/2 Antigen and Antibodies, Fourth Generation, with Reflexes (04/24/2024 12:50 PM EST) HIV AB/AG Nonreactive Nonreactive [facility] Comment:HIV-1 p24 Ag and/or HIV-1/HIV-2 Ab not detected.A test result that is nonreactive does not exclude thepossibility of exposure to or infection with HIV-1 and/orHIV-2. Nonreactive results in this assay for individualswith prior exposure to HIV-1 and/or HIV-2 may be due toantigen and antibody levels that are below the limit ofdetection of this assay.The [employer] HIV Ag/Ab Combo assay result andsupplemental assay results should be interpreted inconjunction with the patient's clinical presentation,history and other laboratory results. If the results areinconsistent with clinical evidence, additional testing issuggested to confirm the result. Blood Venous blood specimen / Unknown 04/24/2024 12:50 PM EST 04/24/2024 1:10 PM EST us Mery [place] MD LAB BLOOD ORDERABLES Final Result [facility] [address] [place] [phone] * Cologuard?? colon cancer screening (06/22/2023 7:30 AM EDT) Pathologist [facility] Cologuard Result Negative Negative 06/26/19 12:44 AM EDT [employer] (CLIA #:[id number]) Comment: NEGATIVE TEST RESULT. A negative Cologuard [...] cancer. ??Following a negative Cologuard result, the [place] Cancer Society and U.S. Multi-Society Task Force screening guidelines recommend a Cologuard re-screening interval of 3 years. References: [place] [employer] Guideline for Colorectal Cancer Screening: https://www.cancer.org/cancer/mpaqr-uzbizh-mobfjq/qzzqgoupd-bqmaztwrp-alhkght/ac s-rec ommendations.html.; Surjit BENOIT, Joellen JARVIS, Jessica ShoreK, Colorectal Cancer Screening: Recommendations for Physicians and Patients from the U.S. Multi-Society Task Force on Colorectal Cancer Screening , Am J Gastroenterology 2017; 112:0629-3909. TEST DESCRIPTION: Composite algorithmic analysis of stool [...] screened with both Cologuard and colonoscopy. (Joesph De Leon, N Engl J Med 2014;370(14):2179-1622.) Cologuard may produce a false negative or false positive result (no colorectal cancer or precancerous polyp present at colonoscopy follow up). A negative Cologuard test result does not guarantee the absence of CRC or advanced adenoma (pre-cancer). The current Cologuard screening interval is every 3 years. ([place] [employer] Society and U.S. Multi-Society Task Force). Cologuard performance data in a 10,000 patient pivotal study using colonoscopy as the reference method can be accessed at the following location: www.[employer]results. Additional description of the Cologuard test process, warnings and precautions can be found at www.cologuard.com. Stool specimen (specimen) 06/22/2023 7:30 AM EDT 06/23/2023 11:01 AM EDT Mery [place] MD LAB MOLECULAR DIAGNOS TICS ORDERABLES Final Result [employer] (CLIA #:[id number]) [place] [address], from Last 3 Months or Most Recently Relevant to Health Maintenance Insurance [facility] - HSN FULL (MEDICAID) Advance Directives Documents on File Type Date Recorded Patient Cutter Operator Helper Expl anation HealthCare Proxy 02/09/2024 2:22 PM proxy Advance Directives and Living Will 09/26/2023 Health Care Proxy 09/26/23 Care Teams O And M Supervisor Relationship Specialty Start Date End Date Mery Theodore MD [address] [place] [address] PCP - General Internal Medicine 04/19/23 Aleja Tang PharmD [address] [place] [address] Pharmacist Internal Medicine 07/19/23
--- OUTSIDE RECORDS SUMMARY | 2024-07-31 12:28 | XMS_ITS | Referral Summary ---
Author Organization [facility] Address [address] [place] [address] Care Team Providers Care Data Typist Name Role Phone Nathalie Leroy Primary Care Provider [phone] Allergies No known active allergies Medications amLODIPine [...] provided him additional information about this in Yemeni), and attempting to quit smoking. I will [...] Plan of Treatment Not on file Insurance [facility] Advance Directives Documents on File Type Date Recorded Patient Adobe Layer Expl [facility] Care Proxy 03/05/2021 12:15 PM [facility] CARE PROXY Care Teams Data Typist Relationship Specialty Start Date End Date Nathalie Leroy [address] [place] [phone] PCP - General 01/02/21
--- OUTSIDE RECORDS SUMMARY | 2024-07-31 12:28 | XMS_ITS | Clinical Summary ---
Author Organization [facility] Address [address] [place] [address] Care Team Providers Care Paint Mixer Hand Name Role Phone Nathalie Leroy Primary Care Provider [phone] Allergies No known active allergies Medications amLODIPine [...] provided him additional information about this in Zimbabwean), and attempting to quit smoking. I will [...] - 1-dose 75+ series) 01/11/2051 Insurance [address] [place], [place] [id number] [place] [address] Advance Directives Documents on File Type Date Recorded Patient Grinder Set Up Operator External Expl anation Health Care Proxy 03/05/2021 12:15 PM [facility] PROX[facility] Care Teams Paint Mixer Hand Relationship Specialty Start Date End Date Nathalie Leroy [address] [place] [phone] PCP - General 01/02/21
--- OUTSIDE RECORDS SUMMARY | 2024-07-31 12:28 | XMS_ITS | Encounter Summary ---
Author Organization [employer] Address [address] [facility] 7t [place] [address] Care Team Providers Care Translator Deaf Name Role Phone Sylvie Guerrero [facility] Primary Care Provider [phone] Mery Theodore MD Primary Care Provide r Aleja Tang PharmD Unavailable Encounter Details Date Type Department Care Team (Late st Contact Info) Description 05/14/2022 Telephone [facility] [address] [place] [address] Yolanda, [place], [facility] [address] [place] [address] Social History Tobacco Use Types Packs/Day Years [...] Description 08/01/2024 1:30 PM EDT Medication Management [facility] [address] [place] [address] [phone] Aleja Tang, PharmD [address] [place] [address] 08/21/2024 3:30 PM EDT Office Visit [facility] [address] [place] [address] Mery Theodore MD [address] [place], [place] [phone] documented as of this encounter Visit Diagnoses Not on filedocumented in this encounter Care Teams Translator Deaf Relationship Specialty Start Date End Date [facility] [address] [place] [phone] PCP - General Family Medicine 11/14/21 04/18/23 Mery Theodore MD [address] [place] [address] [phone] PCP - General Internal Medicine 04/19/23 Aleja Tang, JorgeD [address] [place] [address] [phone] Pharmacist Internal Medicine 07/19/23 documented as of this encounter
--- OUTSIDE RECORDS SUMMARY | 2024-07-31 12:28 | XMS_ITS | Encounter Summary ---
Author Organization [employer] Address [address] [facility] 7t [place] [address] Care Team Providers Care Tapper Supervisor Name Role Phone Sylvie Guerrero [employer] Primary Care Provider [phone] Mery Theodore MD Primary Care Provide r Aleja Tang PharmD Unavailable [phone] Encounter Details Date Type Department Care Team (Late Contact Info) Description 06/03/2022 Orders Only [facility] [address] [place] [address] Chiara Aponte LPN Social History Tobacco Use [...] Description 08/01/2024 1:30 PM EDT Medication Management [facility] [address] [place], [place] [phone] Aleja Tang, PharmD [address] [place], [place] [phone] 08/21/2024 3:30 PM EDT Office Visit [facility] [address] [place], [place] [phone] Mery Theodore MD [address] [place] [phone] documented as of this encounter Visit Diagnoses Not on filedocumented in this encounter Care Teams Tapper Supervisor Relationship Specialty Start Date End Date Sylvie Guerrero FNP [address] [place] [phone] PCP - General Family Medicine 11/14/21 04/18/23 Mery Theodore MD [address] [place] [address] [phone] PCP - General Internal Medicine 04/19/23 Aleja Tang, JorgeD [address] [place] [phone] Pharmacist Internal Medicine 07/19/23 documented as of this encounter
--- OUTSIDE RECORDS SUMMARY | 2024-07-31 12:28 | XMS_ITS | Encounter Summary ---
Author Organization [employer] Address [address] [facility] 7t [place] [address] Care Team Providers Care Cafe Manager Name Role Phone Mery Theodore MD Primary Care Provide r Aleja Tang PharmD Unavailable [phone] Reason for Visit * Reason Onset Date Comments Med Refill 06/08/2024 Encounter Details Date Type Department Care Team (Late st Contact Info) Description 06/08/2024 Telephone [facility] [address] [place], [place] [phone] Mery Theodore MD [address] [place], [place] [phone] Med Refill Social History Tobacco Use Types [...] 100 MG tablet To be sent to: [facility]/pharmacy #[id number] - [place], [place] - [address] [facility] documented in this encounter Plan of Treatment Upcoming Encounters Date Type Department Care Team (Late st Contact Info) Description 08/01/2024 1:30 PM EDT Medication Management [facility] [address] [place] [address] [phone] Aleja Tang, PharmD [address] [place] [address] 08/21/2024 3:30 PM EDT Office Visit [facility] [address] [place], [place] [phone] Mery Theodore MD [address] [place] [address] documented as of this encounter Goals Goal Patient Goal Type Associated Problems Recent Progress Patient-Stated? Author Blood Pressure < 140/90 Blood Pressure 112/80( 025 3:11 PM EDT) No Bernys-Macl adrrion, Aleja, PharmD Quit using tobacco (cigarettes, smokeless, etc) Tobacco Use No Piers-Gambl e, Aleja, PharmD documented as of this encounter Visit Diagnoses Not on filedocumented in this encounter Additional Health Concerns Assessment Noted Time PHQ-9 Depression Total Score: 0 05/31/19 24 2:12 PM EDT documented as of this encounter Care Teams Cafe Manager Relationship Specialty Start Date End Date Mery Theodore MD [address] [place] [address] PCP - General Internal Medicine 04/19/23 Aleja Tang, PharmD [address] [place] [address] Pharmacist Internal Medicine 07/19/23 documented as of this encounter
--- OUTSIDE RECORDS SUMMARY | 2024-07-31 12:28 | XMS_ITS | Encounter Summary ---
Author Organization [employer] Address [address] [facility] 7t [place] [address] Care Team Providers Care Avionics Systems Integration Specialist Name Role Phone Mery Theodore MD Primary Care Provide r Aleja Tang PharmD Unavailable [phone] Encounter Details Date Type Department Care Team (Late st Contact Info) Description 07/27/2024 Orders Only [facility] [address] [place], [place] [phone] Mery Theodore MD [address] [place], [place] [phone] Social History Tobacco Use Types Packs/Day Years [...] Description 08/01/2024 1:30 PM EDT Medication Management [facility] [address] [place] [phone] Piers-JewellIsasa, PharmD [address] [place] [address] 08/21/2024 3:30 PM EDT Office Visit [facility] [address] [place] [address] Mery Theodore MD [address] [place] [address] documented as of this encounter Goals Goal Patient Goal Type Associated Problems Recent Progress Patient-Stated? Author Blood Pressure < 140/90 Blood Pressure 112/80( 025 3:11 PM EDT) No Piers-Gambl e, Aleja, PharmD Quit using tobacco (cigarettes, smokeless, etc) Tobacco Use No Piers-Gambl e, Aleja, PharmD documented as of this encounter Procedures Procedure Name Priority Date/Time Associated Diagnosis Comments HEPATIC FUNCTION PANEL Routine 07/27/2024 8:27 AM EDT LIPID PANEL, STANDARD Routine 07/27/2024 8:27 AM EDT documented in this encounter Results * (ABNORMAL) Lipid Panel, Standard (07/27/2024 8:27 AM EDT) Triglycerides 185(H) <150 mg/dL [facility] Comment:Desirable Triglyceri de: less than 150 mg/dLBorderline High Triglyceride 150-199 mg/dLHigh Triglyceride: 200-499 mg/dLVery High Triglyceride: greater than or equal to 5OO mg/dL Cholesterol 153 <200 mg/dL [facility] Comment:Desirable Cholestero l: less than 200 mg/dLBorderline High Cholesterol: 200-239 mg/dLHigh Cholesterol: greater than 239 mg/dL LDL Cholesterol Calculated 93 <100 mg/dL [facility] Comment:Desirable LDL: less than 100 mg/dLNear Optimal/Above Optimal LDL: 110- 129 mg/dLBorderline High LDL: 130-159 mg/dLHigh LDL: 160-189 mg/dLVery High LDL: greater than or equal to 190 mg/dL HDL Cholesterol 23(L) >40 mg/dL [facility] Comment:Desirable HDL: great er than 40 mg/dL Note: This HDL assay may give artificially low results in patients with liver disease. 07/27/2024 8:27 AM EDT 07/27/2024 11:12 AM EDT us Mery [place] MD LAB BLOOD ORDERABLES Final Result [facility] [address] [place] [phone] * (ABNORMAL) Hepatic Function Panel (07/27/2024 8:27 AM EDT) Bilirubin, Total 1.0 0.0 - 1.0 mg/dL [facility] Bilirubin, Direct 0.3 0.0 - 0.5 mg/dL [facility] Aspartate Amino Transferase 49(H) 5 - 37 U/L [facility] Comment:Slight Hemolysis.Int erpret result with caution. Alanine Aminotransferase 14 0 - 40 U/L [facility] Total Protein 7.4 6.5 - 8.0 g/dL [facility] Albumin Level 4.2 3.5 - 5.0 g/dL [facility] Alkaline Phosphatase 63 39 - 117 U/L [facility] 07/27/2024 8:27 AM EDT 07/27/2024 11:12 AM EDT us Mery [place] MD LAB BLOOD ORDERABLES Final Result [facility] [address] [place] [phone] documented in this encounter Visit Diagnoses Not on filedocumented in this encounter Additional Health Concerns Assessment Noted Time PHQ-9 Depression Total Score: 0 05/31/19 24 2:12 PM EDT documented as of this encounter Care Teams Avionics Systems Integration Specialist Relationship Specialty Start Date End Date Mery Theodore MD [address] [place] [address] PCP - General Internal Medicine 04/19/23 Aleja Tang, Arsh [address] [place] [address] Pharmacist Internal Medicine 07/19/23 documented as of this encounter
--- OUTSIDE RECORDS SUMMARY | 2024-07-31 12:28 | XMS_ITS | Encounter Summary ---
Author Organization [employer] Address [address] [facility] [address] [place] [address] Care Team Providers Care Double Ending Machine Operator Name Role Phone Sylvie Guerrero [facility] Primary Care Provider [phone] Mery Theodore MD Primary Care Provide r Aleja Tang PharmD Unavailable Reason for Visit * Reason Comments Med Refill Encounter Details Date Type Department Care Team (Late st Contact Info) Description 02/27/2023 Refill [facility] [address] [place], [place] [phone] Yolanda Sylvie, [facility] [address] [place], [place] [phone] Essential hypertension Social History Tobacco Use Types [...] Description 08/01/2024 1:30 PM EDT Medication Management [facility] [address] [place] [phone] Aleja Tang, PharmD [address] [place] [address] 08/21/2024 3:30 PM EDT Office Visit [facility] [address] [place] [address] Mery Theodore MD [address] [place] [address] documented as of this encounter Visit Diagnoses Diagnosis Essential hypertension Unspecified essential hypertension documented in this encounter Care Teams Double Ending Machine Operator Relationship Specialty Start Date End Date [facility] [address] [place] [id number] PCP - General Family Medicine 11/14/21 04/18/23 Mery Theodore MD [address] [place] [address] [phone] PCP - General Internal Medicine 04/19/23 Aleja Tang, JorgeD [address] [place] [phone] Pharmacist Internal Medicine 07/19/23 documented as of this encounter
--- OUTSIDE RECORDS SUMMARY | 2024-07-31 12:28 | XMS_ITS | Encounter Summary ---
Author Organization [employer] Address [address] [facility] [address] [place] [address] Care Team Providers Care Drum Cleaner Name Role Phone [facility] Primary Care Provider Mery Theodore MD Primary Care Provide r Aleja Tang PharmD Unavailable Reason for Visit * Reason Onset Date Comments Medication Question 09/02/2022 Encounter Details Date Type Department Care Team (Late st Contact Info) Description 09/02/2022 Telephone [facility] [address] [place], [place] [phone] [facility] [address] [place], [place] [phone] Medication Question Social History Tobacco Use Types [...] to provider. Pcp sent new script to [facility] pharmacy ,. Pt aware * Telephone Encounter - Dylon Tsang - 09/03/2022 10:49 AM EDT Tc from pt requesting status on script, Binder Cutter contacted pharmacy , pharmacist stated they did not receive script , Please re fax script. Please contact at [phone] * Telephone Encounter - Janae Lai - 09/02/2022 2:07 PM EDT Tc from pt requesting status on script for chlorthalidone (Hygroton) 25 MG tablet. Binder Cutter advised request has been sent to PCP. Pt expressed concerns and stated cannot be with out Meds. PCP [facility] * Telephone Encounter - Jennifer Stein - 09/02/2022 10:54 AM EDT Tc from pt calling to inform went to picking table worker his medication chlorthalidone (Hygroton) 25 MG tablet but was only given 3 pills . Binder Cutter inform pt that a 90 day script was sent today and justowriter operator called pharmacy to see if they received script . Pharmacy informed they have not gotten script and asked tore sent . documented in this encounter Plan of Treatment Upcoming Encounters Date Type Department Care Team (Late st Contact Info) Description 08/01/2024 1:30 PM EDT Medication Management [facility] [address] [place] [phone] Aleja Tang, PharmD [address] [place] [address] 08/21/2024 3:30 PM EDT Office Visit [facility] [address] [place] [phone] Mery Theodore MD [address] [place] [address] documented as of this encounter Visit Diagnoses Diagnosis Essential hypertension Unspecified essential hypertension documented in this encounter Care Teams Drum Cleaner Relationship Specialty Start Date End Date Sylvie Guerrero FNP [address] [place] [address] PCP - General Family Medicine 11/14/21 04/18/23 Mery Theodore MD [address] [place] [address] PCP - General Internal Medicine 04/19/23 Aleja Tang, JorgeD [address] [place] [phone] Pharmacist Internal Medicine 07/19/23 documented as of this encounter
== END 2024-07-31 12:33 | disposition home or self-care (01) ==
LOC: HO.PMC 11:43
PROVIDERS: PCP Internal Medicine; Visit Provider Internal Medicine
DX: M54.50 Low back pain, unspecified (principal)
CPT/HCPCS: 99213

== ENCOUNTER → 2024-07-31 11:42 | Outpatient (BNVA) | payer OTHER, SELFPAY | PROVIDERS: PCP Internal Medicine; Visit Provider Internal Medicine | DX: M54.50 Low back pain, unspecified (principal) | CPT/HCPCS: 99212 ==